=== PATIENT | female | born 2000 | race Caucasian/White ===

== ENCOUNTER 2025-01-06 11:34 | Outpatient (AMB) | payer OTHER, SELFPAY ==
--- NOTE | 2025-01-06 11:37 | MHC.PC.OV ---
Vital Signs 01/06/25 11:47 01/06/25 11:50 Height 5 ft 6.14 in Weight 291 lb 8 oz BMI 46.8 BP 136/96 H 134/98 H Blood Pressure Location Rt brachial Rt brachial Position Sitting Sitting Respiration 16 Pulse 83 Pulse Source Pulse Oximeter Pulse Oximetry (%) 97 Oxygen Delivery Method Room Air Intake Visit Reasons: OD GRINDER OPERATOR-PE Intake Note: New patient visit. hasn't taken adhd medication in a year. Psychiatrist wants heart clearance. Best Worker Required: No Accompanied by: Significant Other Allergies guanfacine Allergy (Severe, Verified 01/06/25 11:49) low blood pressure gabapentin Allergy (Verified 01/06/25 11:41) Fever Medication List - Last Reconciled 01/06/25 by Nadine Walls PA-C albuterol sulfate 90 mcg/actuation (Ventolin HFA) inhalation escitalopram oxalate 20 mg PO DAILY escitalopram oxalate 10 mg PO DAILY levothyroxine 175 mcg PO DAILY rosuvastatin 10 mg PO BEDTIME Tobacco use date assessed: 01/06/25 Dental Screening Dental Screen Date: 01/06/25 Did you have a dental visit in the last 12 months?: No Did you have a dental problem in the last 6 months where you did not have access to dental care?: No Was dental information given to patient?: Patient declined HPI OD GRINDER OPERATOR-PE HPI Details Patient is a 24-year-old female with a significant past medical history of hypothyroidism, hypertension, hyperlipidemia, asthma, bipolar, schizoaffective disorder, ptsd, anxiety, depression and ADHD presenting today to [facility] care. She is transferring from [facility]. Psych: Currently following with Dr. Hodges ? kei (pt will get), [facility]. On Lexapro 30 mg. They are waiting on adderall for bp to come down then restart. CV: Blood pressure today in the office is 134/98. He is currently on lisinopril 10 mg daily. Cholesterol is managed with rosuvastatin 10 mg at bedtime. Unsure of the last time she has had his lipids checked. Endo: Last TSH was WNL. On levothyroxine 175 mcg. GI: state she has been getting a lot of acid reflux x 2 weeks and taking tums BID. She states that it is helpful. No difficulty swallowing. No weight loss, n/v/d. Trying to cut out soda. Community Development Officer: overdue, has irregular menses. Fam hx: Mother has TIAs, htn, boderline personality and bipolar 2; maternal grandfather HTN; Paternal grandfather dm, htn, cva; Father hypothyroid PFSH Family History (Updated 01/06/25 @ 11:46 by Roshni Mauricio CMA) Brother Alcoholism Substance abuse Sister Anxiety Depression Mother Bipolar 2 disorder Schizoaffective disorder Social History (Updated 01/06/25 @ 11:50 by Roshni Mauricio CMA) Housing: Apartment Alcohol intake: current Comment: less then once a month Patient Tobacco Use Status: Former Tobacco user Cigarettes Per Day: 10 Years Smoked: 2 e-Cigarette/Vaping Use: Currently Using Second Hand Smoke Exposure: No service: No Current occupational status: disabled Current occupation: [employer] Cognitive needs: No Hearing needs: No Vision needs: No Questionnaire PHQ-9 Over the last 2 weeks, how often have you been bothered by any of the following problems? 1. Little interest or pleasure in doing things: several days 2. Feeling down, depressed, or hopeless: several days 3. Trouble falling or staying asleep, or sleeping too much: nearly every day 4. Feeling tired or having little energy: nearly every day 5. Poor appetite or overeating: nearly every day 6. Feeling bad about yourself - or that you are a failure or have let yourself or your family down: several days 7. Trouble concentrating on things, such as reading the newspaper or watching television: nearly every day 8. Moving or speaking so slowly that other people could have noticed. Or the opposite - being so fidgety or restless that you have been moving around a lot more than usual: several days 9. Thoughts that you would be better off or of hurting yourself in some way: several days Total score: 17 Depression Screening Interpretation: Positive Depression Screening Follow-up: Existing condition, In treatment and Community Mental Health Worker F/U Depression Screening Done: Yes 83780 - PHQ-9 Billing: Yes Source: Developed by Drs. Corey Hall, Yaneth Black, Patrice Boykin and colleagues, with an educational hector from [employer]. Thrive Questionnaire Date Thrive assessed: 12/23/24 I am a: Patient What is your living situation today?: I have a place to live, but I am worried about losing it in the future Within the past 12 months, did the food you bought not last and you didn't have the money to get more?: Often true Within the past 12 months, did you worry whether your food would run out before you got money to buy more?: Often true Do you have trouble paying for medicines?: No Do you have trouble getting transportation to medical appointments?: No Do you have trouble paying your heating and electricity bill?: Yes Do you have trouble taking care of your child, family member or friend?: No Do you have trouble with day-to-day activities such as bathing, preparing meals, shopping, managing finances, etc.?: Yes Are you currently unemployed and looking for a job?: Yes Are you interested in more education?: Yes Please select the resources that you would like help with: None THRIVE Score: 4 AUDIT C Alcohol Use Questionnaire (AUDIT-C) 1. How often do you have a drink containing alcohol?: Monthly or less 2. How many drinks containing alcohol do you have on a typical day when you are drinking?: 1 or 2 3. How often do you have six or more drinks on one occasion?: Never Total Score: 1 ABHI-7 AMB Questionnaire ABHI-7 Date ABHI - 7 assessed: 01/06/25 Feeling nervous, anxious, or on edge: 1 = Several days Not being able to stop or control worryin = Several days Worrying too much about different things: 1 = Several days Trouble relaxin = Nearly every day Being so restless that it is hard to sit still: 3 = Nearly every day Becoming easily annoyed or irritable: 3 = Nearly every day Feeling afraid as if something awful might happen: 1 = Several days Total ABHI-7 score (0-4 normal; 5-9 mild; 10-14 moderate; 15-21 severe): 13 Source: Developed by Drs. Corey Hall, Yaneth Black, Patrice Boykin and colleagues, with an educational hector from [employer]. ABHI-7 Assessment Billing ABHI-7 Assessment Tool: ABHI-7 Assessment 34367 Physical exam (Primary Care) Vital Signs: Last Vital Signs Pulse 83 01/06/25 11:47 Resp 16 01/06/25 11:47 BP 134/98 H 03/20/25 11:50 Pulse Ox 97 01/06/25 11:47 Oxygen Delivery Method Room Air 01/06/25 11:47 BMI result Body Mass Index 46.8 Tobacco/Smoking Status: Tobacco use Status Tobacco use date assessed 01/06/25 01/06/25 11:51 Patient Tobacco Use Status Former Tobacco user 01/06/25 11:51 e-Cigarette/Vaping Use Currently Using 01/06/25 11:51 PHQ-9: PHQ-9 Score PHQ-9: Total score 17 01/06/25 11:51 Depression Screening Interpretation: Positive Depression Screening Follow-up: Existing condition, In treatment and Community Mental Health Worker F/U Thrive Assessment: Date of Thrive Assessment Date Thrive assessed 12/23/24 01/06/25 11:51 Const Orientation/consciousness: patient oriented x3 HENMT Ears: hearing grossly normal bilaterally Neck Thyroid: Thyroid normal Lymphatic: no lymphadenopathy noted Resp Auscultation: clear to auscultation bilaterally Cardio Rate: regular rate Rhythm: regular rhythm Heart sounds: S1 normal heart sound present and S2 normal heart sound present GI Inspection: Yes normal to inspection Palpation (GI): Soft to palpation and Other GI palpation findings present (nontender, no cva tenderness) Auscultation: normoactive bowel sounds Rectal Exam - Female: deferred Skin General skin exam: no rashes or lesions noted Neuro General: patient oriented x3, gait normal and no focal motor deficits Coding Level of Care Code New Pt Level 4 (40283) Complex EM visit Add On G2211 Diagnoses HTN (hypertension) I10 Dyslipidemia E78.5 GERD (gastroesophageal reflux disease) K21.9 Additional Codes PHQ-9 - 47588 - PHQ-9 Billing: Yes ([id number]) ABHI-7 Assessment Billing - ABHI-7 Assessment Tool: ABHI-7 Assessment 17235 ([id number]) Assessment & Plan Assessment & Plan (1) HTN (hypertension): Code(s): I10 - Essential (primary) hypertension Category: Medical Plan: Increase lisinopril to 20 mg (2) Dyslipidemia: Code(s): E78.5 - Hyperlipidemia, unspecified Category: Medical Plan: Lipids ordered and LFTs. On Crestor 10 mg. (3) GERD (gastroesophageal reflux disease): Code(s): K21.9 - Gastro-esophageal reflux disease without esophagitis Category: Medical Plan: We will start omeprazole. Spent extensive time discussing diet changes. Plan Referral to gynecology. Overdue. Orders: Orders Complete Blood Count Auto Diff Today E78.5 - Hyperlipidemia, unspecified, I10 - Essential (primary) hypertension, K21.9 - Gastro-esophageal reflux disease without esophagitis UA CC w/rflx Micro + Cult Today E78.5 - Hyperlipidemia, unspecified, I10 - Essential (primary) hypertension, K21.9 - Gastro-esophageal reflux disease without esophagitis, Z13.220 - Encounter for screening for lipoid disorders Comprehensive [place]. Panel Fast Today E78.5 - Hyperlipidemia, unspecified, I10 - Essential (primary) hypertension, K21.9 - Gastro-esophageal reflux disease without esophagitis Hemoglobin A1c Today E78.5 - Hyperlipidemia, unspecified, I10 - Essential (primary) hypertension, K21.9 - Gastro-esophageal reflux disease without esophagitis, R73.01 - Impaired fasting glucose TSH reflex Free T4 Today E78.5 - Hyperlipidemia, unspecified, I10 - Essential (primary) hypertension, K21.9 - Gastro-esophageal reflux disease without esophagitis Vitamin B12 and Folate Today E78.5 - Hyperlipidemia, unspecified, I10 - Essential (primary) hypertension, K21.9 - Gastro-esophageal reflux disease without esophagitis Magnesium Today E78.5 - Hyperlipidemia, unspecified, I10 - Essential (primary) hypertension, K21.9 - Gastro-esophageal reflux disease without esophagitis Lipid Panel Today E78.5 - Hyperlipidemia, unspecified, I10 - Essential (primary) hypertension, K21.9 - Gastro-esophageal reflux disease without esophagitis Referrals GAR[facility]AGE MAN Referral [id number] - Encounter for gynecological examination (general) (routine) without abnormal findings Medications: New omeprazole 20 mg PO DAILY 90 caps 0RF lisinopril 20 mg PO DAILY 90 tabs 0RF
[2025-01-06 11:47] VITALS: BP 136/96; PULSE 83; RESP 16; O2SAT 97; BMI 46.8
[2025-01-06 11:50] VITALS: BP 134/98
--- OUTSIDE RECORDS SUMMARY | 2025-01-06 13:59 | XMS_ITS | Clinical Summary ---
Author Organization [facility] Address [address] [place] [address] Care Team Providers Care Healthcare Financial Analyst Name Role Phone Zulema Golden Primary Care Provider [phone] Allergies Active Allergy Reactions Criticality Noted Date Comments Gabapentin Other (See Comments) 01/31/2021 Guanfacine Other (See Comments) 01/31/2021 Dizziness. Low blood pressure Medications Medication Sig Dispensed Refills Start Date End Date Status methylphenidate (RITALIN LA) 40 MG 24 hr capsule 40 mg. 0 12/04/2019 Active escitalopram (LEXAPRO) 5 MG tablet 30 mg. 0 Active levothyroxine (SYNTHROID) tablet 150 mcg 150 mcg. 0 12/17/2019 Active albuterol 108 (90 Base) MCG/ACT inhaler Inhale 2 puffs into the lungs every 6 (six) hours as needed. 0 Active Fluticasone Furoate-Vilanterol 200-25 MCG/INH AEPB Inhale into the lungs. 0 Active ARIPiprazole (ABILIFY) 5 MG tablet Take 5 mg by mouth daily. 0 Active Immunizations Name Administration Dates Next Due Covid-19 (Pfizer) Dilution Required 02/22/2021,0 01/31/2021 Family History Medical History Relation Name Comments Hypertension Mother Relation Name Status Comments Father Alive Mother Alive Social History Tobacco Use Types Packs/Day Years Used Date Smoking Tobacco: Never Assessed Sex and Gender Information Value Date Recorded Sex Assigned at Female 01/25/2021 9:50 AM EDT Gender Identity Male 01/25/2021 9:50 AM EDT Sexual Orientation Not on file Job Start Date Occupation Industry Not on file Not on file Not on file Last Filed Vital Signs Vital Sign Reading Time Taken Comments Blood Pressure 177/97 06/23/2022 8:11 PM EDT Pulse 90 06/23/2022 8:11 PM EDT Temperature 37.2 ??C (99 ??F) 06/23/2022 8:11 PM EDT Respiratory Rate 16 06/23/2022 8:11 PM EDT Oxygen Saturation 97% 06/23/2022 8:11 PM EDT Inhaled Oxygen Concentration - - Weight 133.8 kg (295 lb) 06/23/2022 8:11 PM EDT Height 162.6 cm (5' 4 ) 06/23/2022 8:11 PM EDT Body Mass Index 50.64 06/23/2022 8:11 PM EDT Plan of Treatment Health Maintenance Due Date Last Done Comments Hepatitis B Vaccines (1 of 3 - 3-dose series) 1998 Hepatitis C Screening 1998 Depression Screening 2010 BMI Counseling 02/22/2016 Preventative Health Evaluation 02/22/2016 DTap / Tdap / Td (1 - Tdap) 2017 Cervical Cancer Screening (Pap Smear) 2019 COVID-19 Vaccine (2023-2 5 season) 2024 02/22/2021, 01/31/2021 Influenza Vaccine (#1) 2024 07/22/2013 Pneumococcal Vaccine Aged Out No long er eligible based on patient's age to complete this topic RSV Ped < 20 months Aged Out No longe r eligible based on patient's age to complete this topic Care Teams Healthcare Financial Analyst Relationship Specialty Start Date End Date Zulema Golden PA [address] [place] [id number] PCP - General Nursing Support Worker 01/31/21
--- OUTSIDE RECORDS SUMMARY | 2025-01-06 13:59 | XMS_ITS | Encounter Summary ---
Author Organization [facility] Address [address] [place] [address] Care Team Providers Care Drama Director Name Role Phone Zulema Golden Primary Care Provider Encounter Details Date Type Department Care Team (Latest Contact Info) Description 05/05/2020 Scanned Document [facility] [employer] [facility] [address] [place] [id number] System, Provider Not In 12/31/2019 [facility] Prior Authorization Testosterone Cypionate Social History Tobacco Use Types Packs/Day Years Used Date Smoking Tobacco: Some Days Smokeless Tobacco: Never Comments Unknown Sex and Gender Information Value Date Recorded Sex Assigned at Female 04/25/2020 7:22 AM EDT Legal Sex Nonbinary 12/02/2022 11:15 PM EST Gender Identity Other 12/02/2022 11:15 PM EST Sexual Orientation Bisexual 04/25/2020 7: 22 AM EDT documented as of this encounter Plan of Treatment Not on file documented as of this encounter Visit Diagnoses Not on filedocumented in this encounter Care Teams Drama Director Relationship Specialty Start Date End Date Zulema Golden PA [address] [facility] [address] [place] [address] PCP - General Internal Medicine 12/30/19 documented as of this encounter
--- OUTSIDE RECORDS SUMMARY | 2025-01-06 13:59 | XMS_ITS | Clinical Summary ---
Author Organization [facility] Address [address] [place] [address] Care Team Providers Care Nutrition Internship Name Role Phone Zulema Golden Primary Care Provider Allergies Active Allergy Reactions Criticality Noted Date Comments Gabapentin Other 08/22/2017 Hypotension and fever per patient Guanfacine Nausea And Vomiting,Other Low 01/28/2018 Low blood pressure, dizziness Medications escitalopram (LEXAPRO) 20 mg tablet 12/14/2019 Active levothyroxine (SYNTHROID, LEVOTHROID) 150 mcg tablet 150 mcg. Take 1 tablet daily 12/17/2019 Active methylphenidate LA (RITALIN LA) 40 mg 24 hr capsule 40 mg. 1 capsule daily 12/04/2019 Active albuterol (PROVENTIL;VENT NENO) 90 mcg/actuation inhaler Inhale 2 puffs every 6 (six) hours if needed. Active ARIPiprazole (ABILIFY) 5 mg tablet Take 5 mg by mouth 1 (one) time each day. Take 1 1/2 tablets daily 11/25/2017 Active ferrous sulfate 325 mg (65 mg iron) tablet take1 tablet by mouth daily 01/02/2018 Active testosterone cypionate (Depo-Testoster one) 200 mg/mL injectionIndica tions:Gender dysphoria Inject 0.3 mL (60 mg total) into the shoulder, thigh, or buttocks every 7 (seven) days. 12 mL 08/07/2021 Active Active Problems Problem Noted Date Diagnosed Date Asthma 12/30/2019 Hypothyroid 12/30/2019 Gender dysphoria 12/30/2019 Schizoaffective disorder, depressive type ([facility]) 11/12/2017 Immunizations Immunization Administration Dates Next Due Pfizer Purple Cap SARS-COV-2 Vaccination 021,01/31/2021 Social History Tobacco Use Types Packs/Day Years Used Date Smoking Tobacco: Some Days Smokeless Tobacco: Never Comments Unknown Sex and Gender Information Value Date Recorded Sex Assigned at Female 04/25/2020 7:22 AM EDT Legal Sex Nonbinary 12/02/2022 11:15 PM EST Gender Identity Other 12/02/2022 11:15 PM EST Sexual Orientation Bisexual 04/25/2020 7: 22 AM EDT Last Filed Vital Signs Vital Sign Reading Time Taken Comments Blood Pressure 136/82 08/07/2021 10:05 AM EDT Pulse 91 08/07/2021 10:05 AM EDT Temperature 36.5 ??C (97.7 ??F) 08/07/2021 1 0:05 AM EDT Respiratory Rate 16 12/30/2019 10:4 3 AM EDT Oxygen Saturation 98% 12/30/2019 10: 43 AM EDT Inhaled Oxygen Concentration - - Weight 129.4 kg (285 lb 3.2 oz) 021 10:05 AM EDT Height 165.1 cm (5' 5 ) 08/07/2021 10:0 5 AM EDT Body Mass Index 47.46 08/07/2021 10:05 AM EDT Plan of Treatment Scheduled Orders Name Type Priority Associated Diagnoses Orde r Schedule Comprehensive metabolic panel Lab Routine Gender dysphoria Expected: 11/02/2021, Expires: 08/14/2022 Hematocrit Lab Routine Gender dysphoria Expected: 11/02/2021, Expires: 08/14/2022 Hemoglobin Lab Routine Gender dysphoria Expected: 11/02/2021, Expires: 08/14/2022 Testosterone, Total, MS Lab Routine Gender dysphoria Expected: 11/02/2021, Expires: 08/14/2022 Comprehensive metabolic panel Lab Routine Gender dysphoria Expected: 08/07/2021 (Approximate), Expires: 08/07/2022 Lipid Panel Standard Lab Routine Gender dysphoria Expected: 08/07/2021 (Approximate), Expires: 08/07/2022 TSH Lab Routine Gender dysphoria Expected: 08/07/2021 (Approximate), Expires: 08/07/2022 Comprehensive metabolic panel Lab Routine Gender dysphoria Expected: 03/19/2020, Expires: 12/29/2020 CBC auto differential Lab Routine Gender dysphoria Expected: 12/30/2019 (Approximate), Expires: 12/29/2020 TSH Lab Routine Gender dysphoria 1 Occurrences starting 12/30/2019 until 12/29/2020 Health Maintenance Due Date Last Done Comments HPV Vaccines (1 - 3-dose series) 2013 Annual Physical Exam 02/22/2016 Pneumococcal Vaccine: Peds ( 0 to 5 Yrs) and At-Risk Pts (6 to 49 Yrs) (1 of 2 - PCV) 2017 Tdap and Td Vaccines Adult 2017 Pap Smear 2019 COVID-19 Vaccine (2023-2 5 season) 2024 02/22/2021, 01/31/2021 Influenza Vaccine (#1) 2024 HIB Vaccines Aged Out No longer eligi ble based on patient's age to complete this topic Hepatitis A Vaccines Aged Out No long er eligible based on patient's age to complete this topic IPV Vaccines Aged Out No longer eligi ble based on patient's age to complete this topic Meningococcal Vaccine Aged Out No fish radha eligible based on patient's age to complete this topic RSV <20 Months Aged Out No longer oli gible based on patient's age to complete this topic Insurance MEDICAID IN-STATE Care Teams Nutrition Internship Relationship Specialty Start Date End Date Zulema Golden PA [address] [facility] [address] [place] [address] PCP - General Internal Medicine 12/30/19
--- OUTSIDE RECORDS SUMMARY | 2025-01-06 13:59 | XMS_ITS | Data Portability ---
Author Organization [facility], [address] Address [address] [place] [address] Assessment No assessment recorded. Plan of Treatment Reminders Order Date Submit Date Provider Last Modified By Organization Details Last Modified Time Details Appointments None recorded. Lab streptococc us group A, culture, throat 2022 023 HUNGRY HORSE [facility] ([facility], [address] [place] [address], [place], [address], 3 12:06:29 rapid strep group A, throat 2022 023 [email or web address] _[facility], [address] [place] [address], [place], [address], 3 09:39:59 Referral otolaryngol ogist referral - Recurrent AOM and sinusitis for many years 2023 024 [email or web address] [facility], [address] [place], [address], 4 17:39:03 orthopedic surgeon referral 2023 024 [facility] Orthopedic Surgeon, [address], [facility] [address] [address], [place], [address], 4 08:44:46 physical therapist referral 2023 024 [facility] [place], [address] [place] [address], [address], 4 08:44:46 Procedures None recorded. Surgeries None recorded. Imaging None recorded. Medication Orders amoxicillin 875 mg-potassiu m clavulanate 125 mg tablet 2023 024 [facility], [address] [place], [address], 4 17:38:24 diclofenac sodium 75 mg tablet,nighat yed release 2023 [address], [address] [place], [address], 4 17:35:18 escitalopra m 20 mg tablet 2023 024 [facility], [address] [place], [address], 4 08:42:45 amoxicillin 875 mg-potassiu m clavulanate 125 mg tablet 2023 024 [facility], [address] [place], [address], 4 17:56:31 amoxicillin 875 mg tablet 2022 024 [id number], [address] [place], [address], 16:25:56 Patient TargetsNo targets recorded. Patient Instructions Encounter Date Encounter Id Patient Instructions Last Modified By Organization Details Last Modified Time 11/12/2022 [id number] sore throat: car e instructions [email or web address] Not available 11/12/2022 09:41:44 10/31/2023 [id number] ear infection (otitis media): care instructions Not available 10/31/2023 16:38:59 06/21/2024 [id number] knee pain or injury: care instructions Not available 06/21/2024 08:42:42 Reason for Referral Orthopedic Surgeon Referral for Injury of knee Referring Physician: Kaylie Baig, Urgent Care, Encounter Date: 06/21/2024 Physical Therapist Referral for Injury of knee Referring Physician: Kaylie Baig, Urgent Care, Encounter Date: 06/21/2024 Pricing Coordinator Referral fo r Chronic recurrent sinusitis Recurrent AOM and sinusitis for many years Referring Physician: Kaylie Baig, Urgent Care, Encounter Date: 10/07/2024 Results Created Date Observation Date Name Description Value Unit Range Abnormal Flag Note LastModifiedBy Organization Detail LastModifiedTime 11/12/1911/14/2022 BETA STREP GP A CULTU RE beta strep gp A culture COMMEN T abnormal Beta- hemol ytic colon ies, 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 Refer ence Range : Negat faiza Penic illin and ampic illin are drugs of choic e for treat ment of beta- hemol ytic strep tococ dawood infec tions . Susce ptibi lity testi ng of penic illin s and other beta- lacta m agent s appro dion by the FDA for treat ment of beta- hemol ytic strep tococ dawood infec tions need not be perfo rmed routi maggi becau se nonsu scept ible isola uli are extre gabrielle rare in any beta- hemol ytic strep tococ cus and have not been repor noe for Strep tococ cus pyoge alis (grou p A). (CLSI ) Not Available [facility] ([facility]) [address] [facility], [place], [address], 11/14/2022 12:06:29 11/12/1911/12/2022 rapid strep group A, throa t Unknown Analyte Normal = Negati ve Not Available [address] [place] [place], [address], 11/12/2022 09:39:47 11/12/1911/12/2022 rapid strep group A, throa t Unknown Analyte negati ve Not Available [address] [place], [address], 11/12/2022 09:39:47 Result Notes None recorded. Problems Name Problem SNOMED Code Status Onset Date Resolution Date Notes Provider Name and Address Organization Details Recorded Time Asthma 201855469 Active 2022 IRIS COUVERTIE R null, PA - [facility] 3 09:00:21 Diabetes mellitus 26295135 Active 2022 IRIS COUVERTIE R null, PA - [facility] 3 09:00:29 Hypothyroidism 61050108 Active 2022 IRIS COUVERTIE R null, PA - [facility] 3 09:00:35 Nasal sinus problem 608206673 Active 2022 IRIS COUVERTIE R null, PA - [facility] 3 09:00:48 Attention deficit hyperactivity disorder 926790844 Active 2022 IRIS COUVERTIE R null, PA - [facility] 3 09:01:11 Problem Notes None recorded. Procedures Surgical History Date Name Laterality Status Provider Name and Address Organization Details Recorded Time 4 Cerumen Removal by Irrigation completed MARCELA Elias [address] [place], [place] [address], [address], PA - [facility] 05/10/2024 18:13:53 Imaging Results None recorded. Procedure Notes None recorded. Medical Equipment None Reported. Allergies Allergen ID Allergen Name Allergen Category Reaction Reaction Severity Criticality Documentation Date Start Date Code Code System Note Provider Name and Address Organization Details Recorded Time 825066 gabapenti n medicatio n Not available Not available Not available 11/12/2022 75047 RxNorm IRIS COUVERTIE R null, PA - [facility] 3 08:58:46 783195 guanfacin e medicatio n other Not available Not available 11/12/2022 82354 RxNorm IRIS COUVERTIE R null, PA - [facility] 3 08:59:12 Medications Name Sig Start Date Stop Date Status Note LastModified by Organization Details LastModified Time lisinopril 10 mg tablet Take 1 tablet every day by oral route. active Not Available Not Available No t Available diclofenac sodium 75 mg tablet,nighat yed release Take 1 tablet twice a day by oral route for 14 days. 10/07 completed Not Available Not Available Not Available amoxicillin 875 mg-potassiu m clavulanate 125 mg tablet Take 1 tablet every 12 hours by oral route for 5 days. 2023 active Not Available Not Available Not Avai lable escitalopra m 20 mg tablet TAKE 1 TABLET BY MOUTH EVERY DAY active Not Available Not Available No t Available rosuvastati n 10 mg tablet Take 1 tablet every day by oral route. active Not Available Not Available No t Available levothyroxi ne active Not Available Not Available Not Available Ritalin 05/10 completed Not Available Not Available Not Available metformin 05/10 completed Not Available Not Available Not Available Adderall active Not Available Not Avai lable Not Available Lexapro active Not Available Not Avail able Not Available albuterol 90 mcg-budeson julienne 80 mcg/actuati on HFA aerosol inhaler Inhale by inhalatio n route. active Not Available Not Available No t Available Vitals Date Recorded Body height Pain severity - 0-10 verbal numeric rating [Score] - Reported Respiratory rate Body temperature Oxygen saturation Oxygen saturation in Arterial blood by Pulse oximetry Heart rate Body mass index (BMI) Body weight Systolic blood pressure Diastolic blood pressure Systolic blood pressure Diastolic blood pressure Provider Name and Address Organization Details Last Updated DateTime 4 165.1 cm 0 18 /min 97.5 [degF] 98 % 98 % 83 /min 45.3 kg/m2 516072. 12 g 158 mm[Hg] 106 mm[Hg] 150 mm[Hg] 98 mm[Hg] AILYN WEEMS PA - [facility] 4 16:30:53 Date Recorded Body height Body mass index (BMI) Body weight Body temperature Respiratory rate Heart rate Oxygen saturation Oxygen saturation in Arterial blood by Pulse oximetry Systolic blood pressure Diastolic blood pressure Provider Name and Address Organization Details Last Updated DateTime 3 165.1 cm 48.3 kg/m2 566385. 79 g 98.7 [degF] 18 /min 76 /min 97 % 97 % 128 mm[Hg] 88 mm[Hg] NEMO Reis PA - [facility] 3 09:04:38 Date Recorded Body height Body mass index (BMI) Body weight Body temperature Respiratory rate Oxygen saturation Oxygen saturation in Arterial blood by Pulse oximetry Heart rate Pain severity - 0-10 verbal numeric rating [Score] - Reported Systolic blood pressure Diastolic blood pressure Provider Name and Address Organization Details Last Updated DateTime 4 165.1 cm 45.3 kg/m2 937840. 12 g 97.7 [degF] 18 /min 100 % 100 % 89 /min 0 135 mm[Hg] 83 mm[Hg] Melvinatamar GallegosNolan [place] - [facility] 4 17:55:01 Date Recorded Body height Body mass index (BMI) Body weight Oxygen saturation Oxygen saturation in Arterial blood by Pulse oximetry Pain severity - 0-10 verbal numeric rating [Score] - Reported Heart rate Respiratory rate Body temperature Systolic blood pressure Diastolic blood pressure Provider Name and Address Organization Details Last Updated DateTime 4 165.1 cm 45.3 kg/m2 017204. 12 g 100 % 100 % 6 77 /min 18 /min 97.2 [degF] 136 mm[Hg] 93 mm[Hg] Tamika Isma [place] [facility] 4 08:32:31 Date Recorded Body height Body mass index (BMI) Body weight Oxygen saturation Oxygen saturation in Arterial blood by Pulse oximetry Pain severity - 0-10 verbal numeric rating [Score] - Reported Heart rate Respiratory rate Body temperature Systolic blood pressure Diastolic blood pressure Provider Name and Address Organization Details Last Updated DateTime 4 165.1 cm 44.9 kg/m2 412610. 94 g 98 % 98 % 0 76 /min 18 /min 98.3 [degF] 136 mm[Hg] 85 mm[Hg] Susan Rosario [facility] 4 17:34:50 Social History Question Answer Notes LastModified by Organizat ion Details LastModified Time Tobacco Smoking Status Former Smoker Susan gerardo PA - [facility] 10/07/2024 17:36:32 What Is Your Level Of Alcohol Consumption? None Information not available 11/12/2022 Are You Currently Employed? Yes [email or web address] Information not available 10/07/2024 Do You Or Have You Ever Used E-cigarettes Or Vape? Current User Of Electronic Cigarettes Information not available 10/07/2024 When Did You Quit Smoking? 1-5yearssincel kirby 07/2024 [email or web address] Information not available 10/07/2024 Have You Had A Flu Shot This Season? No [email or web address] Information not available 10/07/2024 If No, Would You Like A Flu Shot Today? No [email or web address] Information not available 10/07/2024 What Is Your Water Source? City Information not available 11/12/2022 What Is Your Heat Source? Gas Information not available 11/12/2022 Have You Had Direct Contact, Or Contact During Intimacy, With Monkeypox Rash, Scabs, Or Body Fluids From A Person With Monkeypox? No Information not available 11/12/2022 What Was The Date Of Your Most Recent Tobacco Screening? 10/07/2024 [email or web address] Information not available 10/07/2024 What Is Your Relationship Status? Domestic Partner [email or web address] Information not available 05/10/2024 Do You Or Have You Ever Used Smokeless Tobacco? Never Used Smokeless Tobacco [email or web address] Information not available 10/07/2024 Do You Use Any Illicit Or Recreational Drugs? No Information not available 11/12/2022 Have You Recently Traveled Abroad? No Information not available 11/12/2022 Do You Or Have You Ever Used Any Other Forms Of Tobacco Or Nicotine? Yes [email or web address] Information not available 10/07/2024 How Many Years Have You Used E-cigarettes Or Vape? 2023 [email or web address] Information not available 10/07/2024 Sex: Male Functional Status None recorded. Mental Status None recorded. Family History Relationship Description Onset Age of this Age Resolved Age Notes LastModified by Organization Details LastModified Time Father No current problems or disability Not available 09:01:14 Mother No current problems or disability Not available 09:01:14 Unspecified Relation Hypertensive disorder [email or web address] Not available 2023 16:31:11 Medical History No medical history recorded. Gynecological History Statement/Question Response Date of LMP 03/03/2024 Is there any chance of ? No LMP Definite Obstetrics History GPAL:G 0 P 0 0 0 0 Past Encounters Encounter ID Performer Location Encounter Start Date Encounter Closed Date Diagnosis/Indication Diagnosis SNOMED-CT Code Diagnosis ICD10 Code Diagnosis Note [id number] Jami Carr MD [address] [place] [address] 11/12/2022 08:46:40 11/12/2022 09:44:02 Acute pharyngitis 434895460 J02.9 [id number] [facility]ELA Elias [address] [facility] [facility] [address] [place] [address] 10/31/2023 16:12:06 10/31/2023 17:24:17 Acute left otitis media 877333651 H66.92 An ear infection may start with a cold and affect the middle ear (otitis media). It can hurt a lot. Most ear infections clear up on their own in a couple of days and do not need antibiotic s. Also, antibiotic s do not work against viruses, which may be the cause of your infection. Regular doses of pain relievers are the best way to reduce your fever and help you feel better.?How can you care for yourself at home?Take pain medicines exactly as directed.?If the doctor gave you a prescripti on medicine for pain, take it as prescribed .?If you are not taking a prescripti on pain medicine, take an over-the-c ounter medicine, such as acetaminop hen (Tylenol), ibuprofen (Advil, Motrin), or naproxen (Aleve). Read and follow all instructio ns on the label.?Do not take two or more pain medicines at the same time unless the doctor told you to. Many pain medicines have acetaminop hen, which is Tylenol. Too much acetaminop hen (Tylenol) can be harmful.?Plan to take a full dose of pain reliever before bedtime. Getting enough sleep will help you get better.?Try a warm, moist face cloth on the ear. It may help relieve pain.?If your doctor prescribed antibiotic s, take them as directed. Do not stop taking them just because you feel better. You need to take the full course of antibiotic s. [id number] MARCELA Elias [address] [place] [address] 05/10/2024 17:49:30 05/10/2024 18:17:54 Impacted cerumen in right ear 6974722718 883750 H61.21 Based on your presentati on and exam - you have cerumen impaction. We removed the wax from your ears today. You may feel like you have some residual water in the ear for the next couple of hours. If you have this sensation use rubbing alcohol (not peroxide) in the ear. This will help reabsorb the water left in the ear. If antibiotic ear drops were prescribed to you- then use them as prescribed . Sometimes antibiotic s are not needed and the decision is based on the presentati on of the ear after the procedure. Would advise using Debrox every 2 weeks to help with ear wax build up if you are prone to this. Do not use Q-tip deep in the ear because that just pushes wax back in the ear canal. You should be seen again if you develop any of the following symptoms:1 . Severe ear pain2. Fever3. Blood discharge from the ear or Purulent discharge from the ear4. Pain with touching the ear5. Skin redness outside the ear6. Swollen lymph nodes around the ear or neck7. Stiff neck. Thank you for using [facility] today, please feel free to contact our office if you have any questions or concerns. [id number] [facility]A Eli[facility] [address] [facility] [facility] [address] [place] [address] 06/21/2024 08:20:24 06/21/2024 08:44:45 Injury of knee 642060139 S89.92XA Based on your presentati on and exam, you are diagnosed with an knee sprain. I am going to prescribe you an anti-infla mmatory medication to help with the discomfort . Get a hinged knee brace at a pharmacy and wear that as much as you can Please schedule an appt with orthopedic s and physical therapy My suggestion s for this condition include:1. Ice2. Elevate3. Rest4. Take Tylenol if you do not have any allergies to these medication s. If you take a blood thinner you should not take NSAIDS like Ibuprofen. 5. After 3 days of icing - I would switch to heat - this will help reabsorb any bruising or swelling. I would be seen more urgently if you develop any of the following symptoms.1 . Numbness2. Cold Extremitie s3. Worsening Pain4. Skin Redness5. Calf Swelling Thank you for using [facility] [employer] , please contact our office if you have any questions or concerns. Anxiety 10355779 F41.9 We are filling your medication as a 1 time courtesy refill. We are unable to refill in the future. Please ensure you have follow up with your PCP for future medication management [id number] MARCELA Elias [address] [facility] [address] [place] [address] 10/07/2024 17:22:07 10/07/2024 17:39:02 Acute left otitis media 894173999 H66.92 An ear infection may start with a cold and affect the middle ear (otitis media). It can hurt a lot. Most ear infections clear up on their own in a couple of days and do not need antibiotic s. Also, antibiotic s do not work against viruses, which may be the cause of your infection. Regular doses of pain relievers are the best way to reduce your fever and help you feel better.?How can you care for yourself at home?Take pain medicines exactly as directed.?If the doctor gave you a prescripti on medicine for pain, take it as prescribed .?If you are not taking a prescripti on pain medicine, take an over-the-c ounter medicine, such as acetaminop hen (Tylenol), ibuprofen (Advil, Motrin), or naproxen (Aleve). Read and follow all instructio ns on the label.?Do not take two or more pain medicines at the same time unless the doctor told you to. Many pain medicines have acetaminop hen, which is Tylenol. Too much acetaminop hen (Tylenol) can be harmful.?Plan to take a full dose of pain reliever before bedtime. Getting enough sleep will help you get better.?Try a warm, moist face cloth on the ear. It may help relieve pain.?If your doctor prescribed antibiotic s, take them as directed. Do not stop taking them just because you feel better. You need to take the full course of antibiotic s. Chronic re current sinusitis 198886515 J32.9 Health Concerns Section Related Observation LastModified by Organization Detai ls LastModified Time None Recorded Concern Status LastModified by Organization Details LastModified Time None Recorded Advance Directives Directive None Recorded Payers Encounter Date Sequence Insurance Name Policy Number Policy Qiu Covered Member ID Qiu Member ID Guarantor Name 11/12/2022 1 [place] [id number] Lionel Sheldon Pleasent [id number] Fawad Reed 10/31/2023 1 [place] [id number] Lionel Sheldon Pleasent [id number] Fawad Reed 05/10/2024 2 [place] [facility] Fawad Reed [id number] Fawad Reed 05/10/2024 1 [facility] [employer] [facility] PLAN (MEDICAID HMO) PABLO Reed [id number] Fawad Reed 06/21/2024 2 [place] [facility] Fawad Reed [id number] Fawad Reed 06/21/2024 1 [facility] [employer] [facility] PLAN (MEDICAID HMO) PABLO Reed [id number] Fawad Reed 10/07/2024 2 [place] [facility] Fawad Reed [id number] Fawda Reed 10/07/2024 1 [facility] [employer] [facility] PLAN (MEDICAID HMO) PABLO Reed [id number] Fawad Reed Notes Date Note Type Note Provider Name and Address Organization Details Recorded Time 11/12/2022 text/html Sore throatRepor noe bypatient.Location:t hroat Severity:moderate Quality:sharp Onset/Timin weeks Associated Symptoms:no cough; no sputum production; no shortness of breath; no wheezing; no sinus pain; no vomiting; no nausea; No hoarseness Context:no sick contacts; no foreign travel; non-smoker Jami Carr MD [address] [place], [address], [place] - [facility] 11/12/2022 10:20:47 05/10/2024 text/html 24 y/o pt here w ith R ear feeling clogged for the past 3 days [place], [address], [place] PA - [facility] 05/10/2024 18:14:11 06/21/2024 text/html 24 y/o female he re with L knee pain after it may have subluxed last night. She has had issues with it for several years, and has not had evaluation or treatment.Squatted down last night and started having worsening pain. MARCELA Elias [address] [place], [address], PA - [facility] 06/21/2024 09:02:49 10/07/2024 text/html 24 y/o pt with several days of L ear discomfort and feeling clogged. h/o recurrent AOM and sinus issues[place], [address], [place] PA - [facility] 10/07/2024 17:46:52 OBGyn Episode No OBEpisode recorded.
--- OUTSIDE RECORDS SUMMARY | 2025-01-06 13:59 | XMS_ITS | Encounter Summary ---
Author Organization [facility] Address [address] [place] [address] Care Team Providers Care Drum Puller Name Role Phone Zulema Golden Primary Care Provider Encounter Details Date Type Department Care Team (Latest Contact Info) Description 05/05/2020 Scanned Document [employer] Information Management [address] [place] [address] System, Provider Not In 12/31/2019 Endocrinology Review of Systems Social History Tobacco Use Types Packs/Day Years [...] on filedocumented in this encounter Care Teams Drum Puller Relationship Specialty Start Date End Date Zulema Golden PA [address] [facility] [address] [place] [address] PCP - General Internal Medicine 12/30/19 documented as of this encounter
--- OUTSIDE RECORDS SUMMARY | 2025-01-06 13:59 | XMS_ITS | Encounter Summary ---
Author Organization [facility] Address [address] [place] [address] Care Team Providers Care Production Support Developer Name Role Phone Zulema Golden Primary Care Provider [phone] Zulema Golden Unavailable [phone] Encounter Details Date Type Department Care Team (Late st Contact Info) Description 02/16/2024 Orders Only [facility] Primary Care [address] [place] [address] Zulema Golden PA [address] [facility] [address] [place] [address] Social History Tobacco Use Types Packs/Day Years Used Date Smoking Tobacco: Every Day Cigarettes Comments:Smoking Status:Curr ently using tobacco PHQ-2 Answer Date Recorded PHQ-2 Score 0 01/16/2024 Intimate Partner Violence Answer Date R ecorded Fear of Current or Ex-Partner Not on file Emotionally Abused Not on file 06/04/2023 Physically Abused Not on file 06/04/2023 Sexually Abused Not on file 06/04/2023 Feel Safe at Home Not on file 06/04/2023 Comments Unknown Sex and Gender Information Value Date Recorded Sex Assigned at Female 12/24/2023 1:55 PM EST Legal Sex X 12/24/2023 1:55 PM EST Gender Identity Genderqueer or Non-binary 2023 1:55 PM EST Sexual Orientation Bisexual 12/24/2023 1: 55 PM EST documented as of this encounter Miscellaneous Notes * Result Encounter Note - Zulema Golden PA - 02/16/2024 9:26 PM EDT . documented in this encounter Plan of Treatment Not on file documented as of this encounter Goals Goal Patient Goal Type Associated Problems Recent Progress Patient-Stated? Author Blood Pressure < 140/90 Blood Pressure 132/94(01/15 2:42 PM EDT) No Zulema Golden PA Note: Above is your goal for blood pressure control. You may be able to prevent, reduce or eliminate the medication required for your blood pressure by regular measurement of your blood pressure at home, since home readings are often more reliable than measurements at the doctor? s office. You can also improve your blood pressure by getting regular exercise, keeping a normal weight, reducing your sodium/salt intake to 2000 mg/day, reducing caffeine and by limiting your alcohol intake. Men should limit consumption to no more than 2 drinks per day (beer, wine, or mixed drinks) and women should limit to one drink per day. Follow the DASH diet, a diet low in fat, cholesterol, red meat, and sweets. It emphasizes fruits, vegetables, and low-fat dairy foods. The DASH diet also includes whole-grain products, fish, poultry, and nuts. Quit smoking / using tobacco Lifestyle No Zulema Golden PA Note: Smoking can cause cancer, heart attacks, hardening of the arteries, bronchitis, emphysema, cough, shortness of breath, wrinkles, and premature aging and premature births. Some benefits of quitting smoking begin right away. Your risk of heart disease begins to decrease as soon as you quit. Your general health may also start to improve immediately because you are not irritating your lungs and more oxygen gets to your body organs. Your blood circulation is likely to get better. Other benefits may include fewer colds and lung infections as well as reduced risk of high blood pressure, stroke, and cancer. Interested in quitting smoking? Discuss medication options with your provider or contact the Quit To Win program at . Any insurance accepted. Quit smoking resources-http://makesSeeder.org HEMOGLOBIN A1C % < 7 Result Component 5.8(02/16/20 24 2:58 PM EDT) Alisha Hernández MA Note: Above is your goal for sugar control. Your risk for future diabetic complications such as blindness and amputation can be reduced by following your diabetic diet plan, and paying careful attention to self-monitoring your blood sugar and blood pressure at home. Please plan to check your blood sugar and blood pressure at the frequency suggested, and bring these numbers with you to your next scheduled visit. If you have difficulty reaching the goals which you have set for your diabetes your PCP can refer to one of our diabetes self-management support programs. A fasting blood sugar below 120 is ideal. documented as of this encounter Procedures * Due to [place] law, this organization might not be sharing negative HIV tests. Procedure Name Priority Date/Time Associated Diagnosis Comments THYROID STIMULATING HORMONE (TSH) WITH FREE T4 REFLEX, SERUM Routine 02/16/2024 2:58 PM EDT Acquired hypothyroidism T4, FREE, SERUM Routine 02/16/2024 2:58 PM EDT Acquired hypothyroidism HEMOGLOBIN A1C Routine 02/16/2024 2:58 PM EDT Type 2 diabetes mellitus without complication, without long-term current use of insulin (HCC) documented in this encounter Results * Due to [place] law, this organization might not be sharing negative HIV tests. * (ABNORMAL) T4, FREE, SERUM (02/16/2024 2:58 PM EDT) FT4 1.86(H) 0.70 - 1.80 ng/dL [facility] 02/16/2024 2:58 PM EDT 02/16/2024 9:53 PM EDT Narrative [facility] - 02/17/2024 1:44 AM EDT Testing Performed at: [facility], [address] [place], [place] [id number], , Non Linear Editor: Sherice Auguste MD CL#[id number] [facility] Final Resul t Performing Organization Address [facility] de Phone Number [facility] [address] [place] [address], * (ABNORMAL) THYROID STIMULATING HORMONE (TSH) WITH FREE T4 REFLEX, SERUM (02/16/2024 2:58 PM EDT) TSH (Thyrotropin) 0.42(L) 0.50 - 4.80 uIU/ml [facility] 02/16/2024 2:58 PM EDT 02/16/2024 9:53 PM EDT Narrative [facility] - 02/16/2024 10:58 PM EDT Track Order?->No Release result to patient->Immediate Testing Performed at: [facility], [address] [place] [address], , Non Linear Editor: Sherice Auguste MD CL#[id number] [facility] Final Resul t Performing Organization Address [facility] de Phone Number [facility] [address] [place] [address], * HEMOGLOBIN A1C (02/16/2024 2:58 PM EDT) Hemoglobin A1C 5.8 4.3 - 6.1 %A1C [facility] Comment: 5.7-6.4 Increased Risk of Diabetes >6.4 Consistent with Diabetes The [place] [employer] recommends a goal of less than 7% for diabetic patients. 02/16/2024 2:58 PM EDT 02/16/2024 9:53 PM EDT Narrative [facility] - 02/16/2024 10:22 PM EDT Track Order?->No Release result to patient->Immediate FASTING: NO Testing Performed at: [facility], [address] [place] [address], , Non Linear Editor: Sherice Auguste MD CL#[id number] us [facility] Final Resul t [facility] [address] [place] [address], documented in this encounter Visit Diagnoses Diagnosis Type 2 diabetes mellitus without complication, without long-term current use of insulin (HCC) Acquired hypothyroidism Unspecified hypothyroidism documented in this encounter Care Teams Production Support Developer Relationship Specialty Start Date End Date Zulema Golden PA [address] [facility] [address] [place] [address] PCP - General 05/26/23 Zulema Golden PA [address] [facility] [address] [place] [address] PCP - Backup PCP Internal Medicine 11/20/23 documented as of this encounter
--- OUTSIDE RECORDS SUMMARY | 2025-01-06 14:00 | XMS_ITS | Encounter Summary ---
Author Organization [facility] Address [address] [place] [address] Care Team Providers Care Spinner Open End Name Role Phone Zulema Golden Primary Care Provider [phone] Zulema Golden Unavailable [phone] Reason for Visit * Reason Comments Results Encounter Details Date Type Department Care Team (Late st Contact Info) Description 12/26/2023 Telephone [facility] Primary Care [address] [place] [id number] Zulema Golden PA [address] [facility] [address] [place] [address] Results Social History Tobacco Use Types Packs/Day Years Used Date Smoking Tobacco: Never Assessed Comments:Smoking Status:Curr ently using tobacco Intimate Partner Violence Answer Date R ecorded [...] as of this encounter Miscellaneous Notes * Telephone Encounter - Alisha Sutton MA - 12/26/2023 4:13 PM EST Spoke with pt I will have someone for admin put pt on schedule on friday * Telephone Encounter - Mary Castro - 12/26/2023 4:04 PM EST Please call patient back. * Telephone Encounter - Alisha Sutton MA - 12/26/2023 3:34 PM EST Called pt lvm to call me * Telephone Encounter - Zulema Golden PA - 12/26/2023 2:37 PM EST Please call pt- Appointment is needed as he has not been in the office for over a year. His labs doshow uncontrolled hypothyroidism. Please ask if he is taking his Levothyroxine 175mcg daily. If he is out of medications I can refill but he needs an ov kimberly * Telephone Encounter - Alisha Sutton MA - 12/26/2023 1:39 PM EST Please see * Telephone Encounter - Mary Castro - 12/26/2023 1:00 PM EST Patient is looking for lab results please. Patient would like any potential medications sent to [facility] today as he is leaving [facility]. Thank you documented in this encounter Plan of Treatment Not on file documented as of this encounter Visit Diagnoses Not on filedocumented in this encounter Care Teams Spinner Open End Relationship Specialty Start Date End Date Zulema Golden PA [address] [facility] [address] [place] [address] PCP - General 05/26/23 Zulema Golden PA [address] [address] PCP - Backup PCP Internal Medicine 11/20/23 documented as of this encounter
--- OUTSIDE RECORDS SUMMARY | 2025-01-06 14:00 | XMS_ITS | Encounter Summary ---
Author Organization [facility] Address [address] [place] [id number] Care Team Providers Care Boat Builder And Repairer Name Role Phone Abad Mccann MD Primary Care Provider Zulema Golden Primary Care Provider Abad Mccann MD Unavailable [phone] Encounter Details Date Type Department Care Team (Late st Contact Info) Description 09/24/2017 Scanned Document [facility] [address] [facility] [address] [place] [address] Sarah Sherman MD [address] [facility] [address] [place] [address] Social History Tobacco Use Types Packs/Day Years Used Date Smoking Tobacco: Some Days Sex and Gender Information Value Date Recorded Sex Assigned at Female 06/22/2023 1:10 AM EDT Gender Identity Gender fluid 12/02/2022 10:43 PM EST Sexual Orientation Bisexual 12/02/2022 10 :43 PM EST Sexual Orientation Pansexual 12/02/2022 10 :43 PM EST documented as of this encounter Plan of Treatment Not on file documented as of this encounter Visit Diagnoses Not on filedocumented in this encounter Care Teams Boat Builder And Repairer Relationship Specialty Start Date End Date Abad Mccann MD Carmina Ochoa [address] [place] [id number] PCP - General Family Medicine 10/09/16 10/28/20 Zulema Golden [address] [place] [address] [address] [place] [address] PCP - General Internal Medicine 10/29/20 Abad Mccann MD [address] [place] [address] [address] Family Medicine 10/29/20 documented as of this encounter
--- OUTSIDE RECORDS SUMMARY | 2025-01-06 14:00 | XMS_ITS | Data Portability ---
Author Organization [facility], [facility] Address [address] [place] [address] [id number] [place] [address] Care Team Providers Care Coding Quality Analyst Name Role Phone DEYSI MCCORMICK Primary Care Provider [phone] Assessment No assessment recorded. Plan of Treatment Reminders Order Date Submit Date Provider Last Modified By Organization Details Last Modified Time Details Appointments None recorded. Lab TSH + free T4, serum [facility], [address] [place], [address] 16:13:54 Referral None recorded. Procedures None recorded. Surgeries None recorded. Imaging None recorded. Medication Orders betamethaso ne valerate 0.1 % topical ointment 2021 [facility][id number], [address] [place], [address], 12:59:12 Patient TargetsNo targets recorded. Patient InstructionsNo instructions recorded. Reason for Referral None Reported. Problems Name Problem SNOMED Code Status Onset Date Resolution Date Notes Provider Name and Address Organization Details Recorded Time Asthma 182459990 Active 2021 Kiarelyn Dumont null, [facility] 11:59:50 Hypothyroidism 82269022 Active 2021 Kiarelyn Dumont null, [facility] 12:00:05 Type 2 diabetes mellitus 32230982 Active 2021 Kiarelyn Dumont null, [facility] 10/04/202 2 12:00:15 Mental disorder 48414668 [facility] 12:[facility] Schizoaffectiv e schizophrenia 883387717 [facility] 12:17[facility] Problem Notes None recorded. Procedures Surgical History Date Name Laterality Status Provider Name and Address Organization Details Recorded Time Mastectomy Bilateral completed Zhang Dumont [facility] 07/23/2022 12:12:20 Imaging Results None recorded. Procedure Notes None recorded. Medical Equipment None Reported. Allergies Allergen ID Allergen Name Allergen Category Reaction Reaction Severity Criticality Documentation Date Start Date Code Code System Note Provider Name and Address Organization Details Recorded Time 9513335 gabapenti n medicatio n fever Not available Not available 07/23/2022 08503 RxNorm Zhang Dumont [facility] 2 11:56:53 2012117 guanfacin e medicatio n Not available Not available Not available 07/23/2022 40130 RxNorm low bp Zhang Dumont [facility] 11:58:05 Medications Name Sig Start Date Stop Date Status Note LastModified by Organization Details LastModified Time metformin 500 mg tablet TAKE 1 TABLET BY MOUTH EVERY 12 HOURS active Not Available Not Available No t Available betamethaso ne valerate 0.1 % topical ointment APPLY A THIN LAYER TO THE AFFECTED AREA(S) BY TOPICAL ROUTE 3 TIMES/WEE K active Not Available Not Available No t Available Apri 0.15 mg-0.03 mg tablet TAKE 1 TABLET BY MOUTH EVERY DAY 07/23 completed Not Available Not Available Not Available BD Regular Bevel [place] 18 gauge x 1 active Not Available Not Available N ot Available levothyroxi ne 150 mcg tablet TAKE 1 TABLET BY MOUTH EVERY DAY active Not Available Not Available No t Available albuterol sulfate HFA 90 mcg/actuati on aerosol inhaler active Not Available Not Available Not Available escitalopra m 20 mg tablet TAKE 1 TABLET BY MOUTH EVERY DAYFILL 07/21 active Not Available Not Available No t Available aripiprazol e 10 mg tablet TAKE 1 TABLET BY MOUTH EVERY DAY active Not Available Not Available No t Available aripiprazol e 5 mg tablet TAKE 1 & 1/2 TABLETS BY MOUTH EVERY DAY active Not Available Not Available No t Available methylpheni date LA 40 mg biphasic 50-50 capsule,ext ended release TAKE 1 CAPSULE BY MOUTH EVERY DAY active Not Available Not Available No t Available Breo Ellipta 200 mcg-25 mcg/dose powder for inhalation active Not Available Not Available N ot Available Accu-Chek Guide Me Glucose Meter USE 1 TIME DAILY active Not Available Not Available No t Available Vitals Date Recorded Body weight Body mass index (BMI) Body height Systolic blood pressure Diastolic blood pressure Provider Name and Address Organization Details Last Updated DateTime 07/23/2022 155860.1 6 g 48.9 kg/m2 165.1 cm 124 mm[Hg] 84 mm[Hg] Zhang Dumont [place] - [facility] 12:28:36 Social History Question Answer Notes LastModified by Organizat ion Details LastModified Time In The 14 Days Before Symptom Onset, Have You Had Close Contact With A Laboratory-confir med COVID-19 While That Case Was Ill? No Information not available 07/23/2022 In The 14 Days Before Symptom Onset, Have You Had Close Contact With A Person Who Is Under Investigation For COVID-19 While That Person Was Ill? No [email or web address] Information not available 07/23/2022 Have You Been To An Area Known To Be High Risk For COVID-19? No [email or web address] Information not available 07/23/2022 Do You Reside In Or Have You Traveled To An Area Where Ebola Virus Transmission Is Active? No [email or web address] Information not available 07/23/2022 Have You Recently Or Are You Planning To Travel To An Area With Zika Virus? No [email or web address] Information not available 07/23/2022 Do You Have Any Children? No [email or web address] Information not available 07/23/2022 Does Your Partner Physically Hurt You Or Threaten To Hurt You? No [email or web address] Information not available 07/23/2022 Has Your Partner Forced You To Have Sex Or Perform Sex Acts When You Did Not Want To? No [email or web address] Information not available 07/23/2022 Does Your Partner Insult, Scream At Or Talk Down To You? No [email or web address] Information not available 07/23/2022 Does Your Partner Control You Or Any Part Of Your Life? No [email or web address] Information not available 07/23/2022 Are You Afraid Of Your Partner? No [email or web address] Information not available 07/23/2022 Drug Use? No [email or web address] Information no t available 07/23/2022 Do You Feel Safe At Home? Yes [email or web address] Information not available 07/23/2022 How Many Children Do You Have? 0 [email or web address] Information not available 07/23/2022 Are You Sexually Active? Yes Boyfriend Is A Transgender [email or web address] Information not available 07/23/2022 Have You Recently Traveled Abroad? No [email or web address] Information not available 07/23/2022 Sex: Female Functional Status None recorded. Mental Status None recorded. Family History Relationship Description Onset Age of this Age Resolved Age Notes LastModified by Organization Details LastModified Time Paternal Grandmother Asthma pt. added direct ly (06/24) [email or web address] Not available 06/24/2022 12:19:30 Maternal Grandfather Cerebrovascu lar accident pt. added direct ly (06/24) [email or web address] Not available 06/24/2022 12:33:21 Maternal Grandfather Hypertensive disorder pt. added direct ly (06/24) [email or web address] Not available 06/24/2022 12:38:10 Mother Cerebrovascu lar accident pt. added direct ly (06/24) [email or web address] Not available 06/24/2022 12:33:21 Mother Depressive disorder pt. added direct ly (06/24) [email or web address] Not available 06/24/2022 12:34:22 Mother Hypertensive disorder pt. added direct ly (06/24) [email or web address] Not available 06/24/2022 12:38:10 Mother Malignant tumor of breast pt. added direct ly (06/24) [email or web address] Not available 06/24/2022 12:40:50 Mother Mental disorder pt. added direct ly (06/24) [email or web address] Not available 06/24/2022 12:41:47 Paternal Grandfather Coronary arterioscler osis pt. added direct ly (06/24) [email or web address] Not available 06/24/2022 12:33:52 Paternal Grandfather Diabetes mellitus pt. added direct ly (06/24) [email or web address] Not available 06/24/2022 12:35:27 Paternal Grandfather Heart disease pt. added direct ly (06/24) [email or web address] Not available 06/24/2022 12:37:24 Paternal Grandfather Hyperlipidem ia pt. added direct ly (06/24) [email or web address] Not available 06/24/2022 12:37:45 Paternal Grandfather Hypertensive disorder pt. added direct ly (06/24) [email or web address] Not available 06/24/2022 12:38:10 Paternal Grandfather Kidney disease pt. added direct ly (06/24) [email or web address] Not available 06/24/2022 12:38:20 Brother Depressive disorder pt. added direct ly (06/24) [email or web address] Not available 06/24/2022 12:34:22 Brother Mental disorder pt. added direct ly (06/24) [email or web address] Not available 06/24/2022 12:41:47 Sister Depressive disorder pt. added direct ly (06/24) [email or web address] Not available 06/24/2022 12:34:22 Sister Disorder of thyroid gland pt. added direct ly (06/24) [email or web address]-13 Not available 06/24/2022 12:36:04 Sister Mental disorder pt. added direct ly (06/24) [email or web address] Not available 06/24/2022 12:41:47 Maternal Grandmother Depressive disorder pt. added direct ly (06/24) [email or web address] Not available 06/24/2022 12:34:22 Maternal Grandmother Mental disorder pt. added direct ly (06/24) [email or web address] Not available 06/24/2022 12:41:47 Father Disorder of thyroid gland pt. added direct ly (06/24) [email or web address] Not available 06/24/2022 12:36:04 Father Hyperlipidem ia pt. added direct ly (06/24) [email or web address] Not available 06/24/2022 12:37:45 Unspecified Relation Malignant tumor of ovary pt. added direct ly (06/24) [email or web address] Not available 06/24/2022 12:41:17 Paternal Aunt Mental disorder pt. added direct ly (06/24) [email or web address] Not available 06/24/2022 12:41:47 Medical History Condition Response *No Diseases or Conditions N Blood clots N Benign breast disease N Defects or Inherited Disease N Anesthesia Complications N Anxiety Disorder Y Arthritis N Abnormal pap N Acid Reflux (GERD) N Autoimmune disorder N Thyroid Problems Y Anemia N Blood Transfusions N Bladder disease N Abnormal Uterine Bleeding N Abuse/Domestic Violence N Asthma Y Gynecological History Statement/Question Response Benign Breast Disease N Flow Heavy Date of LMP 06/15/2022 IPV Screen Done 07/23/2022 Post Menopausal Bleeding N STIs/STDs N PID N Cervical Cancer N History of Endometrial Biopsy? N BrCa gene tested? N Ovarian Cancer N Breast Cancer N Bladder Problems N Abnormal Uterine Bleeding N BrCa Positive N Infertility N Sexual Orientation bi-sexual Duration of Flow (days) 15 Endometriosis N Age at Menarche 9 Fibroids N Uterine Cancer N Frequency of Cycle (Q days) Sexually Active? Y Obstetrics History GPAL:G 0 P 0 0 0 0 Immunizations Vaccine Type Date Status Note Provider Nam e and Address Organization Details Recorded Time Influenza, split virus, quadrivalent, PF 2 completed DAT GRAY CNM [address] [facility], [address], [place], [address], [facility] 07/23/2022 13:38:03 Influenza, split virus, quadrivalent, preservative 2 completed Zhang gerardo, [facility] 07/23/2022 11:59:27 Past Encounters Encounter ID Performer Location Encounter Start Date Encounter Closed Date Diagnosis/Indication Diagnosis SNOMED-CT Code Diagnosis ICD10 Code Diagnosis Note [id number] DAT [facility]ATFIELD CNM [address] [place] [address] 07/23/2022 11:47:39 07/23/2022 13:04:56 Administration of influenza vaccine 28103818 Z23 Menorrhagia 853101536 N9 2.0 TV US and TSH, FT4. If normal, pt interested in trying OCP again. Only used for 1.5 months via ER. Reviewed IUD, depo and nexplanon but prefers OCP. F/U after US. sign release of records to see when due for AOV/pap Genital lichen planus 23 8677280 L43.9 Advised of early stage lichen planus. Reviewed etiology, symptoms, treatment. Looked together with mirror to show changes and how and where to apply ointment. Literature given. F/U 6 months Health Concerns Section Related Observation LastModified by Organization Detai ls LastModified Time None Recorded Concern Status LastModified by Organization Details LastModified Time None Recorded Advance Directives Directive None Recorded Payers Encounter Date Sequence Insurance Name Policy Number Policy Qiu Covered Member ID Qiu Member ID Guarantor Name 07/23/2022 1 [place]IS[place] MALONE ([place]) [id number] Lionel Singh [id number] Fawad Reed 07/23/2022 2 [place] Fawad Reed [id number] Fawad Reed Notes Date Note Type Note Provider Name and Address Organization Details Recorded Time 07/23/2022 text/html [facility] Abnormal BleedingReported bypatient.Onset/Timing :past 3-5 cycles Duration:10-15 days/month Quality:heavy; passing clots Severity:changing pad/tampon every 1-2 hours; bleeding through onto clothes/sheets Context:occurs after intercourse (some spotting); was at the er was given apri Associated Symptoms:anemia/iron supplements(low on iron last ER were she went)Notes:Has always had irregular menses but prolonged, heavy menses only since 04/2022. The only new regimen is metformin. Used Apri for 1.5 cycles as ER didn't want to prescribe for daily use. 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 Pt states she has been having heavy bleeding menses lasting 15 days. Pt states she always had irregular menses .Pt states started tracking menses in April 1904/27 -05/11 2nd menses 05/20-06/03 went to er gave her apri 3rd menses 06/15-06/29. Pt states she had some spotting DAT GRAY CNM [address] [place] [address], [address], [place], [address], [place] [facility] 07/23/2022 13:44:11 OBGyn Episode No OBEpisode recorded.
--- OUTSIDE RECORDS SUMMARY | 2025-01-06 14:00 | XMS_ITS | Clinical Summary ---
Author Organization [facility] Address [address] [place] [address] Care Team Providers Care Project Developer Name Role Phone Zulema Golden Primary Care Provider [phone] Abad Mccann MD Unavailable [phone] Allergies Active Allergy Reactions Criticality Noted Date Comments Gabapentin Other (See Comments) 08/22/2017 Hypotension and fever per patient Gabapentin Fever High 10/29/2020 Guanfacine Other (See Comments) 10/29/2020 Hypotension Guanfacine Other (See Comments) ,GI Intolerance/Nausea/Vomit ing Low 01/28/2018 Low blood pressure, dizziness Medications Medication Sig Dispensed Refills Start Date End Date Status levothyroxine (SYNTHROID) 150 MCG tabletIndications:Hypo thyroidism Take 150 mcg by mouth daily on an empty stomach Indications: Hypothyroidism. Active norethindrone-ethinyl estradiol (ORTHO-NOVUM 1-35 TAB,NORTREL 1-35 TAB) 1-35 MG-MCG per tabletIndications:Dysm enorrhea Take 1 tablet by mouth daily. Active albuterol (PROVENTIL HFA; VENTOLIN HFA) 108 (90 Base) MCG/ACT inhalerIndications:Ast hma Inhale 2 puffs 4 times daily (every 6 hours) as needed. Active traZODone (DESYREL) 100 MG tabletIndications:Inso mnia Take 100 mg by mouth nightly. Active fluticasone-vilanterol (BREO ELLIPTA) 100-25 MCG/INH inhalerIndications:Ast hma Inhale 1 puff daily. Active methylphenidate (RITALIN LA) 40 MG 24 hr capsule Take 40 mg by mouth every morning. Active ferrous sulfate 325 (65 FE) MG tablet take1 tablet by mouth daily 11 01/02/2018 Active lithium carbonate 300 MG IR capsule TK 2 CS PO QD IN THE EVENING 0 03/04/2018 Active methylphenidate (RITALIN LA) 40 MG 24 hr capsule 10/21/2020 Active levothyroxine (SYNTHROID, LEVOTHROID) 150 MCG tablet 08/21/2020 Active ARIPiprazole (ABILIFY) 5 MG tablet 08/22/2020 Active escitalopram (LEXAPRO) 20 MG tablet Take 20 mg by mouth daily. Active Albuterol Sulfate (VENTOLIN HFA IN) Inhale. Active fluticasone-vilanterol (BREO ELLIPTA) 100-25 MCG/INH inhaler Inhale 1 puff daily. 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 12/17/2017 Overview (12/17/2017): Added automatically from request for surgery [id number] Schizoaffective disorder, depressive type 2017 Resolved Problems Problem Noted Date Diagnosed Date Resolved Date Schizoaffective disorder, bipolar type 01/10/2017 01/10/2017 Gender dysphoria in adult 01/10/2017 Family History Medical History Relation Name Comments Anxiety disorder Brother Bipolar disorder Maternal Grandmother Breast cancer Mother Depression Paternal Aunt Depression Paternal Grandmother Anxiety disorder Sister Relation Name Status Comments Brother Maternal Grandmother Mother Paternal Aunt Paternal Grandmother Sister Social History Tobacco Use Types Packs/Day Years Used Date Smoking Tobacco: Former Smokeless Tobacco: Never Alcohol Use Standard Drinks/Week Comments Yes 0 (1 standard drink = 0.6 oz pur e alcohol) binge drink twice a month Sex and Gender Information Value Date Recorded Sex Assigned at Female 06/22/2023 1:10 AM EDT Gender Identity Gender fluid 12/02/2022 10:43 PM EST Sexual Orientation Bisexual 12/02/2022 10 :43 PM EST Sexual Orientation Pansexual 12/02/2022 10 :43 PM EST Last Filed Vital Signs Vital Sign Reading Time Taken Comments Blood Pressure 138/93 10/29/2020 1:04 PM EST Pulse 88 10/29/2020 1:04 PM EST Temperature 37.2 ??C (98.9 ??F) 10/29/2020 1:04 PM ES T Respiratory Rate 18 02/24/2018 10:41 AM EDT Oxygen Saturation 99% 10/29/2020 1:04 PM EST Inhaled Oxygen Concentration - - Weight 103 kg (226 lb) 03/06/2018 3:03 PM EDT Height 162.6 cm (5' 4 ) 03/06/2018 3:03 PM EDT Body Mass Index 38.79 03/06/2018 3:03 PM EDT Plan of Treatment Health Maintenance Due Date Last Done Comments Hepatitis C Virus Screening 1998 HIV Screening 2011 HPV Vaccines (1 - 3-dose series) 2013 DTaP/Tdap/Td Vaccines (1 - Tdap) 2017 Hepatitis B Vaccines (1 of 3 - 19+ 3-dose series) 2017 Pap Smear (Ages 21-65) 2019 Influenza Vaccine 05/20/2024 07/23/2022, , 07/06/2020, Additional history exists COVID-19 Vaccine ( - 2023- season) 2024 02/22/2021, 01/31/2021 Pneumococcal Vaccine: Pediatric (0-5 Years) and At-Risk Patients (6 to 49 Years) Aged Out No longer eligible based on patient's age to complete this topic Advance Directives * Full Code (Latest Code Status on File) Date Activated Date Inactivated Comments 01/29/2018 10:14 AM 02/23/2018 12:09 PM Question Answer Comments Decision Thoroughly Discussed with: Patient * Full Code Date Activated Date Inactivated Comments 11/12/2017 1:13 PM 01/29/2018 9:20 AM * Full Code Date Activated Date Inactivated Comments 01/10/2017 12:34 PM 01/13/2017 6:32 PM Care Teams Project Developer Relationship Specialty Start Date End Date Zulema Golden [address] [place] [id number] PCP - General Internal Medicine 10/29/20 Abad Mccann MD Romario Ochoa [address] [place] [id number] Family Medicine 10/29/20
--- OUTSIDE RECORDS SUMMARY | 2025-01-06 14:00 | XMS_ITS | Clinical Summary ---
Author Organization [facility] Address [address] [place] [address] Care Team Providers Care Doctor Of Medicine Name Role Phone Zulema Golden Primary Care Provider Zulema Golden Unavailable [phone] Allergies Active Allergy Reactions Criticality Noted Date Comments Gabapentin 02/26/2019 [facility] Comment: [id number]: fever Guanfacine Hcl Er 02/26/2019 [facility] Comment: [id number]: hypotensive Medications Escitalopram Oxalate (LEXAPRO) 20 MG tablet TAKE 1 TABLET BY MOUTH EVERY DAY 30 0 9 Active Blood Glucose Monitoring Suppl (Accu-Chek Guide) w/Device Kit USE DIRECTED. 0 3 Active Amphetamine-Dextroa mphetamine (ADDERALL , 7.5MG,) 7.5 MG tablet Take 7.5 mg by mouth 1 (one) time each day. Active Levothyroxine Sodium (SYNTHROID, LEVOTHROID) 175 MCG tabletIndications:H ypothyroidism, unspecified type TAKE 1 TABLET (175 MCG TOTAL) BY MOUTH EVERY DAY. 90 tablet 2 4 Active Lisinopril (PRINIVIL,ZESTRIL) 10 MG tabletIndications:P rimary hypertension Take one tablet (10 mg total) by mouth 1 (one) time each day. 90 tablet 2 4 08/22/20 25 Active Rosuvastatin Calcium (Crestor) 10 MG tabletIndications:M ixed hyperlipidemia Take one tablet (10 mg total) by mouth 1 (one) time each day. 90 tablet 2 4 06/10/20 25 Active Albuterol (Ventolin HFA) 90 mcg/ACT inhaler INHALE 1 TO 2 PUFFS BY MOUTH FOUR TIMES DAILY NEEDED. 18 each 4 Active Active Problems Problem Noted Date Diagnosed Date Mixed hyperlipidemia 01/16/2024 Overview (01/16/2024): 01/16/2024 Start Rosuvastatin 10mg daily repeat lipids 3 months Primary hypertension 01/16/2024 Overview (01/16/2024): 01/16/2024 BP elevated, start Lisinopril 10mg daily. Type 2 diabetes mellitus 03/27/2022 Overview (01/16/2024): 01/16/2024 A1C well controlled, pt mentions being off Metformin for over a month. Remain off Metformin and repeat A1C in 1 month. Will restart if needed. Raynaud's disease 12/07/2021 Rash 12/07/2021 Encounter for immunization 08/01/2021 Skin lesion 07/20/2021 PATTI (iron deficiency anemia) 02/26/2019 Schizoaffective disorder 02/26/2019 Anemia 02/26/2019 Insomnia 02/26/2019 PTSD (post-traumatic stress disorder) 02/26/2019 Overview (11/23/2023): Transitioned From: Depression Anxiety 02/26/2019 ADD (attention deficit disorder) 02/26/2019 Asthma 02/26/2019 Transgender 02/26/2019 Obesity 02/26/2019 Overview (01/16/2024): 01/16/2024 weight loss encouraged Hypothyroidism 02/26/2019 Overview (01/16/2024): 01/16/2024 Elevated TSH with recent labs- pt was off Levothyroxine which has since been restarted. Pt will repeat TSH in 1 month and we will adjust dose as needed. Immunizations Name Administration Dates Next Due COVID-19, mRNA (Pfizer Pre F all 2022) Monovalent, 30 mcg/0.3 ml 02/22/2021,01/31/2021 Hep A-Hep B (Twinrix) 11/19/2019,06/18/2019,04/21 Influenza (SEASONAL) - 10/01/2005 Influenza,injectable,MDCK, Prsrv Fr,Quad 021 Influenza,injectable,quad,Prsrv Fr 07/23/2022, PPD/TST (Tuberculin Skin Test) 05/18/2019 Tdap 02/26/2019 Family History Medical History Relation Name Comments Diabetes Father diabetes mellit us : Father Lipid/Cholesterol Abnormality Father hyperlipidemia : Father Thyroid Disorder Father FH: hypothy roidism : Father Lipid/Cholesterol Abnormality Mother Hypertriglyceridemia : Mother Heart Disorder Other congestive he art failure : Grandparent Alcohol/Drug Sibling substance abuse : Sibling Depression Sibling depression : Si nito Psych/Mental Health Sibling anxiety disorder : Sibling, Mother Relation Name Status Comments Father Mother Other Sibling Social History Tobacco Use Types Packs/Day Years Used Date Smoking Tobacco: Every Day Cigarettes Tobacco Cessation:Ready to Q uit: Not Asked; Counseling Given: Not Answered Comments:Smoking Status:Currently using tobacco PHQ-2 Answer Date Recorded PHQ-2 [...] Orientation Bisexual 12/24/2023 1: 55 PM EST Last Filed Vital Signs Vital Sign Reading Time Taken Comments Blood Pressure 132/94 01/16/2024 2:42 PM EDT Pulse 84 01/16/2024 2:42 PM EDT Temperature 36.6 ??C (97.9 ??F) 01/16/2024 2:42 PM ED T Respiratory Rate 18 01/16/2024 2:42 PM EDT Oxygen Saturation 98% 01/16/2024 2:42 PM EDT Inhaled Oxygen Concentration - - Weight 125 kg (276 lb 6.4 oz) 01/16/2024 2:42 PM EDT Height 165.1 cm (5' 5 ) 01/16/2024 2:42 PM EDT Body Mass Index 46 01/16/2024 2:42 PM EDT Plan of Treatment Health Maintenance Due Date Last Done Comments HPV Vaccine (1 - 3-dose series) 2013 Pap Smear 2014 Eye/Retina Exam 02/22/2016 Pneumococcal (1 of 2 - PCV) 2017 COVID-19 Vaccine ( season) 2024 02/22/2021, 01/31/2021 Influenza (#1) 2024 07/23/2022, 1010/2020, 07/06/2020, Additional history exists HA1C 08/17/2024 02/16/2024, 03/0 04/2024, 03/25/2022, Additional history exists GFR 12/24/2024 12/25/2023, 09/0 01/2022, 03/25/2022, Additional history exists LDL Cholesterol 12/24/2024 12/25/2023, 06/0 03/2022, 03/25/2022, Additional history exists Microalbumin 12/24/2024 12/25/2023 DTaP/Tdap/Td (2 - Td or Tdap) 02/26/2029 02/26/2019 Zoster (Shingrix) (1 of 2) 02/22/2048 PPD Discontinued 05/20/2019, 05/18/2019 Hep A Aged Out 11/19/2019, 05/22, 05/18/2019 No longer eligible based on patient's age to complete this topic Hep B Completed 11/19/2019, 05/22, 05/18/2019 Hepatitis C Screening Completed 12/07/2021 Physical Discontinued 03/19/2022, 02/26/2019 Hib Aged Out No longer eligi ble based on patient's age to complete this topic Meningococcal ACWY Aged Out No longer eligible based on patient's age to complete this topic Goals Goal Patient Goal Type Associated Problems Recent Progress Patient-Stated? Author Blood Pressure < 140/90 Blood Pressure 132/94(01/15 2:42 PM EDT) Zulema Daniel PA Note: Above is your goal for [...] at . Any insurance accepted. Quit smoking resources-http://makesmoSolace Therapeuticstory.org HEMOGLOBIN A1C % < 7 Result Component 5.8(02/16/20 2:58 PM EDT) Alisha Hernández MA Note: [...] fasting blood sugar below 120 is ideal. Procedures * Due to [place] [employer] law, this organization might not be sharing negative HIV tests. Procedure Name Priority Date/Time Associated Diagnosis Comments HEMOGLOBIN A1C Routine 02/16/2024 2:58 PM EDT Type 2 diabetes mellitus without complication, without long-term current use of insulin (HCC) COMPREHENSIVE METABOLIC PANEL WITH GFR Routine 12/25/2023 2:18 PM EST Type 2 diabetes mellitus without complications ALBUMIN (MICROALBUMIN), RANDOM URINE, WITH CREATININE Routine 12/25/2023 2:18 PM EST Type 2 diabetes mellitus without complications LIPID PANEL WITH REFLEX TO DIRECT LDL Routine 12/25/2023 2:18 PM EST Type 2 diabetes mellitus without complications HEPATITIS C ANTIBODY W/ REFLEX TO RNA, QN, RT PCR Routine 12/07/2021 12:08 PM EST PPD SKIN TEST Routine 05/20/2019 5:22 PM EDT from Last 3 Months or Most Recently Relevant to Health Maintenance Results * Due to [place] AutoAlert law, this organization might not be sharing negative HIV tests. * HEMOGLOBIN A1C (02/16/2024 2:58 PM EDT) Hemoglobin A1C 5.8 4.3 - 6.1 %A1C [facility] Comment: 5.7-6.4 Increased Risk of Diabetes >6.4 Consistent with Diabetes The [place] [employer] recommends a goal of less than 7% for diabetic patients. 02/16/2024 2:58 PM EDT 02/16/2024 9:53 PM EDT Narrative [facility] - 02/16/2024 10:22 PM EDT Track Order?->No Release result to patient->Immediate FASTING: NO Testing Performed at: [facility], [address] [place] [address], , Rn Case Management: Sherice Auguste MD CL#[id number] [facility] Final Resul t Performing Organization Address [facility] de Phone Number [facility] [address] [place] [address], * ALBUMIN (MICROALBUMIN), RANDOM URINE, WITH CREATININE (12/25/2023 2:18 PM EST) Albumin (Urine) 8 0 - 23 mg/L [facility] Creatinine (Urine) 168 60 - 200 mg/dL [facility] 12/25/2023 2:18 PM EST 12/25/2023 6:07 PM EST Narrative [facility] - 12/25/2023 9:26 PM EST Microalbumin<12.0, Alb/Creat Ratio Invalid Testing Performed at: [facility], [address] [place] [address], , Rn Case Management: Sherice Auguste MD CL#[id number] [facility] Final Resul t Performing Organization Address [facility] Phone Number [facility] [address] [place] [address] * (ABNORMAL) LIPID PANEL WITH REFLEX TO DIRECT LDL (12/25/2023 2:18 PM EST) Cholesterol 233(H) 0 - 199 mg/dL [facility] Triglyceride 204(H) 0 - 150 mg/dL [facility] VLDL Cholesterol 41(H) 5 - 40 mg/dL [facility] HDL Cholesterol 44(L) 50 - 80 mg/dL [facility] LDL Cholesterol 148(H) 0 - 100 mg/dL [facility] Cholesterol Non-HDL 189(H) 0 - 130 mg/dl [facility] CHOL/HDL Ratio 5.2 [facility] 12/25/2023 2:18 PM EST 12/25/2023 6:07 PM EST Narrative [facility] - 12/25/2023 6:54 PM EST FASTING: NO Fasting reference interval. ??[employer] Lipid testing results require a 12 hour fasting specimen. ??Use caution when interpreting non-fasting cholesterol and triglyceride results. Testing Performed at: [facility], [address], [place] [address], , Rn Case Management: Sherice Auguste MD CL#[id number] us [facility] Final Resul t [facility] [address] [place] [address], * (ABNORMAL) COMPREHENSIVE METABOLIC PANEL WITH GFR (12/25/2023 2:18 PM EST) Glucose 76 65 - 99 mg/dL [facility] Comment:Fasting Reference In terval Urea Nitrogen Blood (BUN) 12 6 - 20 mg/dL [facility] Creatinine 0.9 0.4 - 1.1 mg/dL [facility] GFR 121 >=60 [facility] Comment: Units of measure for estimated Glomular Filtration Rate: ??mL/min/1.73m2. eGFR calculation is only valid for adults 18-85 years of age. Stages of Chronic Kidney Disease Stage ? GFR ??3 ? 30-59 ??4 ? 15-29 ??5 ? <15 Sodium 140 133 - 145 mmol/L [facility] Potassium 4.7 3.3 - 5.3 mmol/L [facility] Chloride 96 96 - 108 mmol/L [facility] Bicarbonate 29 22 - 32 mmol/L [facility] Anion gap 3 15 [facility] Calcium 9.3 8.6 - 10.5 mg/dL [facility] Protein Total (Serum) 7.5 6.2 - 8.2 g/dL [facility] Albumin 4.6 3.5 - 5.2 g/dl [facility] Alkaline phosphatase 108(H) 35 - 105 U/L [facility] AST (SGOT) 20 4 - 32 U/L [facility] ALT (SGPT) 20 4 - 33 U/L [facility] Bilirubin Total 0.3 0.1 - 1.0 mg/dL [facility] Globulin 2.9 1.4 - 4.8 g/dl [facility] Albumin/Globulin 2 1 - 3 [facility] Osmolality 269 253 - 285 mOsm/kg [facility] BUN/Creatinine Ratio 13 6 - 25 [facility] 12/25/2023 2:18 PM EST 12/25/2023 6:07 PM EST Narrative [facility] - 12/25/2023 8:08 PM EST FASTING: NO Testing Performed at: [facility], [address] [place] [address], , Rn Case Management: Sherice Auguste MD CL#[id number] [facility] Final Resul t [facility] [address] [place] [address]. [place] [address], * HEPATITIS C ANTIBODY W/ REFLEX TO RNA, QN, RT PCR (12/07/2021 12:08 PM EST) Hepatitis C virus Ab NON-REACT TAZ NON-REACT TAZ [facility] Hepatitis C virus Ab 0.07 <1.00 [facility] Comment:Antibodies to HCV we re not detected. NOTE: This does not entirely exclude the possibility of exposure to HCV since antibody production may lag infection. If there is a high suspicion of HCV infection HCV RNA testing may be of diagnostic value. 12/07/2021 12:0 8 PM EST Narrative [facility] - 12/07/2021 7:33 PM EST Testing Performed at: [facility], [address] [place], [place] [address], , Rn Case Management: Sherice Auguste MD CL#[id number] [facility] Final Resul t Performing Organization Address [facility]/ZIP Co de Phone Number [facility] * PPD SKIN TEST (05/20/2019 5:22 PM EDT) # OF MM INDURATION (NOT REDNESS) 0 [facility] 05/20/2019 5:22 PM EDT Jann Hastings MD PROCEDURES Final Result Performing Organization Address [facility] Co de Phone Number [facility] from Last 3 Months or Most Recently Relevant to Health Maintenance Insurance [facility] P[facility] Care Teams Doctor Of Medicine Relationship Specialty Start Date End Date Zulema Golden PA [address] [place] [address] PCP - General 05/26/23 Zulema Golden PA [address] [facility] [address] [place] [address] PCP - Backup PCP Internal Medicine 11/20/23
--- OUTSIDE RECORDS SUMMARY | 2025-01-06 14:00 | XMS_ITS | Encounter Summary ---
Author Organization [facility] Address [address] [place] [address] Care Team Providers Care Field Ring Assembler Name Role Phone Abad Mccann MD Primary Care Provider [phone] Zulema Golden Primary Care Provider [phone] Abad Mccann MD Unavailable [phone] Encounter Details Date Type Department Care Team (Late st Contact Info) Description 12/11/2017 Scanned Document [facility] Breast Care & Surgery [place] [address] [facility] [address] [facility] [address] [place] [address] Sarah Sherman MD [address] [facility] [address] [place] [address] Social History Tobacco Use Types Packs/Day Years Used Date Smoking Tobacco: Some Days Smokeless Tobacco: Never Alcohol Use Standard Drinks/Week Comments Yes 0 (1 standard drink = 0.6 oz pur e alcohol) Sex and Gender Information Value Date Recorded [...] on filedocumented in this encounter Care Teams Field Ring Assembler Relationship Specialty Start Date End Date Abad Mccann MD [address] [place] [address] PCP - General Family Medicine 10/09/16 10/28/20 Zulema Golden [address] [place] [address] PCP - General Internal Medicine 10/29/20 Abad Mccann MD Romario Dodd [address] [address] Family Medicine 10/29/20 documented as of this encounter
--- OUTSIDE RECORDS SUMMARY | 2025-01-06 14:00 | XMS_ITS | Encounter Summary ---
Author Organization [facility] Address [address] [place] [address] Care Team Providers Care Specimen Accessioner Name Role Phone Abad Mccann MD Primary Care Provider Zulema Golden Primary Care Provider [phone] Abad Mccann MD Unavailable [phone] Encounter Details Date Type Department Care Team (Late st Contact Info) Description 09/24/2017 Scanned Document [facility] Breast Care & Surgery [place] [address] [facility] [address] [place] [address] Sarah Sherman MD [address] [facility] [address] [place] [address] Social History Tobacco Use Types Packs/Day Years [...] on filedocumented in this encounter Care Teams Specimen Accessioner Relationship Specialty Start Date End Date Abad Mccann MD Carmina Ochoa [address] [place] [address] PCP - General Family Medicine 10/09/16 10/28/20 Zulema Golden [address] [place] [address] [address] [place] [address] PCP - General Internal Medicine 10/29/20 Abad Mccann MD [address] [place] [address] [address] Family Medicine 10/29/20 documented as of this encounter
--- OUTSIDE RECORDS SUMMARY | 2025-01-06 14:00 | XMS_ITS | Clinical Summary ---
Author Organization [facility] Address [address] [place] [address] Care Team Providers Care Electronic Organ Mechanic Name Role Phone Zulema Golden Primary Care Provider [phone] Surgical History Surgery Date Site/Laterality Comments MASTECTOMY PROCEDURE:MASTECTOMY Medical History Medical History Date Comments Hypothyroidism DX:Hypothyroidis m Anemia DX:Anemia Asthma DX:Asthma Family History Medical History Relation Name Comments Hypertension Mother Relation Name Status Comments Father Alive Mother Alive Social History Tobacco Use Types Packs/Day Years Used Date Smoking Tobacco: Never Assessed Sex and Gender Information Value Date Recorded Sex Assigned at Not on file Legal Sex Male 2:39 AM EST Gender Identity Not on file Sexual Orientation Not on file Obstetrics History Last Filed Vital Signs Vital Sign Reading Time Taken Comments Blood Pressure 129/95 01/23/2022 9:15 AM EDT Pulse 84 01/23/2022 9:15 AM EDT Temperature - - Respiratory Rate - - Oxygen Saturation - - Inhaled Oxygen Concentration - - Weight 137 kg (302 lb) 01/23/2022 9:15 AM EDT Height 165.1 cm (5' 5 ) 01/23/2022 9:15 AM EDT Body Mass Index 50.26 01/23/2022 9:15 AM EDT Plan of Treatment Health Maintenance Due Date Last Done Comments HPV Vaccines (1 - Male 3-dos e series) 2013 DTaP,Tdap,and Td Vaccines (1 - Tdap) 2017 Hepatitis B Vaccines (1 of 3 - 19+ 3-dose series) 2017 Depression Screening 09/22/2022 HIV Screening 09/22/2022 Hepatitis C Screening 09/22/2022 Social Influencers of Health Screening 09/22/2022 COVID-19 Vaccine (3 - 2023-2 5 season) 2024 02/22/2021, 01/31/2021 Influenza Vaccine (#1) 2024 HIB Vaccines Aged Out No longer eligi ble based on patient's age to complete this topic Hepatitis A Vaccines Aged Out No long er eligible based on patient's age to complete this topic IPV Vaccines Aged Out No longer eligi ble based on patient's age to complete this topic MMR Vaccines Aged Out No longer eligi ble based on patient's age to complete this topic Meningococcal ACWY Vaccine Aged Out N o longer eligible based on patient's age to complete this topic Meningococcal B Vacine Aged Out No lo nger eligible based on patient's age to complete this topic Pneumococcal Vaccine: Pediatrics (0 to 5 Years) and At-Risk Patients (6 to 64 Years) Aged Out No longer eligible b ased on patient's age to complete this topic RSV Immunization Patients Under 20 months Aged Out No longer eligible b ased on patient's age to complete this topic Varicella Vaccines Aged Out No longer eligible based on patient's age to complete this topic Care Teams Electronic Organ Mechanic Relationship Specialty Start Date End Date Zulema Golden PA [address] [place] [id number] PCP - General Architectural Examiner 01/31/21
== END 2025-01-06 12:17 | disposition home or self-care (01) ==
LOC: HO.HMCFM 11:35
PROVIDERS: PCP Physician Assistant; Visit Provider Physician Assistant
DX: I10 Essential (primary) hypertension (principal); E78.5 Hyperlipidemia, unspecified; K21.9 Gastro-esophageal reflux disease without esophagitis

== ENCOUNTER → 2025-01-06 11:34 | Outpatient (BNVA) | payer OTHER, SELFPAY | PROVIDERS: PCP Physician Assistant; Visit Provider Physician Assistant | DX: I10 Essential (primary) hypertension (principal); E78.5 Hyperlipidemia, unspecified; K21.9 Gastro-esophageal reflux disease without esophagitis | CPT/HCPCS: 96127; 99202 ==

== ENCOUNTER 2025-01-25 07:50 | Outpatient (REF) | payer OTHER, SELFPAY ==
--- OUTSIDE RECORDS SUMMARY | 2025-01-25 07:55 | XMS_ITS | Encounter Summary ---
Author Organization [facility] Address [address] [place] [address] Care Team Providers Care Fixture Maker Name Role Phone Abad Mccann MD Primary Care Provider Zulema Golden Primary Care Provider [phone] Abad Mccann MD Unavailable [phone] Encounter Details Date Type Department Care Team (Late st Contact Info) Description 09/24/2017 Scanned Document [facility] Breast Care & Surgery [place] [address] [facility] [address] [place] [address] Sarah Sherman MD [address] [facility] [address] [place] [address] Social History Tobacco Use Types Packs/Day Years [...] on filedocumented in this encounter Care Teams Fixture Maker Relationship Specialty Start Date End Date Abad Mccann MD Carmina Ochoa [address] [place] [address] PCP - General Family Medicine 10/09/16 10/28/20 Zulema Golden [address] [place] [address] [address] [place] [address] PCP - General Internal Medicine 10/29/20 Aabd Mccann MD [address] [place] [address] [address] Family Medicine 10/29/20 documented as of this encounter
--- OUTSIDE RECORDS SUMMARY | 2025-01-25 07:55 | XMS_ITS | Encounter Summary ---
Author Organization [facility] Address [address] [place] [address] Care Team Providers Care Vice President Industrial Relations Name Role Phone Zulema Golden Primary Care Provider [phone] Zulema Golden Unavailable [phone] Reason for Visit * Reason Comments Results Encounter Details Date Type Department Care Team (Late st Contact Info) Description 12/26/2023 Telephone [facility] Primary Care [address] [place] [id number] Zulema Golden PA [address] [facility] [address] [place] [address] Results Social History Tobacco Use Types Packs/Day [...] would like any potential medications sent to [facility] today as [facility]. Thank you documented in this encounter Plan of Treatment Not on file documented as of this encounter Visit Diagnoses Not on filedocumented in this encounter Care Teams Vice President Industrial Relations Relationship Specialty Start Date End Date Zulema Golden PA [address] [facility] [address] [place] [address] PCP - General 05/26/23 Zulema Golden PA [address] [address] PCP - Backup PCP Internal Medicine 11/20/23 documented as of this encounter
--- OUTSIDE RECORDS SUMMARY | 2025-01-25 07:55 | XMS_ITS | Clinical Summary ---
Author Organization [facility] Address [address] [place] [address] Care Team Providers Care Project Financial Analyst Name Role Phone Zulema Golden Primary Care Provider [phone] Surgical History Surgery Date Site/Laterality Comments MASTECTOMY [...] age to complete this topic Meningococcal B Vaccine Aged Out No l onger eligible based on patient's age to complete [...] age to complete this topic Care Teams Project Financial Analyst Relationship Specialty Start Date End Date Zulema Golden PA [address] [place] [phone] PCP - General Speedometer Inspector 01/31/21
--- OUTSIDE RECORDS SUMMARY | 2025-01-25 07:55 | XMS_ITS | Encounter Summary ---
Author Organization [facility] Address [address] [place] [address] Care Team Providers Care Marketing Automation Manager Name Role Phone Abad Mccann MD Primary Care Provider Zulema Golden Primary Care Provider [phone] Abad Mccann MD Unavailable [phone] Encounter Details Date Type Department Care Team (Late st Contact Info) Description 12/11/2017 Scanned Document [facility] Breast Care & Surgery [place] [address] [facility] [address] [place] [address] Sarah Sherman MD [address] [facility] [address] [place] [address] Social History Tobacco Use Types Packs/Day Years [...] on filedocumented in this encounter Care Teams Marketing Automation Manager Relationship Specialty Start Date End Date Abad Mccann MD [address] [place] [address] PCP - General Family Medicine 10/09/16 10/28/20 Zulema Golden [address] [place] [address] PCP - General Internal Medicine 10/29/20 Abad Mccann MD Romario Dodd [address] [address] Family Medicine 10/29/20 documented as of this encounter
--- OUTSIDE RECORDS SUMMARY | 2025-01-25 07:55 | XMS_ITS | Clinical Summary ---
Author Organization [facility] Address [address] [place] [address] Care Team Providers Care Preparation Center Coordinator Name Role Phone Zulema Golden Primary Care [...] Gender dysphoria 12/30/2019 Schizoaffective disorder, depressive type ([facility]) 11/12/2017 Immunizations Immunization Administration Dates Next [...] Adult 2017 Pap Smear 2019 COVID-19 Vaccine ( - 2023-2 5 season) 2024 02/22/2021, 01/31/2021 Influenza Vaccine (Season Ended) 2025 HIB Vaccines Aged Out No longer eligi [...] to complete this topic Insurance MEDICAID [facility] Care Teams Preparation Center Coordinator Relationship Specialty Start Date End Date Zulema Golden PA [address] [facility] [address] [place] [address] PCP - General Internal Medicine 12/30/19
--- OUTSIDE RECORDS SUMMARY | 2025-01-25 07:55 | XMS_ITS | Encounter Summary ---
Author Organization [employer] Address [address] [place] [address] Care Team Providers Care Shoulder Puncher Name Role Phone Zulema Golden Primary Care Provider Encounter Details Date Type Department Care Team (Latest Contact Info) Description 05/05/2020 Scanned Document [employer] [place] [employer] [address] [place] [address] System, Provider Not In 12/31/2019 [facility] Prior [...] on filedocumented in this encounter Care Teams Shoulder Puncher Relationship Specialty Start Date End Date Zulema Golden PA [address] [facility] [address] [place] [address] PCP - General Internal Medicine 12/30/19 documented as of this encounter
--- OUTSIDE RECORDS SUMMARY | 2025-01-25 07:55 | XMS_ITS | Encounter Summary ---
Author Organization [employer] Address [address] [place] [address] Care Team Providers Care Purchasing Officer Name Role Phone Zulema Golden Primary Care Provider Encounter Details Date Type Department Care Team (Latest Contact Info) Description 05/05/2020 Scanned Document [email or web address] Information Management [address] [place] [address] System, Provider Not In 12/31/2019 Endocrinology Review [...] on filedocumented in this encounter Care Teams Purchasing Officer Relationship Specialty Start Date End Date Zulema Golden PA [address] [facility] [address] [place] [address] PCP - General Internal Medicine 12/30/19 documented as of this encounter
--- OUTSIDE RECORDS SUMMARY | 2025-01-25 07:55 | XMS_ITS | Clinical Summary ---
Author Organization [facility] Address [address] [place] [address] Care Team Providers Care University Administrator Name Role Phone Zulema Golden Primary Care [...] age to complete this topic Care Teams University Administrator Relationship Specialty Start Date End Date Zulema Golden PA [address] [place] [address] PCP - General Cut In Station Operator 01/31/21
--- OUTSIDE RECORDS SUMMARY | 2025-01-25 07:55 | XMS_ITS | Data Portability ---
Author Organization [facility], [address] Address [address] [place] [address] Assessment No assessment recorded. Plan of Treatment Reminders Order Date Submit Date Provider Last Modified By Organization Details Last Modified Time Details Appointments None recorded. Lab streptococc us group A, culture, throat 2022 023 [place] [facility] ([facility], [address] [place] [address], [place], [address], 3 12:06:29 rapid strep group A, throat 2022 023 [email or web address] [facility], [address] [place] [address], [place], [address], 3 09:39:59 Referral otolaryngol ogist referral - Recurrent AOM and sinusitis for many years 2023 024 [email or web address] [facility], [address] [place], [address], 4 17:39:03 orthopedic surgeon referral 2023 024 [facility] Orthopedic Surgeon, [address], [facility] [address], [place], [address], 4 08:44:46 physical therapist referral 2023 024 [facility] - [place], [address] [place] [address], [address], 4 08:44:46 Procedures None recorded. Surgeries None recorded. Imaging None recorded. Medication Orders amoxicillin 875 mg-potassiu m clavulanate 125 mg tablet 2023 024 [facility], [address] [place], [address], 4 17:38:24 diclofenac sodium 75 mg tablet,nighat yed release 2023 024 [address], [address] [place], [address], 4 17:35:18 escitalopra m 20 mg tablet 2023 024 [facility], [address] [place], [address], 4 08:42:45 amoxicillin 875 mg-potassiu m clavulanate 125 mg tablet 2023 024 [facility], [address] [place], [address], 4 17:56:31 amoxicillin 875 mg tablet 2022 024 [id number], [address] [place], [address], 16:25:56 Patient TargetsNo targets recorded. Patient Instructions Encounter Date Encounter Id Patient Instructions Last Modified By Organization Details Last Modified Time 11/12/2022 [id number] sore throat: car e instructions [email or web address] Not available 11/12/2022 09:41:44 10/31/2023 [id number] ear infection (otitis media): care instructions Not available 10/31/2023 16:38:59 06/21/2024 [id number] knee pain or injury: care instructions Not available 06/21/2024 08:42:42 Reason for Referral Orthopedic Surgeon Referral for Injury of knee Referring Physician: Kaylie Baig, Urgent Care, Encounter Date: 06/21/2024 Physical Therapist Referral for Injury of knee Referring Physician: Kaylie Baig, Urgent Care, Encounter Date: 06/21/2024 Supervisor [employer] Referral fo r Chronic recurrent sinusitis Recurrent [...] p A). (CLSI ) Not Available [facility] ([facility]) [address] [facility], [place], [address], 11/14/2022 12:06:29 11/12/1911/12/2022 rapid strep group A, throa t Unknown Analyte Normal = Negati ve Not Available [address] [place] [address] [place], [address], 11/12/2022 09:39:47 11/12/1911/12/2022 rapid strep group A, throa t Unknown Analyte negati ve Not Available [address] [place] [address] [place], [address], 11/12/2022 09:39:47 Result Notes None recorded. Problems Name Problem SNOMED Code Status Onset Date Resolution Date Notes Provider Name and Address Organization Details Recorded Time Asthma 438214291 Active 2022 IRIS COUVERTIE R null, [place] - [facility] 3 09:00:21 Diabetes mellitus 12821126 Active 2022 IRIS COUVERTIE R null, PA - [facility] 3 09:00:29 Hypothyroidism 05022583 Active 2022 IRIS COUVERTIE R null, PA - [facility] 3 09:00:35 Nasal sinus problem 575531311 Active 2022 IRIS COUVERTIE R null, PA - [facility] 3 09:00:48 Attention deficit hyperactivity disorder 185537189 Active 2022 IRIS COUVERTIE R null, PA - [facility] 3 09:01:11 Problem Notes None recorded. Procedures Surgical History Date Name Laterality Status Provider Name and Address Organization Details Recorded Time 4 Cerumen Removal by Irrigation completed MARCELA Elias [address] [place], [place] [address], [address], PA - [facility] 05/10/2024 18:13:53 Imaging Results None recorded. Procedure Notes None recorded. Medical Equipment None Reported. Allergies Allergen ID Allergen Name Allergen Category Reaction Reaction Severity Criticality Documentation Date Start Date Code Code System Note Provider Name and Address Organization Details Recorded Time 643147 gabapenti n medicatio n Not available Not available Not available 11/12/2022 76367 RxNorm IRIS COUVERTIE R null, PA - [facility] 3 08:58:46 495972 guanfacin e medicatio n other Not available Not available 11/12/2022 69374 RxNorm IRIS COUVERTIE R null, PA - [...] % 98 % 83 /min 45.3 kg/m2 880697. 12 g 158 mm[Hg] 106 mm[Hg] 150 [...] Updated DateTime 3 165.1 cm 48.3 kg/m2 780050. 79 g 98.7 [degF] 18 /min 76 [...] Updated DateTime 4 165.1 cm 45.3 kg/m2 232417. 12 g 97.7 [degF] 18 /min 100 % 100 % 89 /min 0 135 mm[Hg] 83 mm[Hg] Melvinatamar GallegosNolan [place] - [facility] 4 17:55:01 Date Recorded Body height Body mass index (BMI) Body weight Oxygen saturation Oxygen saturation in Arterial blood by Pulse oximetry Pain severity - 0-10 verbal numeric rating [Score] - Reported Heart rate Respiratory rate Body temperature Systolic blood pressure Diastolic blood pressure Provider Name and Address Organization Details Last Updated DateTime 4 165.1 cm 45.3 kg/m2 410228. 12 g 100 % 100 % 6 77 /min 18 /min 97.2 [degF] 136 mm[Hg] 93 mm[Hg] Tamika Isma [place] [email or web address] 4 08:32:31 Date Recorded Body height Body mass index (BMI) Body weight Oxygen saturation Oxygen saturation in Arterial blood by Pulse oximetry Pain severity - 0-10 verbal numeric rating [Score] - Reported Heart rate Respiratory rate Body temperature Systolic blood pressure Diastolic blood pressure Provider Name and Address Organization Details Last Updated DateTime 4 165.1 cm 44.9 kg/m2 542193. 94 g 98 % 98 % 0 76 /min 18 /min 98.3 [degF] 136 mm[Hg] 85 mm[Hg] Susan Rosario [facility] 4 17:34:50 Social History Question Answer Notes LastModified by Organizat ion Details LastModified Time Tobacco Smoking Status Former Smoker Susan gerardo [place] - [facility] 10/07/2024 17:36:32 What Is Your Level Of Alcohol Consumption? None Information not available 11/12/2022 Are You Currently Employed? Yes Information not available 10/07/2024 Do You Or Have You Ever Used E-cigarettes Or Vape? Current User Of Electronic Cigarettes Information not available 10/07/2024 When Did You Quit Smoking? 1-5yearssincel kirby 07/2024 [email or web address] Information not available 10/07/2024 Have You Had A Flu Shot This Season? No [email or web address] Information not available 10/07/2024 If No, Would You Like A Flu Shot Today? No Information not available 10/07/2024 What Is Your Water Source? City Information not available 11/12/2022 What Is Your Heat Source? Gas Information not available 11/12/2022 Have You Had Direct Contact, Or Contact During Intimacy, With Monkeypox Rash, Scabs, Or Body Fluids From A Person With Monkeypox? No Information not available 11/12/2022 What Was The Date Of Your Most Recent Tobacco Screening? 10/07/2024 [email or web address] Information not available 10/07/2024 What Is Your Relationship Status? Domestic Partner [email or web address] Information not available 05/10/2024 Do You Or Have You Ever Used Smokeless Tobacco? Never Used Smokeless Tobacco [email or web address] Information not available 10/07/2024 Do You Use Any Illicit Or Recreational Drugs? No Information not available 11/12/2022 Have You Recently Traveled Abroad? No Information not available 11/12/2022 Do You Or Have You Ever Used Any Other Forms Of Tobacco Or Nicotine? Yes [email or web address] Information not available 10/07/2024 How Many Years Have You Used E-cigarettes Or Vape? 2023 [email or web address] Information not available 10/07/2024 Sex: Male Functional Status None recorded. Mental Status None recorded. Family History Relationship Description Onset Age of this Age Resolved Age Notes LastModified by Organization Details LastModified Time Father No current problems or disability Not available 09:01:14 Mother No current problems or disability Not available 09:01:14 Unspecified Relation Hypertensive disorder [email or web address] Not available 2023 16:31:11 Medical History No medical history recorded. Gynecological History Statement/Question Response Date of LMP 03/03/2024 Is there any chance of ? No LMP Definite Obstetrics History GPAL:G 0 P 0 0 0 0 Past Encounters Encounter ID Performer Location Encounter Start Date Encounter Closed Date Diagnosis/Indication Diagnosis SNOMED-CT Code Diagnosis ICD10 Code Diagnosis Note [id number] Jami Carr MD [address] [place] [address] 11/12/2022 08:46:40 11/12/2022 09:44:02 Acute pharyngitis 943388443 J02.9 [id number] [facility]A Elias [address] [address] [place] [address] 10/31/2023 16:12:06 10/31/2023 17:24:17 Acute left otitis media 611655681 H66.92 An ear infection may start with [...] take the full course of antibiotic s. [id number] MARCELA Elias [address] [place] [address] 05/10/2024 17:49:30 05/10/2024 18:17:54 Impacted cerumen in right ear 5617346551 731988 H61.21 Based on your presentati on and [...] neck7. Stiff neck. Thank you for using [employer] today, please feel free to contact our office if you have any questions or concerns. [id number] MARCELA Elias [address] [facility] [address] [place] [address] 06/21/2024 08:20:24 06/21/2024 08:44:45 Injury of knee 560339839 S89.92XA Based on your presentati on and [...] Redness5. Calf Swelling Thank you for using [employer] , please contact our office if you have any questions or concerns. Anxiety 40245360 F41.9 We are filling your medication as a 1 time courtesy refill. We are unable to refill in the future. Please ensure you have follow up with your PCP for future medication management [id number] MARCELA Elias [address] [facility] [address] [place] [address] 10/07/2024 17:22:07 10/07/2024 17:39:02 Acute left otitis media 949846032 H66.92 An ear infection may start with [...] of antibiotic s. Chronic re current sinusitis 396772296 J32.9 Health Concerns Section Related Observation LastModified by Organization Detai ls LastModified Time None Recorded Concern Status LastModified by Organization Details LastModified Time None Recorded Advance Directives Directive None Recorded Payers Encounter Date Sequence Insurance Name Policy Number Policy Qiu Covered Member ID Qiu Member ID Guarantor Name 11/12/2022 1 [place] [id number] Lionel Sheldon Pleasent [id number] Fawad Reed 10/31/2023 1 [place] [id number] Lionel Sheldon Pleasent [id number] Fawad Reed 05/10/2024 2 [place] [facility] Fawad Reed [id number] Fawad Reed 05/10/2024 1 [facility] [employer] [facility] PLAN (MEDICAID HMO) PABLO Reed [id number] Fawad Reed 06/21/2024 2 [place] [facility] Fawad Reed [id number] Fawad Reed 06/21/2024 1 [facility] [employer] [facility] PLAN (MEDICAID HMO) PABLO Reed [id number] Fawad Reed 10/07/2024 2 [place] [facility] Fawad Reed [id number] Fawad Reed 10/07/2024 1 [facility] [employer] [facility] PLAN (MEDICAID HMO) PABLO Reed [id number] Fawad Reed Notes Date Note Type Note Provider Name and Address Organization Details Recorded Time 11/12/2022 text/html Sore throatRepor noe bypatient.Location:t hroat Severity:moderate Quality:sharp Onset/Timin weeks Associated Symptoms:no cough; no sputum production; no shortness of breath; no wheezing; no sinus pain; no vomiting; no nausea; No hoarseness Context:no sick contacts; no foreign travel; non-smoker Jami Carr MD [address] [place], [address], [place] - [facility] 11/12/2022 10:20:47 05/10/2024 text/html 24 y/o pt here w ith R ear feeling clogged for the past 3 days [place], [address], [place] - [facility] 05/10/2024 18:14:11 06/21/2024 text/html 24 y/o female he re with L knee pain after it may have subluxed last night. She has had issues with it for several years, and has not had evaluation or treatment.Squatted down last night and started having worsening pain. MARCELA Elias [address] [place], [address], [place] - [facility] 06/21/2024 09:02:49 10/07/2024 text/html 24 y/o pt with several days of L ear discomfort and feeling clogged. h/o recurrent AOM and sinus issues[place], [address], [place] - [facility] 10/07/2024 17:46:52 OBGyn Episode No OBEpisode recorded.
--- OUTSIDE RECORDS SUMMARY | 2025-01-25 07:55 | XMS_ITS | Clinical Summary ---
Author Organization [facility] Address [address] [place] [address] Care Team Providers Care Canal Boat Operator Name Role Phone Zulema Golden Primary Care Provider Zulema Golden Unavailable [phone] Allergies Active Allergy Reactions Criticality Noted Date Comments Gabapentin 02/26/2019 [facility] [employer] Comment: [id number]: fever Guanfacine Hcl Er 02/26/2019 [facility] [employer] Comment: [id number]: hypotensive Medications Escitalopram Oxalate (LEXAPRO) 20 MG [...] at . Any insurance accepted. Quit smoking resources-[email or web address].org HEMOGLOBIN A1C % < 7 Result Component [...] 120 is ideal. Procedures * Due to [place] law, this organization might not be sharing negative HIV tests. Procedure Name Priority Date/Time Associated Diagnosis Comments HEMOGLOBIN A1C Routine 02/16/2024 2:58 PM EDT Type 2 diabetes mellitus without complication, without long-term current use of insulin COMPREHENSIVE METABOLIC PANEL WITH GFR Routine 12/25/2023 [...] to Health Maintenance Results * Due to [place] law, this organization might not be sharing negative HIV tests. * HEMOGLOBIN A1C (02/16/2024 2:58 PM EDT) Hemoglobin A1C 5.8 4.3 - 6.1 %A1C [facility] Comment: 5.7-6.4 Increased Risk of Diabetes >6.4 Consistent with Diabetes The [place] [employer] recommends a goal of less than 7% for diabetic patients. 02/16/2024 2:58 PM EDT 02/16/2024 9:53 PM EDT Narrative [facility] - 02/16/2024 10:22 PM EDT Track Order?->No Release result to patient->Immediate FASTING: NO Testing Performed at: [facility], [address] [place] [address], , Client Service Executive: Sherice Auguste MD CL#[id number] [facility] Final Resul t Performing Organization Address [facility] Phone Number [facility] [address] [place] [address], * ALBUMIN (MICROALBUMIN), RANDOM URINE, WITH CREATININE (12/25/2023 2:18 PM EST) Albumin (Urine) 8 0 - 23 mg/L [facility] Creatinine (Urine) 168 60 - 200 mg/dL [facility] 12/25/2023 2:18 PM EST 12/25/2023 6:07 PM EST Narrative [facility] - 12/25/2023 9:26 PM EST Microalbumin<12.0, Alb/Creat Ratio Invalid Testing Performed at: [facility], [address] [place] [address], , Client Service Executive: Sherice Auguste MD CL#[id number] [facility] Final Resul t Performing Organization Address [facility] Phone Number [facility] [address] [place] [address] * (ABNORMAL) LIPID PANEL WITH REFLEX TO DIRECT LDL (12/25/2023 2:18 PM EST) Cholesterol 233(H) 0 - 199 mg/dL [facility] Triglyceride 204(H) 0 - 150 mg/dL [facility] VLDL Cholesterol 41(H) 5 - 40 mg/dL [facility] HDL Cholesterol 44(L) 50 - 80 mg/dL [facility] LDL Cholesterol 148(H) 0 - 100 mg/dL [facility] Cholesterol Non-HDL 189(H) 0 - 130 mg/dl [facility] CHOL/HDL Ratio 5.2 [facility] 12/25/2023 2:18 PM EST 12/25/2023 6:07 PM EST Narrative [facility] - 12/25/2023 6:54 PM EST FASTING: NO Fasting reference interval. ??[facility] Lip[facility] testing results require a 12 hour fasting specimen. ??Use caution when interpreting non-fasting cholesterol and triglyceride results. Testing Performed at: [facility], [address] [facility], [place] [address], , Client Service Executive: Sherice Auguste MD CL#[id number] us [facility] Final Resul t [facility] [address] [place] [address], * (ABNORMAL) COMPREHENSIVE METABOLIC PANEL WITH GFR (12/25/2023 2:18 PM EST) Glucose 76 65 - 99 mg/dL [facility] Comment:Fasting Reference [facility] U[facility] Nitrogen Blood (BUN) 12 6 - 20 mg/dL [facility] Creatinine 0.9 0.4 - 1.1 mg/dL [facility] GFR 121 >=60 [facility] Comment: Units of measure for estimated Glomular Filtration Rate: ??mL/min/1.73m2. eGFR calculation is only valid for adults 18-85 years of age. Stages of Chronic Kidney Disease Stage ? GFR ??3 ? 30-59 ??4 ? 15-29 ??5 ? <15 Sodium 140 133 - 145 mmol/L [facility] Potassium 4.7 3.3 - 5.3 mmol/L [facility] Chloride 96 96 - 108 mmol/L [facility] Bicarbonate 29 22 - 32 mmol/L [facility] Anion gap 3 15 [facility] Calcium 9.3 8.6 - 10.5 mg/dL [facility] Protein Total (Serum) 7.5 6.2 - 8.2 g/dL [facility] Albumin 4.6 3.5 - 5.2 g/dl [facility] Alkaline phosphatase 108(H) 35 - 105 U/L [facility] AST (SGOT) 20 4 - 32 U/L [facility] ALT (SGPT) 20 4 - 33 U/L [facility] Bilirubin Total 0.3 0.1 - 1.0 mg/dL [facility] Globulin 2.9 1.4 - 4.8 g/dl [facility] Albumin/Globulin 2 1 - 3 [facility] Osmolality 269 253 - 285 mOsm/kg [facility] BUN/Creatinine Ratio 13 6 - 25 [facility] 12/25/2023 2:18 PM EST 12/25/2023 6:07 PM EST Narrative [facility] - 12/25/2023 8:08 PM EST FASTING: NO Testing Performed at: [facility], [address] [place] [address], , Client Service Executive: Sherice Auguste MD CL#[id number] Zulema Golden [place] [facility] Final Resul t [facility] [address] [facility] [place] [address], * HEPATITIS C ANTIBODY W/ REFLEX TO [...] 12/07/2021 7:33 PM EST Testing Performed at: [facility], [address] [place], [place] [address], , Client Service Executive: Sherice Auguste MD CL#[id number] [facility] Final Resul t Performing Organization Address City/[facility]/ZIP Co de Phone Number PHCT CONVERSIONS * PPD SKIN TEST (05/20/2019 5:22 PM EDT) # OF MM INDURATION (NOT REDNESS) 0 PH[facility] CONVERSIONS 05/20/2019 5:22 PM EDT Jann Hastings MD PROCEDURES Final Result Performing Organization Address City/[facility] Co de Phone Number PHCT CONVERSIONS from Last 3 Months or Most Recently Relevant to Health Maintenance Insurance [facility] PPO Care Teams Canal Boat Operator Relationship Specialty Start Date End Date Zulema Golden PA [address] [facility] [address] [place] [id number] PCP - General 05/26/23 Zulema Golden PA [address] [facility] [address] [place] [address] PCP - Backup PCP Internal Medicine 11/20/23
--- OUTSIDE RECORDS SUMMARY | 2025-01-25 07:55 | XMS_ITS ---
Author Name [place] Organization Unknown History of Medication Use Medication Directions Dispensed Refills Start Date End Date Status Methylphenidate HCl ER (LA) 40 MG Oral Capsule Extended Release 24 Hour Methylphenidate HCl ER (LA) 40 MG Oral Capsule Extended Release 24 HourTAKE ONE CAPSULE EVERY DAY Quantity: 30 Refills: Zulema Sunshine PA-C Start : [id number] 9 completed metFORMIN HCl - 500 MG Oral Tablet metFORMIN HCl - 500 MG Oral TabletTAKE 1 TABLET Every twelve hours (NEED LABS COMPLETED FOR FURTHER MED RENEWALS) Quantity: 28 Refills: Zulema Sunshine PA-C Start : [id number] 2 completed Levothyroxine Sodium 175 MCG Oral Tablet Levothyroxine Sodium 175 MCG Oral TabletTAKE 1 TABLET BY MOUTH EVERY DAY PLEASE GET BLOODWORK DONE AND MAKE APPOINTMENT Quantity: 14 Refills: Zulema Sunshine PA-C Start : [id number] 9 completed Breo Ellipta 200-25 MCG/INH AEPB Breo Ellipta 200-25 MCG/INH AEPBINHALE 1 PUFF BY MOUTH ONCE A DAY Quantity: 180 Refills: Zulema Reynolds PA-C Start : [id number] 9 completed ARIPiprazole 5 MG Oral Tablet ARIPiprazole 5 MG Oral TabletTAKE 1 TABLET DAILY. Refills: 0 Start : [id number]-[id number] 9 completed Allergies Allergen Reaction Severity Comment Documented Date Source Statu s GUANFACINE [facility] GABAPENTIN Fever [facility] GUANFACINE HCL ER TB24 [facility] GABAPENTIN [facility] Problems Problem Status Onset Date Problem Type Date of Resoluti on Source Mental disorder active 2022-07-[address] [facility] Schizoaffective schizophrenia active 2022-07-23 ProblemAct [facility] Asthma active 2022-07-23 ProblemAct [facility] Type 2 diabetes mellitus active 2022-07-23 ProblemAct [facility] Hypothyroidism active 2022-07-23 ProblemAct [facility] Immunizations Vaccine Date Source Lot Number Status Flucelvax Quadrivalent 0.5 M L Intramuscular Suspension Prefilled Syringe 07/20/2021 [facility] [id number] com pleted Adacel 5-2-15.5 LF-MCG/0.5 I ntramuscular Suspension 02/26/2019 [facility] [id number] completed Fluzone Quadrivalent 0.5 ML Intramuscular Suspension Prefilled Syringe 07/06/2020 [facility] [id number] com pleted Twinrix 720-20 Intramuscular Suspension 11/19/2019 [facility] [id number] completed Twinrix 720-20 Intramuscular Suspension 06/18/2019 [facility] [id number] completed Hepatitis A and Hepatitis B vaccine 05/18/2019 [facility] [id number] completed Encounters Encounter Type Encounter Reason Primary Diagnosis Location Date Ambulatory [facility] ([facility] 10/07/2024 [facility] 07/23/2022 Care Team Organization Name Specialty Phone Email Start Date End [facility] 07/20/2024 [facility] Primary Care 07/12/2024 [facility] 06/22/2024 [facility] 02/17/2024 [facility] 05/01/2023 [facility] 07/24/2022 [facility] 07/23/2022 07/23/2022 [facility] Primary Care 07/16/2021 11/20/2021
--- OUTSIDE RECORDS SUMMARY | 2025-01-25 07:55 | XMS_ITS | Clinical Summary ---
Author Organization [facility] Address [address] [place] [address] Care Team Providers Care Port Cdl A Driver Name Role Phone Zulema Golden Primary Care Provider [phone] Abad Mccann MD Unavailable [phone] Allergies Active Allergy Reactions Criticality Noted Date [...] (12/17/2017): Added automatically from request for surgery [id number] Family history of malignant neoplasm of breast 0 12/17/2017 Overview (12/17/2017): Added automatically from request for surgery [id number] Absence of breast, acquired, bilateral 8 Overview (12/17/2017): Added automatically from request for surgery [id number] 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
--- OUTSIDE RECORDS SUMMARY | 2025-01-25 07:55 | XMS_ITS | Encounter Summary ---
Author Organization [facility] Address [address] [place] [address] Care Team Providers Care Tactical Air Control Party Name Role Phone Zulema Golden Primary Care Provider [phone] Zulema Golden Unavailable [phone] Encounter Details Date Type Department Care Team (Late st Contact Info) Description 02/16/2024 Orders Only [facility] Primary Care [address] [place] [address] Zulema Golden PA [address] [facility] [address] [place] [address] Social History Tobacco Use Types Packs/Day Years [...] at . Any insurance accepted. Quit smoking resources-[email or web address]://[email or web address].org HEMOGLOBIN A1C % < 7 Result Component [...] of this encounter Procedures * Due to [place] [employer] law, this organization might not be sharing negative HIV tests. Procedure Name Priority Date/Time Associated Diagnosis Comments THYROID STIMULATING HORMONE (TSH) WITH FREE T4 REFLEX, SERUM Routine 02/16/2024 2:58 PM EDT Acquired hypothyroidism T4, FREE, SERUM Routine 02/16/2024 2:58 PM EDT Acquired hypothyroidism HEMOGLOBIN A1C Routine 02/16/2024 2:58 PM EDT Type 2 diabetes mellitus without complication, without long-term current use of insulin documented in this encounter Results * Due to [place] [employer] law, this organization might not be sharing negative HIV tests. * (ABNORMAL) T4, FREE, SERUM (02/16/2024 2:58 PM EDT) FT4 1.86(H) 0.70 - 1.80 ng/dL [facility] 02/16/2024 2:58 PM EDT 02/16/2024 9:53 PM EDT Narrative [facility] - 02/17/2024 1:44 AM EDT Testing Performed at: [facility], [address] [place] [address], , Smooth Plater: Sherice Auguste MD CL#[id number] [facility] Final Resul t Performing Organization Address [facility] de Phone Number [facility] [address] [place] [address], * (ABNORMAL) THYROID STIMULATING HORMONE (TSH) WITH FREE T4 REFLEX, SERUM (02/16/2024 2:58 PM EDT) TSH (Thyrotropin) 0.42(L) 0.50 - 4.80 uIU/ml [facility] 02/16/2024 2:58 PM EDT 02/16/2024 9:53 PM EDT Narrative [facility] - 02/16/2024 10:58 PM EDT Track Order?->No Release result to patient->Immediate Testing Performed at: [facility], [address] [place], [place] [id number], , Smooth Plater: Sherice Auguste MD CL#[id number] [facility] Final Resul t Performing Organization Address [facility] de Phone Number [facility] [address] [place] [address], * HEMOGLOBIN A1C (02/16/2024 2:58 PM EDT) Hemoglobin A1C 5.8 4.3 - 6.1 %A1C [facility] Comment: 5.7-6.4 Increased Risk of Diabetes >6.4 Consistent with Diabetes The [place] [employer] recommends a goal of less than 7% for diabetic patients. 02/16/2024 2:58 PM EDT 02/16/2024 9:53 PM EDT Narrative [facility] - 02/16/2024 10:22 PM EDT Track Order?->No Release result to patient->Immediate FASTING: NO Testing Performed at: [facility], [address] [place] [address], , Smooth Plater: Sherice Auguste MD CL#[id number] us [facility] Final Resul t [facility] [address] [place] [address], documented in this encounter Visit Diagnoses Diagnosis Type 2 diabetes mellitus without complication, without long-term current use of insulin (HCC) Acquired hypothyroidism Unspecified hypothyroidism documented in this encounter Care Teams Tactical Air Control Party Relationship Specialty Start Date End Date Zulema Golden PA [address] [facility] [address] [place] [address] PCP - General 05/26/23 Zulema Golden PA [address] [facility] [address] [place] [address] PCP - Backup PCP Internal Medicine 11/20/23 documented as of this encounter
--- OUTSIDE RECORDS SUMMARY | 2025-01-25 07:55 | XMS_ITS | Encounter Summary ---
Author Organization [facility] Address [address] [place] [address] Care Team Providers Care Plumbing Assembler Name Role Phone Abad Mccann MD Primary Care Provider Zulema Golden Primary Care Provider [phone] Abad Mccann MD Unavailable [phone] Encounter Details Date Type Department Care Team (Late st Contact Info) Description 09/24/2017 Scanned Document [facility] [place] [address] [facility] [address] [place] [address] Sarah Sherman MD [address] [place] [address] Social History Tobacco Use Types Packs/Day Years [...] on filedocumented in this encounter Care Teams Plumbing Assembler Relationship Specialty Start Date End Date Abad Mccann MD Carmina Ochoa [address] [place] [address] PCP - General Family Medicine 10/09/16 10/28/20 Zulema Golden [address] [place] [address] [address] [place] [address] PCP - General Internal Medicine 10/29/20 Abad Mccann MD [address] [place] [address] [address] Family Medicine 10/29/20 documented as of this encounter
[2025-01-25 11:14] LABS: MANUAL DIFF FLAG NO
[2025-01-25 11:17] LABS: Appearance Urine Clear; Color Urine Yellow; Glucose Urine UA Negative (Negative); Leukocyte Esterase Urine Negative (Negative); Nitrite Urine Negative (Negative); UMIC TRIGGER UACC YES; Urine Blood Large (3+) (Negative); Urine Ketones Negative (Negative); Urine Protein Negative (Neg-Trace)
[2025-01-25 11:23] LABS: Basophils Percent Auto 0.4 % (0-2); Eosinophils Absolute Auto 0.3 X10*3/uL (0.0-0.4); Eosinophils Percent Auto 3.1 % (0-4); Hematocrit 39.9 % (37.0-47.0); Hemoglobin 12.7 g/dl (12.0-16.0); Imm Gran Abs Auto 0.07 X10*3/uL (0.00-0.03); Imm Gran Pct Auto 0.7 % (0.0-0.4); Lymphocytes Absolute Auto 3.7 X10*3/uL (1.2-4.9); Lymphocytes Percent Auto 34.7 % (20-40); Mean Corpuscular HGB Conc 31.8 g/dl (31.0-35.0); Mean Corpuscular Hemoglobin 28.7 pg (27.0-33.0); Mean Corpuscular Volume 90.3 fL (80.0-98.0); Monocytes Absolute Auto 0.5 X10*3/uL (0.1-1.2); Monocytes Percent Auto 4.6 % (2-11); Neutrophils Percent Auto 56.5 % (45-73); Platelet Count 503 X10*3/uL (160-400); Red Blood Count 4.42 X10*6/uL (4.20-5.50); White Blood Count 10.6 X10*3/uL (4.8-10.8)
[2025-01-25 11:23] LABS: Bacteria Urine None Seen (None Seen); Hyaline Casts Urine 0-2 /LPF (0-2); RBC Urine >20 /HPF (0-2); WBC Urine 0-5 /HPF (0-5)
[2025-01-25 11:25] LABS: Estimated Average Glucose 160 mg/dL; Hemoglobin A1C 185.3959 umol/L; Hemoglobin A1c % 7.2 % (<6.0); Total Hemoglobin (HGBA1C) 3374.3907 umol/L
[2025-01-25 11:44] LABS: Alanine Aminotransferase 40 U/L (0-31); Albumin Level 4.2 g/dL (3.5-5.0); Alkaline Phosphatase 91 U/L (39-117); Anion Gap 12 (12-20); Aspartate Amino Transferase 36 U/L (5-31); Bilirubin Total 0.4 mg/dL (0.0-1.0); Blood Urea Nitrogen 10 mg/dL (9-16); Calcium 9.5 mg/dL (8.4-10.2); Carbon Dioxide 25 mmol/L (22-29); Chloride 105 mmol/L (96-108); Cholesterol 155 mg/dL (<200); Estimated Glomerular Filt Rate > 60; Glucose Fasting 144 mg/dL (60-99); HDL Cholesterol 37 mg/dL (>40); LDL Cholesterol Calculated 85 mg/dL (<100); Magnesium 2.1 mg/dL (1.6-2.6); Potassium 4.1 mmol/L (3.3-5.1); Sodium 138 mmol/L (135-145); Total Protein 7.4 g/dL (6.5-8.0); Triglycerides 168 mg/dL (<150)
[2025-01-25 12:02] LABS: TSH reflex Free T4 3.22 uIU/mL (0.32-4.0)
[2025-01-25 12:06] LABS: Vitamin B12 466 pg/mL (200-900)
== END 2025-01-25 07:51 | disposition home or self-care (01) ==
LOC: HO.WFDLDS 07:50
PROVIDERS: Visit Provider Physician Assistant
DX: I10 Essential (primary) hypertension (principal); E78.5 Hyperlipidemia, unspecified; K21.9 Gastro-esophageal reflux disease without esophagitis; R73.01 Impaired fasting glucose
CPT/HCPCS: 36415; 80053; 80061; 81001; 82607; 82746; 83036; 83735; 84443; 85025

== ENCOUNTER 2025-03-10 08:24 | Outpatient (AMB) | payer OTHER, SELFPAY ==
--- NOTE | 2025-03-10 08:27 | MHC.PC.OV ---
Vital Signs 03/10/25 08:30 Height 5 ft 6.14 in Weight 289 lb 2 oz BMI 46.5 BP 114/84 Blood Pressure Location Lt brachial Position Sitting Respiration 14 Pulse 96 Pulse Source Pulse Oximeter Pulse Oximetry (%) 96 Oxygen Delivery Method Room Air Intake Visit Reasons: 30 minute appt to discuss resent results. Intake Note: Follow up lab results Quotation Checker Required: No Allergies guanfacine Allergy (Severe, Verified 03/10/25 08:28) low blood pressure gabapentin Allergy (Verified 03/10/25 08:28) Fever Medication List - Last Reconciled 03/10/25 by Nadine Walls PA-C albuterol sulfate 90 mcg/actuation (Ventolin HFA) inhalation escitalopram oxalate 20 mg PO DAILY levothyroxine 175 mcg PO DAILY lisinopril 20 mg PO DAILY omeprazole 20 mg PO DAILY rosuvastatin 10 mg PO BEDTIME Tobacco use date assessed: 03/10/25 Dental Screening Dental Screen Date: 03/10/25 Did you have a dental visit in the last 12 months?: No Did you have a dental problem in the last 6 months where you did not have access to dental care?: No Was dental information given to patient?: Patient declined HPI 30 minute appt to discuss resent results. HPI Details Patient is a 25-year-old female with a significant past medical history of hypothyroidism, hypertension, hyperlipidemia, asthma, bipolar, bulimia, schizoaffective disorder, ptsd, anxiety, depression and ADHD presenting today for follow up. Psych: Currently following with [facility]. On Lexapro 30 mg. They are waiting on adderall for bp to come down then restart. CV: Blood pressure today in the office is 114/84. She was increased on the lisinopril to 20 mg at our last visit. Cholesterol is managed with rosuvastatin 10 mg at bedtime. Last LDL 85 Endo: Last TSH was WNL. On levothyroxine 175 mcg. -recently had labs drawn which did show type 2 diabetes with an A1c of 7.2. She states she forgot to mention that she has a hx of this at our first visit. She states she was dx with t2dm around 2021. She was started at the time on metformin but with some diet modifications her dm improved. She states the last year her a1c improved and she was just diet controlled. She states her whole fam has t2dm. -she does not like the idea of going on metformin as she did not tolerate this. It caused stomach upset at the lowest dose. GI: state she has been getting a lot of acid reflux x 2 weeks and taking tums BID. She states that it is helpful. No difficulty swallowing. No weight loss, n/v/d. Trying to cut out soda. Professional Nursing Assistant: overdue, has irregular menses. Fam hx: Mother has TIAs, htn, boderline personality and bipolar 2, t2dm; maternal grandfather HTN; Paternal grandfather dm, htn, cva; Father hypothyroid, t2dm PFSH Family History (Updated 01/06/25 @ 11:46 by Roshni Mauricio [facility]) Brother Alcoholism Substance abuse Sister Anxiety Depression Mother Bipolar 2 disorder Schizoaffective disorder Social History (Updated 01/06/25 @ 11:50 by Roshni Mauricio CMA) Housing: Apartment Alcohol intake: current Comment: less then once a month Patient Tobacco Use Status: Former Tobacco user Cigarettes Per Day: 10 Years Smoked: 2 e-Cigarette/Vaping Use: Currently Using Second Hand Smoke Exposure: No service: No Current occupational status: disabled Current occupation: On SSI Cognitive needs: No Hearing needs: No Vision needs: No Questionnaire Thrive Questionnaire Date Thrive assessed: 12/23/24 I am a: Patient What is your living situation today?: I have a place to live, but I am worried about losing it in the future Within the past 12 months, did the food you bought not last and you didn't have the money to get more?: Often true Within the past 12 months, did you worry whether your food would run out before you got money to buy more?: Often true Do you have trouble paying for medicines?: No Do you have trouble getting transportation to medical appointments?: No Do you have trouble paying your heating and electricity bill?: Yes Do you have trouble taking care of your child, family member or friend?: No Do you have trouble with day-to-day activities such as bathing, preparing meals, shopping, managing finances, etc.?: Yes Are you currently unemployed and looking for a job?: Yes Are you interested in more education?: Yes Please select the resources that you would like help with: None THRIVE Score: 4 AUDIT C Alcohol Use Questionnaire (AUDIT-C) 1. How often do you have a drink containing alcohol?: 2-4 times a month 2. How many drinks containing alcohol do you have on a typical day when you are drinking?: 1 or 2 3. How often do you have six or more drinks on one occasion?: Never Total Score: 2 ABHI-7 AMB Questionnaire ABHI-7 Date ABHI - 7 assessed: 01/06/25 Source: Developed by Drs. Corey Hall, Yaneth Black, Patrice Boykin and colleagues, with an educational hector from [employer]. Physical exam (Primary Care) Vital Signs: Last Vital Signs Pulse 96 03/10/25 08:30 Resp 14 03/10/25 08:30 BP 114/84 03/10/25 08:30 Pulse Ox 96 03/10/25 08:30 Oxygen Delivery Method Room Air 03/10/25 08:30 BMI result Body Mass Index 46.5 Tobacco/Smoking Status: Tobacco use Status Tobacco use date assessed 03/10/25 03/10/25 08:34 Patient Tobacco Use Status Former Tobacco user 03/10/25 08:28 e-Cigarette/Vaping Use Currently Using 03/10/25 08:28 Thrive Assessment: Date of Thrive Assessment Date Thrive assessed 12/23/24 03/10/25 08:28 Const Orientation/consciousness: patient oriented x3 HENMT Ears: hearing grossly normal bilaterally Neck Thyroid: Thyroid normal Lymphatic: no lymphadenopathy noted Resp Auscultation: clear to auscultation bilaterally Cardio Rate: regular rate Rhythm: regular rhythm Heart sounds: S1 normal heart sound present and S2 normal heart sound present GI Inspection: Yes normal to inspection Palpation (GI): Soft to palpation and Other GI palpation findings present (nontender, no cva tenderness) Auscultation: normoactive bowel sounds Rectal Exam - Female: deferred Skin General skin exam: no rashes or lesions noted Neuro General: patient oriented x3, gait normal and no focal motor deficits Results Reviewed Results Reviewed: Laboratory Tests 01/25/25 07:51 WBC 10.6 RBC 4.42 Hgb 12.7 Hct 39.9 Plt Count 503 H Sodium 138 Potassium 4.1 Chloride 105 Carbon Dioxide 25 Anion Gap 12 BUN 10 Creatinine 0.77 Estimated GFR > 60 Fasting Glucose 144 H Estimat Average Glucose 160 Hemoglobin A1c % 7.2 H Calcium 9.5 Magnesium 2.1 Total Bilirubin 0.4 AST 36 H ALT 40 H Alkaline Phosphatase 91 Total Protein 7.4 Albumin 4.2 Triglycerides 168 H Cholesterol 155 LDL Cholesterol, Calc 85 HDL Cholesterol 37 L Vitamin B12 466 Folate 6.0 TSH 3.22 Coding Level of Care Code Est Pt Level 5 (89032) Complex EM visit Add On G2211 Diagnoses Uncontrolled type 2 diabetes mellitus with hyperglycemia E11.65 HTN (hypertension) I10 Dyslipidemia E78.5 Elevated LFTs R79.89 Assessment & Plan Assessment & Plan (1) Uncontrolled type 2 diabetes mellitus with hyperglycemia: Code(s): E11.65 - Type 2 diabetes mellitus with hyperglycemia Category: Medical Plan: we spent 45 min in face to face time discussing the pathophysiology of t2dm, signs and symptoms of hyper/hypoglycemia, and complications associated with dm including but not limited to kidney disease, blindness, cvas, mis, amputations, infections, etc. Testing supplies ordered Reviewed rule of 15. did not tolerate metformin the past with gi upset will start trulicity. discussed risks/benefits and adverse effects. discussed diet changes and advised to start walking 30 min a day paginator referral placed dm educator referral placed will recheck labs in 3-4 weeks. f/u at that time (2) HTN (hypertension): Code(s): I10 - Essential (primary) hypertension Category: Medical Plan: wnl continue lisinopril 20 mg (3) Dyslipidemia: Code(s): E78.5 - Hyperlipidemia, unspecified Category: Medical Plan: continue crestor 10 mg daily (4) Elevated LFTs: Code(s): R79.89 - Other specified abnormal findings of blood chemistry Category: Medical Plan: Labs and ultrasound ordered. We will follow up pending test results. Did discuss possibility to her uncontrolled type 2 diabetes. Orders: Orders Basic Metabolic Panel Today E11.65 - Type 2 diabetes mellitus with hyperglycemia, R79.89 - Other specified abnormal findings of blood chemistry, R94.5 - Abnormal results of liver function studies Hepatitis C Antibody Today E11.65 - Type 2 diabetes mellitus with hyperglycemia, R79.89 - Other specified abnormal findings of blood chemistry, R94.5 - Abnormal results of liver function studies US abdomen comp w elastography Today E11.65 - Type 2 diabetes mellitus with hyperglycemia, R79.89 - Other specified abnormal findings of blood chemistry, R94.5 - Abnormal results of liver function studies Liver Panel Today E11.65 - Type 2 diabetes mellitus with hyperglycemia, R79.89 - Other specified abnormal findings of blood chemistry, R94.5 - Abnormal results of liver function studies Gamma Glutamyl Transpeptidase Today E11.65 - Type 2 diabetes mellitus with hyperglycemia, R79.89 - Other specified abnormal findings of blood chemistry, R94.5 - Abnormal results of liver function studies Hepatitis B Surface Antigen Today E11.65 - Type 2 diabetes mellitus with hyperglycemia, R79.89 - Other specified abnormal findings of blood chemistry, R94.5 - Abnormal results of liver function studies Referrals International Exchange Coordinator Nutrition Referral E11.65 - Type 2 diabetes mellitus with hyperglycemia, E78.5 - Hyperlipidemia, unspecified, I10 - Essential (primary) hypertension Diabetes Education Referral E11.65 - Type 2 diabetes mellitus with hyperglycemia, E78.5 - Hyperlipidemia, unspecified, I10 - Essential (primary) hypertension Medications: New lancets (Accu-Chek Softclix Lancets) Use once daily as directed to monitor blood sugars 100 ea 3RF E11.65 - Type 2 diabetes mellitus with hyperglycemia dulaglutide (Trulicity) 0.75 mg (0.5 mL) subcut QWEEK 2 mL 3RF blood sugar diagnostic (Accu-Chek Guide test strips) Use once daily As directed to monitor blood sugars 100 ea 3RF E11.65 - Type 2 diabetes mellitus with hyperglycemia
[2025-03-10 08:30] VITALS: BP 114/84; PULSE 96; RESP 14; O2SAT 96; BMI 46.5
--- OUTSIDE RECORDS SUMMARY | 2025-03-10 08:34 | XMS_ITS | Clinical Summary ---
Author Organization [facility] Address [address] [place] [address] Care Team Providers Care Business Account Manager Name Role Phone Zulema Golden Primary Care [...] Gender dysphoria 12/30/2019 Schizoaffective disorder, depressive type ([facility]) 11/12/2017 Immunizations Immunization Administration Dates Next [...] Health Maintenance Due Date Last Done Comments Annual Physical Exam 02/22/2016 Pneumococcal Vaccine: Peds ( 0 to 5 Yrs) and At-Risk Pts (6 to 49 Yrs) (1 of 2 - PCV) 2017 Tdap and Td Vaccines Adult 2017 Pap Smear 2019 COVID-19 Vaccine (3 - 2023-2 5 season) 2024 02/22/2021, 01/31/2021 Influenza Vaccine (Season Ended) 2025 HIB Vaccines Aged Out No longer eligi ble based on patient's age to complete this topic HPV Vaccines Aged Out No longer eligi ble [...] to complete this topic Insurance MEDICAID IN-STATE Member Subscriber Plan / Payer (Ef fective 2019-Present) Name:Fawad Reed Relation to Subscriber:Self Name:Fawad Reed Payer ID:[id number] Group ID:Not on file Type:Not on file Address: [address] Care Teams Business Account Manager Relationship Specialty Start Date End Date Zulema Golden PA [address] [facility] [address] [place] [address] PCP - General Internal Medicine 12/30/19
--- OUTSIDE RECORDS SUMMARY | 2025-03-10 08:34 | XMS_ITS | Clinical Summary ---
Author Organization [facility] Address [address] [place] [address] Care Team Providers Care Boat Master Name Role Phone Zulema Golden Primary Care [...] age to complete this topic Care Teams Boat Master Relationship Specialty Start Date End Date Zulema Golden PA [address] [place] [address] PCP - General Auto Body Repair Teacher 01/31/21
--- OUTSIDE RECORDS SUMMARY | 2025-03-10 08:35 | XMS_ITS | Clinical Summary ---
Author Organization [facility] Address [address] [place] [address] Care Team Providers Care Solar Field Installation Crew Member Name Role Phone Unknown Pcp, Non Php Primary Care Provider Unava ilable Allergies Active Allergy Reactions Criticality Noted Date Comments Gabapentin 02/26/2019 [facility] Comment: [id number]: fever Guanfacine Hcl Er 02/26/2019 [facility] Comment: [id number]: hypotensive Medications Escitalopram Oxalate (LEXAPRO) 20 MG [...] 90 tablet 2 4 06/10/20 25 Active Rosuvastatin Calcium (Crestor) 10 MG [...] and we will adjust dose as needed. Encounters Date Type Department Care Team Description 02/25/2025 Telephone [facility] [address] [place] [phone] Zulema Golden PA F/u From OV from Last 3 Months Immunizations Name Administration Dates Next Due COVID-19, [...] Health Maintenance Due Date Last Done Comments Pap Smear 2014 Eye/Retina Exam 02/22/2016 Pneumococcal (1 of 2 - PCV) 2017 COVID-19 Vaccine ( season) 2024 02/22/2021, 01/31/2021 Influenza (#1) 2024 07/23/2022, 100 10/2020, 07/06/2020, Additional history exists HA1C 08/17/2024 02/16/2024, [...] Screening Completed 12/07/2021 Physical Discontinued 03/19/2022, 02/26/2019 HPV Vaccine Aged Out No longer eligi ble based on patient's age to complete this topic Hib Aged Out No longer eligi ble [...] at . Any insurance accepted. Quit smoking resources-http://makesmoAdylitica.org HEMOGLOBIN A1C % < 7 Result Component [...] 120 is ideal. Procedures * Due to [place] [employer] law, this organization might not be sharing [...] to Health Maintenance Results * Due to [place] [employer] law, this organization might not be sharing negative HIV tests. * HEMOGLOBIN A1C (02/16/2024 2:58 PM EDT) Hemoglobin A1C 5.8 4.3 - 6.1 %A1C [facility] Comment: 5.7-6.4 Increased Risk of Diabetes >6.4 Consistent with Diabetes The [place] [employer] recommends a goal of less than 7% for diabetic patients. 02/16/2024 2:58 PM EDT 02/16/2024 9:53 PM EDT Narrative [facility] - 02/16/2024 10:22 PM EDT Track Order?->No Release result to patient->Immediate FASTING: NO Testing Performed at: [facility], [address] [place] [address], , Chainsaw Mechanic: Sherice Auguste MD CL#[id number] [facility] Final Resul t Performing Organization Address [facility] de Phone Number [facility] [address] [place] [address], * ALBUMIN (MICROALBUMIN), RANDOM URINE, WITH CREATININE (12/25/2023 2:18 PM EST) Albumin (Urine) 8 0 - 23 mg/L [facility] Creatinine (Urine) 168 60 - 200 mg/dL [facility] 12/25/2023 2:18 PM EST 12/25/2023 6:07 PM EST Narrative [facility] - 12/25/2023 9:26 PM EST Microalbumin<12.0, Alb/Creat Ratio Invalid Testing Performed at: [facility], [address] [place] [address], , Chainsaw Mechanic: Sherice Auguste MD CL#[id number] [facility] Final Resul t Performing Organization Address [facility] de Phone Number [facility] [address] [place] [address], * (ABNORMAL) LIPID PANEL WITH REFLEX TO DIRECT LDL (12/25/2023 2:18 PM EST) Cholesterol 233(H) 0 - 199 mg/dL [facility] Triglyceride 204(H) 0 - 150 mg/dL [facility] VLDL Cholesterol 41(H) 5 - 40 mg/dL [facility] HDL Cholesterol 44(L) 50 - 80 mg/dL [facility] LDL Cholesterol 148(H) 0 - 100 mg/dL [facility] Cholesterol Non-HDL 189(H) 0 - 130 mg/dl [facility] CHOL/HDL Ratio 5.2 [facility] 12/25/2023 2:18 PM EST 12/25/2023 6:07 PM EST Narrative [facility] - 12/25/2023 6:54 PM EST FASTING: NO Fasting reference interval. ??[facility] Lipid testing results require a 12 hour fasting specimen. ??Use caution when interpreting non-fasting cholesterol and triglyceride results. Testing Performed at: [facility], [address] [facility], [place] [address], , Chainsaw Mechanic: Sherice Auguste MD CL#[id number] [facility] Final Resul t [facility] [address] [place] [id number], * (ABNORMAL) COMPREHENSIVE METABOLIC PANEL WITH GFR (12/25/2023 2:18 PM EST) Glucose 76 65 - 99 mg/dL [facility] Comment:Fasting Reference In terval Urea Nitrogen Blood (BUN) 12 6 - 20 mg/dL [facility] Creatinine 0.9 0.4 - 1.1 mg/dL [facility] GFR 121 >=60 [facility] Comment: Units of measure for estimated Glomular Filtration Rate: ??mL/min/1.73m2. eGFR calculation is only valid for adults 18-85 years of age. Stages of Chronic Kidney Disease Stage ? GFR ??3 ? 30-59 ??4 ? 15-29 ??5 ? <15 Sodium 140 133 - 145 mmol/L [facility] Potassium 4.7 3.3 - 5.3 mmol/L [facility] Chloride 96 96 - 108 mmol/L [facility] Bicarbonate 29 22 - 32 mmol/L [facility] Anion gap 3 15 [facility] Calcium 9.3 8.6 - 10.5 mg/dL [facility] Protein Total (Serum) 7.5 6.2 - 8.2 g/dL [facility] Albumin 4.6 3.5 - 5.2 g/dl [facility] Alkaline phosphatase 108(H) 35 - 105 U/L [facility] AST (SGOT) 20 4 - 32 U/L [facility] ALT (SGPT) 20 4 - 33 U/L [facility] Bilirubin Total 0.3 0.1 - 1.0 mg/dL [facility] Globulin 2.9 1.4 - 4.8 g/dl [facility] Albumin/Globulin 2 1 - 3 [facility] Osmolality 269 253 - 285 mOsm/kg [facility] BUN/Creatinine Ratio 13 6 - 25 [facility] 12/25/2023 2:18 PM EST 12/25/2023 6:07 PM EST Narrative [facility] - 12/25/2023 8:08 PM EST FASTING: NO Testing Performed at: [facility], [address] [place] [address], , Chainsaw Mechanic: Sherice Auguste MD CL#[id number] Zulema Golden HI LABORATORY Final Resul t [facility] [address] [place] [address]. [place] [address], * HEPATITIS C ANTIBODY W/ REFLEX TO [...] 12/07/2021 7:33 PM EST Testing Performed at: [facility], [address] [place] [address], , Chainsaw Mechanic: Sherice Auguste MD CL#[id number] us [facility] Final Resul t PHCT CONVERSIONS * PPD SKIN TEST (05/20/2019 5:22 PM EDT) # OF MM INDURATION (NOT REDNESS) 0 [facility] CONVERSIONS 05/20/2019 5:22 PM EDT us Jann Hastings MD PROCEDURES Final Result Performing Organization Address City/[facility]/ZIP Co de Phone Number PHCT CONVERSIONS from Last 3 Months or Most Recently Relevant to Health Maintenance Insurance [facility] PPO Care Teams Solar Field Installation Crew Member Relationship Specialty Start Date End Date Unknown Pcp, Non Php PCP - General 03/01/25
--- OUTSIDE RECORDS SUMMARY | 2025-03-10 08:35 | XMS_ITS | Encounter Summary ---
Author Organization [facility] Address [address] [place] [address] Care Team Providers Care Plant Physiologist Name Role Phone Abad Mccann MD Primary Care Provider [phone] Zulema Golden Primary Care Provider [phone] Abad Mccann MD Unavailable [phone] Encounter Details Date Type Department Care Team (Late st Contact Info) Description 12/11/2017 Scanned Document [facility] Breast Care & Surgery [place] [address] [facility] [address] [place] [address] Sarah Sherman MD [address] [facility] [address] [place] [address] Social History Tobacco Use Types Packs/Day Years Used Date Smoking Tobacco: Some Days Smokeless Tobacco: Never Alcohol Use Standard Drinks/Week Comments Yes 0 (1 standard drink = 0.6 oz pur e alcohol) Comments Unknown Sex and Gender Information Value [...] on filedocumented in this encounter Care Teams Plant Physiologist Relationship Specialty Start Date End Date Abad Mccann MD [address] [place] [address] PCP - General Family Medicine 10/09/16 10/28/20 Zulema Golden [address] [place] [address] PCP - General Internal Medicine 10/29/20 Abad Mccann MD [address] [place], [place] [address]b[address] [place] [address] Family Medicine 10/29/20 documented as of this encounter
--- OUTSIDE RECORDS SUMMARY | 2025-03-10 08:35 | XMS_ITS | Encounter Summary ---
Author Organization [facility] Address [address] [place] [address] Care Team Providers Care Alteration Hand Name Role Phone Abad Mccann MD Primary Care Provider [phone] Zulema Golden Primary Care Provider [phone] Abad Mccann MD Unavailable [phone] Encounter Details Date Type Department Care Team (Late st Contact Info) Description 09/24/[address] [facility] Breast Care & Surgery [place] [address] [facility] [address] [place] [address] Sarah Sherman MD [address] [facility] [address] [place] [address] Social History Tobacco Use Types Packs/Day Years Used Date Smoking Tobacco: Some Days Comments Unknown Sex and Gender Information Value [...] on filedocumented in this encounter Care Teams Alteration Hand Relationship Specialty Start Date End Date Abad Mccann MD [address] [place], [place] [id number] PCP - General Family Medicine 10/09/16 10/28/20 Zulema Golden [address] [place] [address] PCP - General Internal Medicine 10/29/20 Abad Mccann MD [address] [place] [address] [address] Family Medicine 10/29/20 documented as of this encounter
--- OUTSIDE RECORDS SUMMARY | 2025-03-10 08:35 | XMS_ITS | Data Portability ---
Author Organization [facility] [address] Address [address] [place] [address] Assessment No assessment recorded. Plan of Treatment Reminders Order Date Submit Date Provider Last Modified By Organization Details Last Modified Time Details Appointments None recorded. Lab streptococc us group A, culture, throat 2022 023 ELORA [facility] ([facility], [address] [place] [address], [place], [address], 3 12:06:29 rapid strep group A, throat 2022 023 [email or web address] _[facility], [address] [place] [address], [place], [address], 3 09:39:59 Referral otolaryngol ogist referral - Recurrent AOM and sinusitis for many years 2023 024 [email or web address] Ear Nose Th[facility], [address] [place], [address], 4 17:39:03 orthopedic surgeon referral 2023 024 [facility] Orthopedic Surgeon, [address], [facility] [address], [place], [address], 4 08:44:46 physical therapist referral 2023 024 [facility] [place], [address] [place] [address], [address], 4 08:44:46 Procedures None recorded. Surgeries None recorded. Imaging None recorded. Medication Orders amoxicillin 875 mg-potassiu m clavulanate 125 mg tablet [address] [facility], [address] [place], [address], 4 17:38:24 diclofenac sodium 75 mg tablet,nighat yed release 2023 [address] [place], [address], 4 17:35:18 escitalopra m 20 mg tablet [address] [facility], [address] [place], [address], 4 08:42:45 amoxicillin 875 mg-potassiu m clavulanate 125 mg tablet [address] [facility], [address] [place], [address], 4 17:56:31 amoxicillin 875 mg tablet [address] [id number], [address] [place], [address], 16:25:56 Patient TargetsNo targets recorded. Patient Instructions Encounter Date Encounter Id Patient Instructions Last Modified By Organization Details Last Modified Time 11/12/2022 [id number] sore throat: car e instructions [email or web address] Not available 11/12/2022 09:41:44 10/31/2023 [id number] ear infection (otitis media): care instructions Not available 10/31/2023 16:38:59 06/21/2024 [id number] knee pain or injury: care instructions Not available 06/21/2024 08:42:42 Reason for Referral Orthopedic Surgeon Referral for Injury of knee Referring Physician: Kaylie Baig, Urgent Care, Encounter Date: 06/21/2024 Physical Therapist Referral for Injury of knee Referring Physician: Kaylie Baig, Urgent Care, Encounter Date: 06/21/2024 Computer Equipment Installer Referral fo r Chronic recurrent sinusitis Recurrent [...] p A). (CLSI ) Not Available [facility] ([facility]) [address] [facility], [place], [address], 11/14/2022 12:06:29 11/12/1911/12/2022 rapid strep group A, throa t Unknown Analyte Normal = Negati ve Not Available [address] [place] [address] [place], [address], 11/12/2022 09:39:47 11/12/1911/12/2022 rapid strep group A, throa t Unknown Analyte negati ve Not Available [address] [place] [address] [place], [address], 11/12/2022 09:39:47 Result Notes None recorded. Problems Name Problem SNOMED Code Status Onset Date Resolution Date Notes Provider Name and Address Organization Details Recorded Time Asthma 292295916 Active 2022 IRIS COUVERTIE R null, [place] - [facility] 3 09:00:21 Diabetes mellitus 16731426 Active 2022 IRIS COUVERTIE R null, [place] - [facility] 3 09:00:29 Hypothyroidism 40081306 Active 2022 IRIS COUVERTIE R null, PA - [facility] 3 09:00:35 Nasal sinus problem 270980676 Active 2022 IRIS COUVERTIE R null, PA - [facility] 3 09:00:48 Attention deficit hyperactivity disorder 081288272 Active 2022 IRIS COUVERTIE R null, PA - [facility] 3 09:01:11 Problem Notes None recorded. Procedures Surgical History Date Name Laterality Status Provider Name and Address Organization Details Recorded Time 4 Cerumen Removal by Irrigation completed MARCELA Elias [address] [place], [place] [address], [address], [place] - [facility] 05/10/2024 18:13:53 Imaging Results None recorded. Procedure Notes None recorded. Medical Equipment None Reported. Allergies Allergen ID Allergen Name Allergen Category Reaction Reaction Severity Criticality Documentation Date Start Date Code Code System Note Provider Name and Address Organization Details Recorded Time 070716 gabapenti n medicatio n Not available Not available Not available 11/12/2022 97588 RxNorm IRIS COUVERTIE R null, PA - [facility] 3 08:58:46 384133 guanfacin e medicatio n other Not available Not available 11/12/2022 29126 RxNorm IRIS COUVERTIE R null, PA - [...] t Available Vitals Date Recorded Body height Respiratory rate Body temperature Oxygen saturation Oxygen saturation in Arterial blood by Pulse oximetry Heart rate Body mass index (BMI) Body weight Systolic blood pressure Diastolic blood pressure Systolic blood pressure Diastolic blood pressure Provider Name and Address Organization Details Last Updated DateTime 4 165.1 cm 18 /min 97.5 [degF] 98 % 98 % 83 /min 45.3 kg/m2 004039. 12 g 158 mm[Hg] 106 mm[Hg] 150 [...] Updated DateTime 3 165.1 cm 48.3 kg/m2 190044. 79 g 98.7 [degF] 18 /min 76 /min 97 % 97 % 128 mm[Hg] 88 mm[Hg] NEMO Reis PA - [facility] 3 09:04:38 Date Recorded Body height Body mass index (BMI) Body weight Body temperature Respiratory rate Oxygen saturation Oxygen saturation in Arterial blood by Pulse oximetry Heart rate Systolic blood pressure Diastolic blood pressure Provider Name and Address Organization Details Last Updated DateTime 4 165.1 cm 45.3 kg/m2 175906. 12 g 97.7 [degF] 18 /min 100 % 100 % 89 /min 135 mm[Hg] 83 mm[Hg] Melvina Hurleyer PA - [facility] 4 17:55:01 Date Recorded Body height Body mass index (BMI) Body weight Oxygen saturation Oxygen saturation in Arterial blood by Pulse oximetry Heart rate Respiratory rate Body temperature Systolic blood pressure Diastolic blood pressure Provider Name and Address Organization Details Last Updated DateTime 4 165.1 cm 45.3 kg/m2 966074. 12 g 100 % 100 % 77 /min 18 /min 97.2 [degF] 136 mm[Hg] 93 mm[Hg] Tamika Ashby PA - [facility] 4 08:32:31 Date Recorded Body height Body mass index (BMI) Body weight Oxygen saturation Oxygen saturation in Arterial blood by Pulse oximetry Heart rate Respiratory rate Body temperature Systolic blood pressure Diastolic blood pressure Provider Name and Address Organization Details Last Updated DateTime 4 165.1 cm 44.9 kg/m2 131449. 94 g 98 % 98 % 76 /min 18 /min 98.3 [degF] 136 mm[Hg] 85 mm[Hg] Susan Abraham PA - [facility] 4 17:34:50 Social History Question Answer Notes LastModified by Organizat ion Details LastModified Time Tobacco Smoking Status Former Smoker Susan Abraham gerardo PA - [facility] 10/07/2024 17:36:32 When Did You Quit Smoking? 1-5yearssinc elastcigaret te 07/2024 [email or web address] Information not available 10/07/2024 Have You Had A Flu Shot This Season? No [email or web address] Information not available 10/07/2024 If No, Would You Like A Flu Shot Today? No [email or web address] Information not available 10/07/2024 What Is Your Water Source? City Information not available 11/12/2022 What Is Your Heat Source? Gas Information not available 11/12/2022 Have You Had Direct Contact, Or Contact During Intimacy, With Monkeypox Rash, Scabs, Or Body Fluids From A Person With Monkeypox? No Information not available 11/12/2022 What Was The Date Of Your Most Recent Tobacco Screening? 10/07/2024 [email or web address] Information not available 10/07/2024 What Is Your Relationship Status? Domestic Partner [email or web address] Information not available 05/10/2024 Have You Recently Traveled Abroad? No Information not available 11/12/2022 How Many Years Have You Used E-cigarettes Or Vape? 2023 [email or web address] Information not available 10/07/2024 Sex: Male Functional Status Question Answer Note LastModified by Symtext ion Details LastModified Time Do you use any illicit or recreational drugs? No Information not available 11/12/2022 Do you or have you ever used any other forms of tobacco or nicotine? Yes [email or web address] Information not available 10/07/2024 What is your level of alcohol consumption? None Information not available 11/12/2022 Do you or have you ever used smokeless tobacco? Never used smokeless tobacco [email or web address] Information not available 10/07/2024 Are you currently employed? Yes [email or web address] Information not available 10/07/2024 Do you or have you ever used e-cigarettes or vape? Current user of electronic cigarettes [email or web address] Information not available 10/07/2024 Mental Status None recorded. Family History Relationship Description Onset Age of this Age Resolved Age Notes LastModified by Organization Details LastModified Time Father No current problems or disability Not available 09:01:14 Mother No current problems or disability Not available 09:01:14 Unspecified Relation Hypertensive disorder [email or web address] Not available 2023 16:31:11 Medical History No medical history recorded. Gynecological History Statement/Question Response Date of LMP 03/03/2024 Is there any chance of ? No LMP Definite Obstetrics History GPAL:G 0 P 0 0 0 0 Past Encounters Encounter ID Performer Location Encounter Start Date Encounter Closed Date Diagnosis/Indication Diagnosis SNOMED-CT Code Diagnosis ICD10 Code Diagnosis Note [id number] Jami Carr MD [address] [place] [address] 11/12/2022 08:46:40 11/12/2022 09:44:02 Acute pharyngitis 809160466 J02.9 [id number] MARCELA Elias [address] [facility] [address] [place] [address] 10/31/2023 16:12:06 10/31/2023 17:24:17 Acute left otitis media 559288238 H66.92 An ear infection may start with [...] take the full course of antibiotic s. [id number] MARCELA DOUGLAS [address] [place] [address] 05/10/2024 17:49:30 05/10/2024 18:17:54 Impacted cerumen in right ear 2734466969 209358 H61.21 Based on your presentati on and [...] neck7. Stiff neck. Thank you for using [facility] today, please feel free to contact our office if you have any questions or concerns. [id number] MARCELA Elias [address] [place] [address] 06/21/2024 08:20:24 06/21/2024 08:44:45 Injury of knee 109054902 S89.92XA Based on your presentati on and [...] Redness5. Calf Swelling Thank you for using [facility] , please contact our office if you have any questions or concerns. Anxiety 81130004 F41.9 We are filling your medication as a 1 time courtesy refill. We are unable to refill in the future. Please ensure you have follow up with your PCP for future medication management [id number] MARCELA Elias [address] [facility] [facility] [address] [place] [address] 10/07/2024 17:22:07 10/07/2024 17:39:02 Acute left otitis media 234204234 H66.92 An ear infection may start with [...] of antibiotic s. Chronic re current sinusitis 848881892 J32.9 Health Concerns Section Related Observation LastModified by Organization Detai ls LastModified Time None Recorded Concern Status LastModified by Organization Details LastModified Time None Recorded Advance Directives Directive None Recorded Payers Insurance Date Sequence Insurance Name Policy Number Policy Qiu Covered Member ID Qiu Member ID Guarantor Name 10/07/2024 2 [place] [facility] Fawad Reed [id number] Fawad Reed 05/10/[address] [facility] (MEDICAID REPLACEMENT - HMO) Fawad Reed [id number] Fawad Reed 10/07/2024 1 [facility] (MEDICAID HMO) PABLO Reed [id number] Fawad Reed 05/10/2024 1 [facility] ([place] [id number] Lionel Sheldon Pleasent [id number] Fawad Reed 04/16/2023 1 [facility] [id number] Lionel Sheldon Pleasent [id number] Fawad Reed Notes Date Note Type Note Provider Name and Address Organization Details Recorded Time 11/12/2022 text/html Sore throatRepor noe bypatient.Location:[facility] Severity:moderate Quality:sharp Onset/Timin weeks Associated Symptoms:no cough; no sputum production; no shortness of breath; no wheezing; no sinus pain; no vomiting; no nausea; No hoarseness Context:no sick contacts; no foreign travel; non-smoker Jami Carr MD [address] [place], [address], [place] - [facility] 11/12/2022 10:20:47 05/10/2024 text/html 24 y/o pt here w ith R ear feeling clogged for the past 3 days since returning from the [place] MARCELA Elias [address] [place], [address], [place] - [facility] 05/10/2024 18:14:11 06/21/2024 text/html 24 y/o female he re with L knee pain after it may have subluxed last night. She has had issues with it for several years, and has not had evaluation or treatment.Squatted down last night and started having worsening pain. MARCELA Elias [address] [place], [address], [place] - [facility] 06/21/2024 09:02:49 10/07/2024 text/html 24 y/o pt with several days of L ear discomfort and feeling clogged. h/o recurrent AOM and sinus issues. [place], [address], [place] - [facility] 10/07/2024 17:46:52 OBGyn Episode No OBEpisode recorded.
--- OUTSIDE RECORDS SUMMARY | 2025-03-10 08:35 | XMS_ITS | Encounter Summary ---
Author Organization [employer] Address [address] [place] [address] Care Team Providers Care Cytotechnologist/Cytology Supervisor Name Role Phone Zulema Golden Primary Care Provider Encounter Details Date Type Department Care Team (Latest Contact Info) Description 05/05/2020 Scanned Document [employer] [facility] [address] [place] [address] System, Provider Not In 12/31/2019 Endocrinology Review [...] on filedocumented in this encounter Care Teams Cytotechnologist/Cytology Supervisor Relationship Specialty Start Date End Date Zulema Golden PA [address] [facility] [address] [place] [address] PCP - General Internal Medicine 12/30/19 documented as of this encounter
--- OUTSIDE RECORDS SUMMARY | 2025-03-10 08:35 | XMS_ITS | Encounter Summary ---
Author Organization [employer] Address [address] [place] [address] Care Team Providers Care Grated Cheese Maker Name Role Phone Zulema Golden Primary Care Provider Encounter Details Date Type Department Care Team (Latest Contact Info) Description 05/05/2020 Scanned Document [employer] [facility] [address] [place] [address] System, Provider Not In 12/31/2019 [facility] Prior [...] on filedocumented in this encounter Care Teams Grated Cheese Maker Relationship Specialty Start Date End Date Zulema Golden PA [address] [facility] [address] [place] [address] PCP - General Internal Medicine 12/30/19 documented as of this encounter
--- OUTSIDE RECORDS SUMMARY | 2025-03-10 08:35 | XMS_ITS | Encounter Summary ---
Author Organization [facility] Address [address] [place] [address] Care Team Providers Care Respiratory Technician Name Role Phone Unknown Pcp, Non Php Primary Care Provider Unava ilable Reason for Visit * Reason Comments Results Encounter Details Date Type Department Care Team ([facility] st Contact Info) Description 12/26/2023 Telephone [facility] [address] [place] [address] Zulema Golden PA [address] [facility] [address] [place] [address] Results Social History Tobacco Use Types Packs/Day [...] would like any potential medications sent to [facility] today as he is leaving [facility]. Thank you documented in this encounter Plan of Treatment Not on file documented as of this encounter Visit Diagnoses Not on filedocumented in this encounter Care Teams Respiratory Technician Relationship Specialty Start Date End Date Unknown Pcp, Non Php PCP - General 03/01/25 documented as of this encounter
--- OUTSIDE RECORDS SUMMARY | 2025-03-10 08:35 | XMS_ITS | Clinical Summary ---
Author Organization [employer] it Address [address] [place] [address] Care Team Providers Care Landing Support Specialist Name Role Phone Zulema Golden Primary Care Provider [phone] Surgical History Surgery Date Site/Laterality Comments MASTECTOMY [...] Health Maintenance Due Date Last Done Comments DTaP,Tdap,and Td Vaccines (1 - Tdap) 2017 [...] age to complete this topic Care Teams Landing Support Specialist Relationship Specialty Start Date End Date Zulema Golden PA [address] [place] [phone] PCP - General Security Investigator 01/31/21
--- OUTSIDE RECORDS SUMMARY | 2025-03-10 08:35 | XMS_ITS | Encounter Summary ---
Author Organization [facility] Address [address] [place] [address] Care Team Providers Care Automatic Glove Turner And Former Name Role Phone Abad Mccann MD Primary Care Provider Zulema Golden Primary Care Provider [phone] Abad Mccann MD Unavailable [phone] Encounter Details Date Type Department Care Team (Late st Contact Info) Description 09/24/2017 Scanned Document [facility] Breast Care & Surgery [place] [address] [facility] [address] [place] [address] Sarah Sherman MD [address] [facility] [address] [place] [address] Social History Tobacco Use Types Packs/Day Years [...] on filedocumented in this encounter Care Teams Automatic Glove Turner And Former Relationship Specialty Start Date End Date Abad Mccann MD [address] [place], [place] [id number] PCP - General Family Medicine 10/09/16 10/28/20 Zulema Golden [address] [place] [address] PCP - General Internal Medicine 10/29/20 Abad Mccann MD [address] [place] [address] [address] Family Medicine 10/29/20 documented as of this encounter
--- OUTSIDE RECORDS SUMMARY | 2025-03-10 08:35 | XMS_ITS | Clinical Summary ---
Author Organization [facility] Address [address] [place] [address] Care Team Providers Care Taxicab Starter Name Role Phone Zulema Golden Primary Care Provider [phone] Abad Mccann MD Unavailable [phone] Allergies Active Allergy Reactions Criticality Noted Date Comments Gabapentin Other (See Comments) 08/22/2017 Hypotension and fever per patient Gabapentin Fever High 10/29/2020 Guanfacine Other (See Comments) 10/29/2020 Hypotension Guanfacine Other (See Comments) ,GI Intolerance/Nausea/Vomit ing Low 01/28/2018 Low blood pressure, dizziness Medications * This document contains information received from the source organization and may not represent a complete record from that organization. levothyroxine (SYNTHROID) 150 MCG tabletIndicatio ns:Hypothyroidi sm Take 150 mcg by mouth daily on an empty stomach Indications: Hypothyroidi sm. Active norethindrone-e thinyl estradiol (ORTHO-NOVUM 1-35 TAB,NORTREL 1-35 TAB) 1-35 MG-MCG per tabletIndicatio ns:Dysmenorrhea Take 1 tablet by mouth daily. Active albuterol (PROVENTIL HFA; VENTOLIN HFA) 108 (90 Base) MCG/ACT inhalerIndicati ons:Asthma Inhale 2 puffs 4 times daily (every 6 hours) as needed. Active traZODone (DESYREL) 100 MG tabletIndicatio ns:Insomnia Take 100 mg by mouth nightly. Active fluticasone-joao anterol (BREO ELLIPTA) 100-25 MCG/INH inhalerIndicati ons:Asthma Inhale 1 puff daily. Active methylphenidate (RITALIN [...] Albuterol Sulfate (VENTOLIN HFA IN) Inhale. Active fluticasone-joao anterol (BREO ELLIPTA) 100-25 MCG/INH inhaler Inhale 1 puff daily. 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 12/17/2017 Overview (12/17/2017): Added automatically from request for surgery [id number] Schizoaffective disorder, depressive type 2017 Resolved Problems [...] C Virus Screening 1998 HIV Screening 2011 DTaP/Tdap/Td Vaccines (1 - Tdap) 2017 Hepatitis B Vaccines (1 of 3 - 19+ 3-dose series) 2017 Pap Smear (Ages 21-65) 2019 COVID-19 Vaccine (3 - 2023- season) 2024 02/22/2021, 01/31/2021 Influenza Vaccine 05/20/2025 07/23/2022, , 07/06/2020, Additional history exists HPV Vaccines Aged Out No longer eligi ble based on patient's age to complete this topic Pneumococcal Vaccine: Pediatric (0-5 Years) and At-Risk Patients (6 to 49 Years) Aged Out No longer eligible based on patient's age to complete this topic Insurance [facility] PPO [employer]IG[employer] PPO [facility] [employer], [facility] Advance Directives * Full Code (Latest Code Status on File) Date Activated Date Inactivated Comments 01/29/2018 10:14 AM 02/23/2018 12:09 PM Question Answer Comments Decision Thoroughly Discussed with: Patient * Full Code Date Activated Date Inactivated Comments 11/12/2017 1:13 PM 01/29/2018 9:20 AM * Full Code Date Activated Date Inactivated Comments 01/10/2017 12:34 PM 01/13/2017 6:32 PM Care Teams Taxicab Starter Relationship Specialty Start Date End Date Zulema Golden [address] [place] [address] PCP - General Internal Medicine 10/29/20 Abad Mccann MD [address] [place] [address] Family Medicine 10/29/20
--- OUTSIDE RECORDS SUMMARY | 2025-03-10 08:35 | XMS_ITS | Encounter Summary ---
Author Organization [facility] Address [address] [place] [address] Care Team Providers Care Glove Maker Name Role Phone Unknown Pcp, Non Php Primary Care Provider Unava ilable Encounter Details Date Type Department Care Team ([facility] st Contact Info) Description 02/16/2024 Orders Only [facility] Primary [facility] [address] [place] [address] Zulema Golden PA [address] [facility] [address] [place] [address] Social History Tobacco Use Types Packs/Day Years [...] at . Any insurance accepted. Quit smoking resources-[email or web address].org HEMOGLOBIN A1C % < 7 Result Component [...] this encounter Procedures * Due to [place] [employer] law, this organization might not be sharing [...] in this encounter Results * Due to [facility] law, this organization might not be sharing negative HIV tests. * (ABNORMAL) T4, FREE, SERUM (02/16/2024 2:58 PM EDT) FT4 1.86(H) 0.70 - 1.80 ng/dL [facility] 02/16/2024 2:58 PM EDT 02/16/2024 9:53 PM EDT Narrative [facility] - 02/17/2024 1:44 AM EDT Testing Performed at: [facility], [address] [place] [address], [place] [address], , Executive Advisor: Sherice Auguste MD CL#[id number] us [facility] Final Resul t Performing Organization Address [facility] Co de Phone Number [facility] [address] [phone] * (ABNORMAL) THYROID STIMULATING HORMONE (TSH) WITH FREE T4 REFLEX, SERUM (02/16/2024 2:58 PM EDT) TSH (Thyrotropin) 0.42(L) 0.50 - 4.80 uIU/ml [facility] 02/16/2024 2:58 PM EDT 02/16/2024 9:53 PM EDT Narrative [facility] - 02/16/2024 10:58 PM EDT Track Order?->No Release result to patient->Immediate Testing Performed at: [email or web address], [address] [place] [address], , Executive Advisor: Sherice Auguste MD CL#[id number] [facility] Final Resul t Performing Organization Address [facility] Co de Phone Number [facility] [address] [phone] * HEMOGLOBIN A1C (02/16/2024 2:58 PM EDT) Hemoglobin A1C 5.8 4.3 - 6.1 %A1C [facility] Comment: 5.7-6.4 Increased Risk of Diabetes >6.4 Consistent with Diabetes The [place] Diabetes Association recommends a goal of less than 7% for diabetic patients. 02/16/2024 2:58 PM EDT 02/16/2024 9:53 PM EDT Narrative [facility] - 02/16/2024 10:22 PM EDT Track Order?->No Release result to patient->Immediate FASTING: NO Testing Performed at: [email or web address], [address] [place] [address], , Executive Advisor: Sherice Auguste MD CL#[id number] Zulema M Golden PA LABORATORY Final Resul t [facility] [address] [facility] [place] [address], documented in this encounter Visit Diagnoses Diagnosis Type 2 diabetes mellitus without complication, without long-term current use of insulin (HCC) Acquired hypothyroidism Unspecified hypothyroidism documented in this encounter Care Teams Glove Maker Relationship Specialty Start Date End Date Unknown Pcp, Non Php PCP - General 03/01/25 documented as of this encounter
== END 2025-03-10 09:08 | disposition home or self-care (01) ==
LOC: HO.HMCFM 08:24
PROVIDERS: PCP Physician Assistant; Visit Provider Physician Assistant
DX: E11.65 Type 2 diabetes mellitus with hyperglycemia (principal); I10 Essential (primary) hypertension; E78.5 Hyperlipidemia, unspecified; R79.89 Other specified abnormal findings of blood chemistry

== ENCOUNTER → 2025-03-10 08:24 | Outpatient (BNVA) | payer OTHER, SELFPAY | PROVIDERS: PCP Physician Assistant; Visit Provider Physician Assistant | DX: E11.65 Type 2 diabetes mellitus with hyperglycemia (principal); I10 Essential (primary) hypertension; E78.5 Hyperlipidemia, unspecified; R79.89 Other specified abnormal findings of blood chemistry; J45.909 Unspecified asthma, uncomplicated; F31.9 Bipolar disorder, unspecified; F25.9 Schizoaffective disorder, unspecified; F43.10 Post-traumatic stress disorder, unspecified; F90.9 Attention-deficit hyperactivity disorder, unspecified type; Z79.899 Other long term (current) drug therapy | CPT/HCPCS: 99212 ==

== ENCOUNTER 2025-06-22 14:04 | Outpatient (AMB) | payer OTHER, SELFPAY ==
--- OUTSIDE RECORDS SUMMARY | 2016-12-02 10:49 | XMS_ITS | Encounter Summary ---
Author Organization [facility] Address [address] [place] [address] Care Team Providers Care Forensic Economist Name Role Phone Abad Mccann MD Primary Care Provider Encounter Details Date Type Department Care Team ([facility] st Contact Info) Description 12/02/2016 9:49 AM EST Hospital Encounter [facility] IOL INTAKE [address] [place] [address] Dana Francis, DO [address] [place] [address] Social History Tobacco Use Types Packs/Day Years Used Date Smoking Tobacco: Former Smokeless Tobacco: Never Alcohol Use Standard Drinks/Week Comments Yes 0 (1 standard drink = 0.6 oz pur e alcohol) binge drink twice a month Comments Unknown Sex and Gender Information Value Date Recorded Sex Assigned at Female 06/22/2023 1:10 AM EDT Legal Sex Male 1:10 AM EDT Gender Identity Gender fluid 12/02/2022 10:43 PM EST Sexual Orientation Bisexual 12/02/2022 10 :43 PM EST Sexual Orientation Pansexual 12/02/2022 10 :43 PM EST COVID-19 Exposure Response Date Recorded In the last month, have you been in contact with someone who was confirmed or suspected to have Coronavirus / COVID-19? No / Unsure 10/29/2020 12:52 PM EST documented as of this encounter Plan of Treatment Not on file documented as of this encounter Visit Diagnoses Not on filedocumented in this encounter Care Teams Forensic Economist Relationship Specialty Start Date End Date Abad Mccann MD [address] [place] [address] PCP - General Family Medicine 10/09/16 10/28/20 documented as of this encounter
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
[2025-06-22 14:13] VITALS: BP 108/62; PULSE 95; RESP 14; TEMP 36.4; O2SAT 97; BMI 44.0
--- OUTSIDE RECORDS SUMMARY | 2025-06-22 16:20 | XMS_ITS | Encounter Summary ---
Author Organization [facility] Address [address] [place] [address] Care Team Providers Care Clinical Staff Rn Name Role Phone Unknown Pcp, Non Php Primary Care Provider Unava ilable Encounter Details Date Type Department Care Team ([facility] st Contact Info) Description 02/16/2024 Orders Only [facility] Primary Care [address] [place] [address] Zulema Golden PA [address] [facility] [address] [place] [address] Social History Tobacco Use Types Packs/Day Years [...] often more reliable than measurements at the doctor s office. You can also improve your [...] at . Any insurance accepted. Quit smoking resources-http://[employer]ompium.org HEMOGLOBIN A1C % < 7 Result Component [...] of this encounter Procedures * Due to [place] [employer] law, this organization might not be sharing [...] in this encounter Results * Due to [place] [employer] law, this organization might not be sharing negative HIV tests. * (ABNORMAL) T4, FREE, SERUM (02/16/2024 2:58 PM EDT) FT4 1.86(H) 0.70 - 1.80 ng/dL [facility] 02/16/2024 2:58 PM EDT 02/16/2024 9:53 PM EDT Narrative [facility] - 02/17/2024 1:44 AM EDT Testing Performed at: [facility], [address] [place] [address], [place] [address], , Wealth Management Consultant: Sherice Auguste MD CL#[id number] [facility] Final Resul t Performing Organization Address [facility] Co de Phone Number [facility] [address] [phone] * (ABNORMAL) THYROID STIMULATING HORMONE (TSH) WITH FREE T4 REFLEX, SERUM (02/16/2024 2:58 PM EDT) TSH (Thyrotropin) 0.42(L) 0.50 - 4.80 uIU/ml [facility] 02/16/2024 2:58 PM EDT 02/16/2024 9:53 PM EDT Narrative [facility] - 02/16/2024 10:58 PM EDT Track Order?->No Release result to patient->Immediate Testing Performed at: [facility], [address] [place] [address], , Wealth Management Consultant: Sherice Auguste MD CL#[id number] [facility] Final Resul t Performing Organization Address [facility] Co de Phone Number [facility] [address] [phone] * HEMOGLOBIN A1C (02/16/2024 2:58 PM EDT) Hemoglobin A1C 5.8 4.3 - 6.1 %A1C [facility] Comment: 5.7-6.4 Increased Risk of Diabetes >6.4 Consistent with Diabetes The [place] Diabetes Association recommends a goal of less than 7% for diabetic patients. 02/16/2024 2:58 PM EDT 02/16/2024 9:53 PM EDT Narrative [facility] - 02/16/2024 10:22 PM EDT Track Order?->No Release result to patient->Immediate FASTING: NO Testing Performed at: [facility], [address] [place] [address], , Wealth Management Consultant: Sherice Auguste MD CL#[id number] [facility] Final Resul t [facility] [address] [place] [address], documented in this encounter Visit Diagnoses Diagnosis Type 2 diabetes mellitus without complication, without long-term current use of insulin (HCC) Acquired hypothyroidism Unspecified hypothyroidism documented in this encounter Care Teams Clinical Staff Rn Relationship Specialty Start Date End Date Unknown Pcp, Non Php PCP - General 03/01/25 documented as of this encounter
--- OUTSIDE RECORDS SUMMARY | 2025-06-22 16:20 | XMS_ITS | Encounter Summary ---
Author Organization [facility] Address [address] [address] Care Team Providers Care Stack Attendant Name Role Phone Abad Mccann MD Primary Care Provider Zulema Golden Primary Care Provider [phone] Abad Mccann MD Unavailable [phone] Encounter Details Date Type Department Care Team (Late st Contact Info) Description 09/24/2017 Scanned Document [facility] Breast Care & Surgery [place] [address] [facility] [address] [place] [address] Sarah Sherman MD [address] [facility] [address] [place] [address] Social History Tobacco Use Types Packs/Day Years [...] on filedocumented in this encounter Care Teams Stack Attendant Relationship Specialty Start Date End Date Abad Mccann MD [address] [place], [place] [id number] PCP - General Family Medicine 10/09/16 10/28/20 Zulema Golden [address] [place] [address] PCP - General Internal Medicine 10/29/20 Abad Mccann MD [address] [place] [address] [address] Family Medicine 10/29/20 documented as of this encounter
--- OUTSIDE RECORDS SUMMARY | 2025-06-22 16:20 | XMS_ITS | Encounter Summary ---
Author Organization [facility] Address [address] [place] [address] Care Team Providers Care Baseboard Heating Installer Name Role Phone Unknown Pcp, Non Php Primary Care Provider Unava ilable Reason for Visit * Reason Comments Aou Program Encounter Details Date Type Department Care Team ([facility] st Contact Info) Description 10/04/[address] [phone] Abi Oliva, Tech [address] [place] [id number] Aou Program Social History Tobacco Use Types Packs/Day Years Used Date Smoking Tobacco: Never Assessed PHQ-2 Answer Date Recorded PHQ-2 Score 0 [...] nuts. Quit smoking / using tobacco Lifestyle Zulema Daniel PA Note: Smoking can cause cancer, heart [...] at . Any insurance accepted. Quit smoking resources-http://makesmoCondomanihistory.org HEMOGLOBIN A1C % < 7 Result Component [...] is ideal. documented as of this encounter Visit Diagnoses Not on filedocumented in this encounter Care Teams Baseboard Heating Installer Relationship Specialty Start Date End Date Unknown Pcp, Non Php PCP - General 03/01/25 documented as of this encounter
--- OUTSIDE RECORDS SUMMARY | 2025-06-22 16:20 | XMS_ITS | Clinical Summary ---
Author Organization [facility] Address [address] [place] [id number] Care Team Providers Care Aix System Administrator Name Role Phone Zulema Golden Primary [...] 90 06/23/2022 8:11 PM EDT Temperature 37.2 C (99 F) 06/23/2022 8:11 PM EDT Respiratory Rate 16 [...] season) 2024 02/22/2021, 01/31/2021 Influenza Vaccine (#1) 2025 07/22/2013 Pneumococcal Vaccine Aged Out No long er eligible based on patient's age to complete this topic RSV Ped < 20 months Aged Out No longe r eligible based on patient's age to complete this topic Care Teams Aix System Administrator Relationship Specialty Start Date End Date Zulema Golden PA [address] [place] [id number] PCP - General Electorate Officer 01/31/21
--- OUTSIDE RECORDS SUMMARY | 2025-06-22 16:20 | XMS_ITS | Clinical Summary ---
Author Organization [facility] Address [address] [place] [address] Care Team Providers Care Couples Therapist Name Role Phone Unknown Pcp, Non Php Primary Care Provider Unava ilable Allergies Active Allergy Reactions Criticality Noted Date Comments Gabapentin 02/26/2019 [facility] Comment: [id number]: fever Guanfacine Hcl Er 02/26/2019 [facility] Comment: [id number]: hypotensive Medications Escitalopram Oxalate (LEXAPRO) 20 MG [...] EVERY DAY. 90 tablet 2 4 Active Albuterol (Ventolin HFA) 90 mcg/ACT inhaler INHALE 1 TO 2 PUFFS BY MOUTH FOUR TIMES DAILY NEEDED. 18 each 4 Active Lisinopril (PRINIVIL,ZESTRIL) 10 MG tabletIndications:P rimary hypertension Take one tablet (10 mg total) by mouth 1 (one) time each day. 90 tablet 2 4 06/10/20 25 Rosuvastatin Calcium (Crestor) 10 MG tabletIndications:M ixed hyperlipidemia Take one tablet (10 mg total) by mouth 1 (one) time each day. 90 tablet 2 4 06/10/20 25 Active Problems Problem Noted Date Diagnosed Date [...] Encounter for immunization 08/01/2021 Skin lesion 07/20/2021 APTTI (iron deficiency anemia) 02/26/2019 Schizoaffective disorder 02/26/2019 [...] Encounters Date Type Department Care Team Description 06/21/2025 Refill [facility] [address] [place] [phone] Zulema Golden PA E-prescribing Refill Request from Last 3 Months Immunizations Immunization Administration Dates Next Due COVID-19, mRNA (Pfizer [...] 84 01/16/2024 2:42 PM EDT Temperature 36.6 C (97.9 F) 01/16/2024 2:42 PM EDT Respiratory Rate 18 01/16/2024 2:42 PM EDT [...] Pneumococcal (1 of 2 - PCV) 2017 HA1C 08/17/2024 02/16/2024, 03/0 04/2024, 03/25/2022, Additional history exists LDL Cholesterol 12/24/2024 12/25/2023, 06/0 03/2022, 03/25/2022, Additional history exists Microalbumin 12/24/2024 12/25/2023 COVID-19 Vaccine ( season) 2025 02/22/2021, 01/31/2021 Influenza (#1) 2025 07/23/2022, 10/0 10/2020, 07/06/2020, Additional history exists GFR 05/08/2026 05/08/2025, 03/0 04/2024, 06/23/2022, Additional history exists DTaP/Tdap/Td (2 - Td or Tdap) 02/26/2029 02/26/2019 Zoster (Shingrix) (1 of 2) 02/22/2048 PPD Discontinued 05/20/2019, 05/18/2019 Hep A Aged Out 11/19/2019, 05/22, 05/18/2019 No longer eligible based on patient's age to complete this topic Hep B Completed 11/19/2019, 05/22, 05/18/2019 Hepatitis C Screening Completed 12/07/2021 Physical Discontinued 03/19/2022, 02/26/2019 HPV Vaccine (No Doses Required) Completed Hib Aged Out No longer eligi ble [...] at . Any insurance accepted. Quit smoking resources-http://makesmoTravelnuts.org HEMOGLOBIN A1C % < 7 Result Component [...] 120 is ideal. Procedures * Due to [employer] law, this organization might not be sharing [...] to Health Maintenance Results * Due to [employer] law, this organization might not be sharing negative HIV tests. * HEMOGLOBIN A1C (02/16/2024 2:58 PM EDT) Hemoglobin A1C 5.8 4.3 - 6.1 %A1C [facility] Comment: 5.7-6.4 Increased Risk of Diabetes >6.4 Consistent with Diabetes The [place] [employer] recommends a goal of less than 7% for diabetic patients. 02/16/2024 2:58 PM EDT 02/16/2024 9:53 PM EDT Narrative [facility] - 02/16/2024 10:22 PM EDT Track Order?->No Release result to patient->Immediate FASTING: NO Testing Performed at: [facility], [address] [place] [address], , Final Assembly And Packing Supervisor: Sherice Auguste MD CL#[id number] [facility] Final Resul t Performing Organization Address [facility] de Phone Number [facility] [address] [place] [address], * ALBUMIN (MICROALBUMIN), RANDOM URINE, WITH CREATININE (12/25/2023 2:18 PM EST) Albumin (Urine) 8 0 - 23 mg/L [facility] Creatinine (Urine) 168 60 - 200 mg/dL [facility] 12/25/2023 2:18 PM EST 12/25/2023 6:07 PM EST Narrative [facility] - 12/25/2023 9:26 PM EST Microalbumin<12.0, Alb/Creat Ratio Invalid Testing Performed at: [facility], [address] [place] [address], , Final Assembly And Packing Supervisor: Sherice Auguste MD CL#[id number] [facility] Final Resul t Performing Organization Address [facility] de Phone Number [facility] [address] [place] [address], * (ABNORMAL) LIPID PANEL WITH REFLEX TO DIRECT LDL (12/25/2023 2:18 PM EST) Cholesterol 233(H) 0 - 199 mg/dL [facility] Triglyceride 204(H) 0 - 150 mg/dL [facility] VLDL Cholesterol 41(H) 5 - 40 mg/dL [facility] HDL Cholesterol 44(L) 50 - 80 mg/dL [facility] LDL Cholesterol 148(H) 0 - 100 mg/dL [facility] Cholesterol Non-HDL 189(H) 0 - 130 mg/dl [facility] CHOL/HDL Ratio 5.2 [facility] 12/25/2023 2:18 PM EST 12/25/2023 6:07 PM EST Narrative [facility] - 12/25/2023 6:54 PM EST FASTING: NO Fasting reference interval. [employer] Lipid testing results require a 12 hour fasting specimen. Use caution when interpreting non-fasting cholesterol and triglyceride results. Testing Performed at: [facility], [address] [place] [address], , Final Assembly And Packing Supervisor: Sherice Auguste MD CL#[id number] [facility] Final Resul t [facility] [address] [place] [address]. [place] [address], * (ABNORMAL) COMPREHENSIVE METABOLIC PANEL WITH GFR (12/25/2023 2:18 PM EST) Glucose 76 65 - 99 mg/dL [facility] Comment:Fasting Reference In terval Urea Nitrogen Blood (BUN) 12 6 - 20 mg/dL [facility] Creatinine 0.9 0.4 - 1.1 mg/dL [facility] GFR 121 >=60 [facility] Comment: Units of measure for estimated Glomular Filtration Rate: mL/min/1.73m2. eGFR calculation is only valid for adults 18-85 years of age. Stages of Chronic Kidney Disease Stage GFR 3 30-59 4 15-29 5 <15 Sodium 140 133 - 145 mmol/L [facility] Potassium 4.7 3.3 - 5.3 mmol/L [facility] Chloride 96 96 - 108 mmol/L [facility] Bicarbonate 29 22 - 32 mmol/L [facility] Anion gap 3 15 [facility] Calcium 9.3 8.6 - 10.5 mg/dL [facility] Protein Total (Serum) 7.5 6.2 - 8.2 g/dL [facility] Albumin 4.6 3.5 - 5.2 g/dl [facility] Alkaline phosphatase 108(H) 35 - 105 U/L [facility] AST (SGOT) 20 4 - 32 U/L [facility] ALT (SGPT) 20 4 - 33 U/L [facility] Bilirubin Total 0.3 0.1 - 1.0 mg/dL [facility] Globulin 2.9 1.4 - 4.8 g/dl [facility] Albumin/Globulin 2 1 - 3 [facility] Osmolality 269 253 - 285 mOsm/kg [facility] BUN/Creatinine Ratio 13 6 - 25 [facility] 12/25/2023 2:18 PM EST 12/25/2023 6:07 PM EST Narrative [facility] - 12/25/2023 8:08 PM EST FASTING: NO Testing Performed at: [facility], [address] [place] [address], , Final Assembly And Packing Supervisor: Sherice Auguste MD CL#[id number] [facility] Final Resul t Performing Organization Address [facility] de Phone Number [facility] [address] [place] [address], * HEPATITIS C ANTIBODY W/ REFLEX TO [...] 12/07/2021 7:33 PM EST Testing Performed at: [facility], [address] [place] [address], , Final Assembly And Packing Supervisor: Sherice Auguste MD CL#[id number] [facility] Final Resul t Performing Organization Address [facility] Co de Phone Number PHCT CONVERSIONS * PPD SKIN TEST (05/20/2019 5:22 PM EDT) # OF MM INDURATION (NOT REDNESS) 0 [facility] CONVERSIONS 05/20/2019 5:22 PM EDT Jann Hastings MD PROCEDURES Final Result PHCT CONVERSIONS from Last 3 Months or Most Recently Relevant to Health Maintenance Insurance [facility] PPO Care Teams Couples Therapist Relationship Specialty Start Date End Date Unknown Pcp, Non Php PCP - General 03/01/25
--- OUTSIDE RECORDS SUMMARY | 2025-06-22 16:20 | XMS_ITS | Clinical Summary ---
Author Organization [facility] Address [address] [facility] [address] [place] [phone] Phone Care Team Providers Care Brake Linings Coater Name Role Phone Pcp, Unknown Primary Care Provider Unavailabl e Allergies Active Allergy Reactions Criticality Noted Date Comments Gabapentin Fever Medium 07/28/2024 Guanfacine Hypotension Medium 07/28/2024 Medications lisinopril (PRINIVIL,ZESTRI L) 10 MG tablet Take 10 mg by mouth daily. Active levothyroxine (SYNTHROID, LEVOTHROID) 175 MCG tablet Take 175 mcg by mouth every morning. Active escitalopram oxalate (LEXAPRO) 20 MG tablet Take 20 mg by mouth daily. Active albuterol 90 mcg/actuation inhaler Inhale 2 puffs into the lungs every 6 (six) hours as needed for wheezing. Active dextroamphetamin e-amphetamine (ADDERALL) 7.5 mg Tab tablet Take 7.5 mg by mouth daily. Active rosuvastatin (CRESTOR) 10 MG tablet Take 10 mg by mouth daily. Active Social History Tobacco Use Types Packs/Day Years Used Date Smoking Tobacco: Former Cigarettes Passive Smoke Exposure: Never Smokeless Tobacco: Current Tobacco Cessation:Ready to Q uit: Not Asked; Counseling Given: Not Answered Alcohol Use Standard Drinks/Week Comments Yes 0 (1 standard drink = 0.6 oz pur e alcohol) rarely Education Answer Date Recorded Are you interested in more education? Not on diamond e 09/19/2024 Are you concerned about learning? Not on file 09/19/2024 No 09/19/2024 No 09/19/2024 Digital Access Answer Date Recorded No 09/19/2024 No 09/19/2024 Reliable internet access at home? Not on file 09/19/2024 Device with a working camera? Not on file Intimate Partner Violence Answer Date R ecorded Are you denied basic needs s uch as food, clothing, or medical care? No 10/25/2024 In the past 12 months have y ou been in a relationship with a person who hurts, threatens, or tries to control you? No 10/25/2024 Are you denied basic needs s uch as food, clothing, or medical care? No 10/25/2024 In the past 12 months have y ou been in a relationship with a person who hurts, threatens, or tries to control you? No 10/25/2024 Comments No Sex and Gender Information Value Date Recorded Sex Assigned at Choose not to disclose 06/2024 11:25 PM EDT Legal Sex Female 9:58 PM EDT Gender Identity Male 07/28/2024 10:41 PM EDT Sexual Orientation Choose not to disclose 2023 11:25 PM EDT Last Filed Vital Signs Vital Sign Reading Time Taken Comments Blood Pressure 117/81 10/25/2024 12:42 AM EST Pulse 97 10/25/2024 12:42 AM EST Temperature 36.8 C (98.2 F) 10/25/2024 12:42 AM EST Respiratory Rate 19 10/25/2024 12:42 AM EST Oxygen Saturation 96% 10/25/2024 12:42 AM EST Inhaled Oxygen Concentration - - Weight 124.7 kg (275 lb) 10/25/2024 12:42 AM EST Height 165.1 cm (5' 5 ) 10/25/2024 12:42 AM EST Body Mass Index 45.76 10/25/2024 12:42 AM EST Plan of Treatment Health Maintenance Due Date Last Done Comments CREATININE LEVEL 1998 POTASSIUM LEVEL 1998 DEPRESSION SCREENING 2010 SMOKING Hx and SMOKELESS TOBACCO SCREENING 2011 HEPATITIS C SCREENING 02/22/2016 HIV ONE-TIME SCREENING (18-6 5 YEARS) 02/22/2016 PNEUMOCOCCAL VACCINES (0-49 years) (1 of 2 - PCV) 2017 PAP SMEAR 2019 TSH LEVEL 02/15/2025 02/16/2024, 12/25/2023, 08/13/2021 INFLUENZA VACCINE (#1) 2025 COVID-19 VACCINE (2023-2 5 season) 2025 Adult Td,Tdap Booster 02/26/2029 02/26/2019 HEPATITIS A VACCINES Aged Out No long er eligible based on patient's age to complete this topic HIB VACCINES Aged Out No longer eligi ble based on patient's age to complete this topic MENINGOCOCCAL VACCINES (ACWY) Aged Out No longer eligible based on patient's age to complete this topic MENINGOCOCCAL VACCINES (B) Aged Out N o longer eligible based on patient's age to complete this topic Medical Devices Not on file Insurance ACO ACO ACO ACO ACO ACO Care Teams Brake Linings Coater Relationship Specialty Start Date End Date Pcp, Unknown PCP - General 10/25/24 Additional Source Comments The information contained in this document represents components of the legal health record. It is not the complete legal health record.[facility]
--- OUTSIDE RECORDS SUMMARY | 2025-06-22 16:20 | XMS_ITS | Encounter Summary ---
Author Organization [facility] Address [address] [place] [address] Care Team Providers Care Tool Engine Lathe Set Up Operator Name Role Phone Unknown Pcp, Non Php Primary Care Provider Unava ilable Reason for Visit * Reason Comments Results Encounter Details Date Type Department Care Team ([facility] st Contact Info) Description 12/26/2023 Telephone [facility] [address] [place] [phone] Zulema Golden PA [address] [facility] [address] [place] [address] Results Social History Tobacco Use Types Packs/Day [...] would like any potential medications sent to [facility] today as he is leaving [facility] for [facility] emergency. Thank you documented in this encounter Plan of Treatment Not on file documented as of this encounter Visit Diagnoses Not on filedocumented in this encounter Care Teams Tool Engine Lathe Set Up Operator Relationship Specialty Start Date End Date Unknown Pcp, Non Php PCP - General 03/01/25 documented as of this encounter
--- OUTSIDE RECORDS SUMMARY | 2025-06-22 16:20 | XMS_ITS ---
Author Name [facility] Organization Unknown Results Test Name/Text Value Interpretation Date Range Source Squamous #/area UrnS HPF >20.0 /HPF Above high normal 05/08/2025 0 - 5 [facility] WBC #/area UrnS HPF >20.0 /HPF Above high normal 05/08/2025 0 - 5 [facility] RBC #/area UrnS HPF 0.0 /HPF 05/08/2025 0 - 3 [facility] Bacteria #/area UrnS HPF 4+ Abnormal 05/08/2025 - [facility] pH Ur 8.0 pH 05/08/2025 5 - 8 [facility] Prot Ur Strip-mCnc Negative 05/08/2025 - [facility] Sp Gr Ur 1.015 05/08/2025 1.005 - 1.03 [facility] Nitrite Ur Ql Negative 05/08/2025 - [facility] Ketones Ur-mCnc Negative 05/08/2025 - [facility] Glucose Ur Ql Negative 05/08/2025 - [facility] Clarity Ur Slightly Cloudy Abnormal 05/08/2025 - [facility] Color Ur Yellow 05/08/2025 - [facility] Hgb Ur Ql Negative 05/08/2025 - [facility] Leukocyte esterase Ur Ql Strip Small Abnormal 05/08/2025 - [facility] Magnesium SerPl-mCnc 1.9 mg/dL 05/08/2025 1.7 - 2.8 [facility] HCG SerPl Ql Negative 05/08/2025 - [facility] Chloride SerPl-sCnc 102.0 mmol/L 05/08/2025 98 - 1 07 [facility] ALT SerPl-cCnc 18.0 unit/L 05/08/2025 7 - 52 [facility] Bilirub SerPl-mCnc 0.4 mg/dL 05/08/2025 0.3 - 1 [facility] BUN SerPl-mCnc 10.0 mg/dL 05/08/2025 7 - 20 [facility] BUN/Creat SerPl 10.8 Below low normal 05/08/2025 12 - 2 0 [facility] Anion Gap SerPl Calc-sCnc 8.0 05/08/2025 5 - 14 [facility] Creat SerPl-mCnc 0.93 mg/dL 05/08/2025 0.5 - 1.3 C [facility] eGFRcr SerPlBld CKD-EPI 2020 87.0 mL/min/1.73m2 [facility] CO2 Ser[facility]-sCnc 27.0 mmol/L 05/08/2025 24 - 32 [facility] Prot SerPl-mCnc 7.5 g/dL 05/08/2025 6.4 - 8.5 [facility] Potassium SerPl-sCnc 3.4 mmol/L Below low normal 05/08/2025 3.5 - 5.1 [facility] Glucose SerPl-mCnc 75.0 mg/dL 05/08/2025 70 - 199 [facility] AST SerPl-cCnc 15.0 unit/L 05/08/2025 5 - 40 [facility] Albumin SerPl-mCnc 4.3 g/dL 05/08/2025 3.5 - 5 [facility] Calcium SerPl-mCnc 8.7 mg/dL 05/08/2025 8.4 - 10.2 [facility] ALP SerPl-cCnc 84.0 unit/L 05/08/2025 34 - 104 [facility] Sodium SerPl-sCnc 137.0 mmol/L 05/08/2025 135 - 14 5 [facility] Lipase SerPl-cCnc 27.0 unit/L 05/08/2025 11 - 82 [facility] WBC # Bld Auto 10.9 K/mcL Above high normal 05/08/2025 4 - [address]5 [facility] Neutrophils # Bld Auto 5.95 K/mcL 05/08/2025 1.8 - 7.8 [facility] RBC Auto 88.5 FL 05/08/2025 78 - 100 [facility] Hgb Bld-mCnc 13.3 g/dL 05/08/2025 12.5 - 18 [facility] Platelet # Bld Auto 479.0 K/mcL Above high normal 05/08/2025 150 - 450 [facility] Eosinophil # Bld Auto 0.34 K/mcL 05/08/2025 0 - 0.5 [facility] PMV Bld Auto 8.7 FL 05/08/2025 7.4 - 11.4 [facility] Neutrophils NFr Bld Auto 54.6 % 05/08/2025 44 - 74 [facility] MCHC RBC Auto-EntMCnc 32.0 g/dL 05/08/2025 32 - 36 [facility] RDW RBC Auto 13.4 % 05/08/2025 12.1 - 17.7 [facility] Hct VFr Bld Auto 41.5 % 05/08/2025 37 - 54 [facility] Lymphocytes NFr Bld Auto 38.3 % 05/08/2025 20 - 48 [facility] Monocytes # Bld Auto 0.36 K/mcL 05/08/2025 0 - 0.8 [facility] Basophils # Bld Auto 0.04 K/mcL 05/08/2025 0 - 0.2 [facility] RBC # Bld Auto 4.69 M/mcL 05/08/2025 4.2 - 6 [facility] MCH RBC Qn Auto 28.4 pcg 05/08/2025 25 - 33 [facility] Lymphocytes # Bld Auto 4.17 K/mcL Above high normal 05/08/2025 1 - 3.2 [facility] Monocytes NFr Bld Auto 3.3 % 05/08/2025 2 - 12 [facility] Eosinophil NFr Bld Auto 3.1 % 05/08/2025 0 - 6 [facility] Basophils NFr Bld Auto 0.4 % 05/08/2025 0 - 2 [facility] History of Medication Use Medication Directions Dispensed Refills Start Date End Date Status iopamidoL (ISOVUE-370) 370 mg iodine /mL (76 %) injection 100 mL 100 mL, intravenous, Once in imaging, Starting on 05/08/25 at 0140, For 1 dose 5 05/08/20 completed ondansetron (PF) (ZOFRAN) injection 4 mg 4 mg, intravenous, Once, On 05/08/25 at 0041, For 1 dose 5 05/08/20 completed potassium chloride (KLOR-CON M10) CR tablet 40 mEq 40 mEq, oral, Once, On 05/08/25 at 0301, For 1 dose, Tablet may be swallowed whole (do not crush/chew/suck on) OR broken in half and each half swallowed separately OR dissolved (whole tablet) in ~4 ounces of water (allow ~2 minutes to dissolve, stir well and administer immediately). 5 05/08/20 completed sodium chloride 0.9 % bolus 1,000 mL 1,000 mL, intravenous, at 2,000 mL/hr, Administer over 30 Minutes, Once, On 05/08/25 at 0041, For 1 dose 5 05/08/20 completed sulfamethoxazole-tri methoprim (BACTRIM DS,SEPTRA DS) 800-160 mg per tablet 1 tablet 1 tablet, oral, Once, On 05/08/25 at 0301, For 1 dose, Indication: Urinary Tract/Genitourinary 5 05/08/20 completed Trulicity 0.75 mg/0.5 mL pen injector injection INJECT 0.75 MG (0.5 ML) SUBCUTANEOUSLY WEEKLY 5 active lisinopriL (PRINIVIL,ZESTRIL) 20 mg tablet Take 1 tablet (20 mg total) by mouth 1 (one) time each day. 5 active omeprazole (PriLOSEC) [address] capsule Take 1 capsule (20 mg total) by mouth 1 (one) time each day. 5 active albuterol HFA (PROAIR HFA ; PROVENTIL HFA ; VENTOLIN HFA) 90 mcg/actuation inhaler 4 active metFORMIN HCl - 500 MG Oral Tablet metFORMIN HCl - 500 MG Oral TabletTAKE 1 TABLET Every twelve hours (NEED LABS COMPLETED FOR FURTHER MED RENEWALS) Quantity: 28 Refills: EugeniaZulema Golden PA-C Start : [id number] 2 completed ARIPiprazole 5 MG Oral Tablet ARIPiprazole 5 MG Oral TabletTAKE 1 TABLET DAILY. Refills: 0 Start : [id number] 9 completed Breo Ellipta 200-25 MCG/INH AEPB Breo Ellipta 200-25 MCG/INH AEPBINHALE 1 PUFF BY MOUTH ONCE A DAY Quantity: 180 Refills: SaranZulema fernandez PA-C Start : [id number] 9 completed escitalopram (LEXAPRO) 20 mg tablet TAKE 1 TABLET BY MOUTH EVERY DAYFILL 07/21 9 active Levothyroxine Sodium 175 MCG Oral Tablet Levothyroxine Sodium 175 MCG Oral TabletTAKE 1 TABLET BY MOUTH EVERY DAY PLEASE GET BLOODWORK DONE AND MAKE APPOINTMENT Quantity: 14 Refills: EugeniaZulema Golden PA-C Start : [id number] 9 completed Methylphenidate HCl ER (LA) 40 MG Oral Capsule Extended Release 24 Hour Methylphenidate HCl ER (LA) 40 MG Oral Capsule Extended Release 24 HourTAKE ONE CAPSULE EVERY DAY Quantity: 30 Refills: EugeniaZulema Golden PA-C Start : [id number] 9 completed levothyroxine (SYNTHROID, LEVOTHROID) 175 mcg tablet Take 1 tablet (175 mcg total) by mouth 1 (one) time each day. active rosuvastatin (CRESTOR) 10 mg tablet Take 1 tablet (10 mg total) by mouth 1 (one) time each day. active Allergies Allergen Reaction Severity Comment Documented Date Source Statu s METFORMIN OTHER Patient reports hypoglycemia [facility] GUANFACINE OTHER Low blood pressure, dizziness,Hypoten mark, ,guanfacine,Dizzi ness. Low blood pressure 01/28/2018 [facility] active GABAPENTIN FEVEROTHER [facility] GABAPENTIN CAPS [facility] GUANFACINE HCL ER TB24 [facility] Problems Problem Status Onset Date Problem Type Date of Resolution Source Fatty liver active EncounterDiagnosisAct [facility] UTI (urinary tract infection), uncomplicated active EncounterDiagnosisAct [facility] Asthma active 2022-07-23 ProblemAct [facility] Mental disorder active 2022-07-[address] [facility] Schizoaffective schizophrenia active 2022-07-23 ProblemAct [facility] Type 2 diabetes mellitus active 2022-07-23 ProblemAct [facility] Hypothyroidism active 2022-07-23 ProblemAct [facility] Immunizations Vaccine Date Source Lot Number Status Flucelvax Quadrivalent 0.5 M L Intramuscular Suspension Prefilled Syringe 07/20/2021 [facility] [id number] com pleted Flucelvax Quadrivalent 0.5 M L Intramuscular Suspension Prefilled Syringe 07/20/2021 [facility] [id number] com pleted Fluzone Quadrivalent 0.5 ML Intramuscular Suspension Prefilled Syringe 07/06/2020 [facility] [id number] com pleted Fluzone Quadrivalent 0.5 ML Intramuscular Suspension Prefilled Syringe 07/06/2020 [facility] [id number] com pleted Twinrix 720-20 Intramuscular Suspension 11/19/2019 [facility] 3597p completed Twinrix 720-20 Intramuscular Suspension 11/19/2019 [facility] 3597p completed Twinrix 720-20 Intramuscular Suspension 06/18/2019 [facility] 3597p completed Twinrix 720-20 Intramuscular Suspension 06/18/2019 [facility] 3597p completed Hepatitis A and Hepatitis B vaccine 05/18/2019 [facility] 3597P completed Hepatitis A and Hepatitis B vaccine 05/18/2019 [facility] 3597P completed Adacel 5-2-15.5 LF-MCG/0.5 I ntramuscular Suspension 02/26/2019 [facility] [id number] completed Adacel 5-2-15.5 LF-MCG/0.5 I ntramuscular Suspension 02/26/2019 [facility] [id number] completed Encounters Encounter Type Encounter Reason Primary Diagnosis Location Date Emergency abd pain, blood in stool,diarrhea Urinary tract infection, site not specified [facility] 05/08/2025 [facility]ulatory [facility] 06/2025 Ambulatory [facility] 10/07/2024 [facility] 07/23/2022 Care Team Organization Name Specialty Phone Email Start Date End [facility] 05/08[facility] 05[facility]08/2025 [facility] 07[facility]20/2024 [facility] 07/12/2024 [facility] 06/22/2024 [facility] ([facility] 02/17/2024 [facility] 05/01/2023 [facility] 07/24/2022 [facility] 07/23/2022 07/23/2022 [facility] 07/16/2021 11/20/2021
--- OUTSIDE RECORDS SUMMARY | 2025-06-22 16:20 | XMS_ITS | Encounter Summary ---
Author Organization [facility] Address [address] [place] [address] Care Team Providers Care Document Reviewer Name Role Phone Abad Mccann MD Primary Care Provider Zulema Golden Primary Care Provider [phone] Abad Mccann MD Unavailable [phone] Encounter Details Date Type Department Care Team (Late st Contact Info) Description 09/24/2017 Scanned Document [facility] [place] [address] [facility] [address] [place] [address] Sarah Sherman MD [address] [facility] [address] [place] [address] Social History Tobacco Use Types Packs/Day Years [...] on filedocumented in this encounter Care Teams Document Reviewer Relationship Specialty Start Date End Date Abad Mccann MD [address] [place], [place] [id number] PCP - General Family Medicine 10/09/16 10/28/20 Zulema Golden [address] [place] [address] PCP - General Internal Medicine 10/29/20 Abad Mccann MD [address] [place] [address] [address] Family Medicine 10/29/20 documented as of this encounter
--- OUTSIDE RECORDS SUMMARY | 2025-06-22 16:20 | XMS_ITS | Clinical Summary ---
Author Organization [facility] Address [address] [place] [address] Care Team Providers Care Electric Motor Tester Assembler Name Role Phone Zulema Golden Primary Care [...] Gender dysphoria 12/30/2019 Schizoaffective disorder, depressive type ([facility]) 11/12/2017 Immunizations Immunization Administration Dates Next [...] 91 08/07/2021 10:05 AM EDT Temperature 36.5 C (97.7 F) 08/07/2021 10:05 AM EDT Respiratory Rate 16 12/30/2019 10:4 [...] 2024 02/22/2021, 01/31/2021 Influenza Vaccine (#1) 2025 HIB Vaccines Aged Out No longer eligi ble based on patient's age to complete this topic HPV Vaccines (No Doses Required) Completed Hepatitis A Vaccines Aged Out No long [...] ID:Not on file Type:Not on file Address: [address] Care Teams Electric Motor Tester Assembler Relationship Specialty Start Date End Date Zulema Golden PA [address] [facility] [address] [place] [address] PCP - General Internal Medicine 12/30/19
--- OUTSIDE RECORDS SUMMARY | 2025-06-22 16:20 | XMS_ITS | Encounter Summary ---
Author Organization [facility] Address [address] [place] [address] Care Team Providers Care Chain Maker Machine Name Role Phone Unknown Pcp, Non Php Primary Care Provider Unava ilable Reason for Visit * Reason Comments E-prescribing Refill Request Encounter Details Date Type Department Care Team (Late st Contact Info) Description 06/21/2025 Refill [facility] [address] [place] [address] Zulema Golden PA [address] [facility] [address] [place] [address] E-prescribing Refill Request Social History Tobacco Use Types Packs/Day Years [...] PM EST Gender Identity Genderqueer or Non-binary 03/06/ 2024 1:55 PM EST Sexual Orientation Bisexual 12/24/2023 1: 55 PM EST documented as of this encounter Miscellaneous Notes * Telephone Encounter - Georges Callahan RN - 06/21/2025 4:18 PM EDT Per telephone encounter 02/25/25 pt transferred out documented in this encounter Plan of Treatment [...] at . Any insurance accepted. Quit smoking resources-[email or web address] HEMOGLOBIN A1C % < 7 Result Component [...] documented as of this encounter Visit Diagnoses Diagnosis Mixed hyperlipidemia documented in this encounter Care Teams Chain Maker Machine Relationship Specialty Start Date End Date Unknown Pcp, Non Php PCP - General 03/01/25 documented as of this encounter
--- OUTSIDE RECORDS SUMMARY | 2025-06-22 16:20 | XMS_ITS | Encounter Summary ---
Author Organization [facility] Address [address] [place] [address] Care Team Providers Care Marketing Finance Manager Name Role Phone Zulema Golden Primary Care Provider Encounter Details Date Type Department Care Team (Latest Contact Info) Description 05/05/2020 Scanned Document [email or web address] [address] [place] [id number] System, Provider Not In 12/31/2019 Endocrinology Review [...] filedocumented in this encounter Care Teams Marketing Finance Manager Relationship Specialty Start Date End Date Zulema Golden PA [address] [facility] [address] [place] [address] PCP - General Internal Medicine 12/30/19 documented as of this encounter
--- OUTSIDE RECORDS SUMMARY | 2025-06-22 16:20 | XMS_ITS | Encounter Summary ---
Author Organization [facility] Address [address] [place] [address] Care Team Providers Care Tdp Displays Analyst Name Role Phone Zulema Golden Primary Care Provider Encounter Details Date Type Department Care Team (Latest Contact Info) Description 05/05/2020 Scanned Document [facility] [address] [place] [address] System, Provider Not In 12/31/2019 [facility] Prior [...] on filedocumented in this encounter Care Teams Tdp Displays Analyst Relationship Specialty Start Date End Date Zulema Golden PA [address] [facility] [address] [place] [address] PCP - General Internal Medicine 12/30/19 documented as of this encounter
--- OUTSIDE RECORDS SUMMARY | 2025-06-22 16:21 | XMS_ITS | Clinical Summary ---
Author Organization [facility] Address [address] [place] [address] Phone Care Team Providers Care Mesh Cutter Name Role Phone Zulema Golden Primary Care Provider [phone] Allergies Active Allergy Reactions Criticality Noted Date Comments Gabapentin Fever,Other High 08/22/2017 Hypotension and fever per patient TouchWorks Comment: [id number]: fever Guanfacine Low blood pressure,Nausea And Vomiting,Unknown,Other Medium 01/28/2018 Dizziness. Low blood pressure Low blood pressure, dizziness Hypotension guanfacine Metformin Other 05/08/2025 Patient reports hypoglycemia Medications escitalopram (LEXAPRO) 20 mg tablet TAKE 1 TABLET BY MOUTH EVERY DAYFILL 07/21 9 Active levothyroxine (SYNTHROID, LEVOTHROID) 175 mcg tablet Take 1 tablet (175 mcg total) by mouth 1 (one) time each day. Active omeprazole (PriLOSEC) [address] capsule Take 1 capsule (20 mg total) by mouth 1 (one) time each day. 5 Active rosuvastatin (CRESTOR) 10 mg tablet Take 1 tablet (10 mg total) by mouth 1 (one) time each day. Active Trulicity 0.75 mg/0.5 mL pen injector injection INJECT 0.75 MG (0.5 ML) SUBCUTANEOUSLY WEEKLY 5 Active albuterol HFA (PROAIR HFA ; PROVENTIL HFA ; VENTOLIN HFA) 90 mcg/actuation inhaler 4 Active lisinopriL (PRINIVIL,ZEST RIL) 20 mg tablet Take 1 tablet (20 mg total) by mouth 1 (one) time each day. 5 Active Encounters Date Type Department Care Team Description 05/08/2025 12:32 AM EDT - 05/08/2025 3:16 AM EDT Emergency Day [facility] Emergency [address] [place] [address] Aleyda Cortes MD UTI (urinary tract infection), uncomplicated (Primary Dx); Fatty liver Discharge Disposition: Home or Self Care from Last 3 Months Surgical History Surgery Date Site/Laterality Comments MASTECTOMY PROCEDURE:MASTECTOMY Medical History Medical History Date Comments Hypothyroidism DX:Hypothyroidis m Anemia DX:Anemia Asthma DX:Asthma Family History Medical History Relation Name Comments Hypertension Mother Relation Name Status Comments Father Alive Mother Alive Social History Tobacco Use Types Packs/Day Years Used Date Smoking Tobacco: Never Assessed Comments Unknown Sex and Gender Information Value Date Recorded Sex Assigned at Female 05/07/2025 11:50 PM EDT Legal Sex X 05/07/2025 11:50 PM EDT Gender Identity Other 05/07/2025 11:50 PM EDT Sexual Orientation Bisexual 05/07/2025 11 :50 PM EDT Obstetrics History Last Filed Vital Signs Vital Sign Reading Time Taken Comments Blood Pressure 141/92 05/08/2025 3:08 AM EDT Pulse 86 05/08/2025 3:08 AM EDT Temperature 36.5 C (97.7 F) 05/08/2025 3:08 AM EDT Respiratory Rate 19 05/08/2025 3:08 AM EDT Oxygen Saturation 93% 05/08/2025 3:08 AM EDT Inhaled Oxygen Concentration - - Weight 129 kg (285 lb) 05/08/2025 12:29 AM EDT Height 165.1 cm (5' 5 ) 05/08/2025 12:29 AM EDT Body Mass Index 47.43 05/08/2025 12:29 AM EDT Plan of Treatment Health Maintenance Due Date Last Done Comments Diabetes: Annual Foot Exam 02/22/2008 Diabetes: Annual Retina Eye Exam 02/22/2008 Pneumococcal Vaccine: Pediatrics (0 to 5 Years) and At-Risk Patients (6 to 49 Years) (1 of 2 - PCV) 2017 Cervical Cancer Screening: Pap Smear 2019 HIV Screening 09/22/2022 Hepatitis C Screening 09/22/2022 Social Influencers of Health Screening 09/22/2022 Depression Screening 10/20/2024 Diabetes: Annual Urine Albumin-Creatinine Ratio (uACR) 05/08/2025 Diabetes: Blood Sugar Control Test (HGBA1C) 05/08/2025 02/16/2024, 03/31/2018 COVID-19 Vaccine ( season) 2025 02/22/2021, 01/31/2021 Influenza Vaccine (#1) 2025 , 07/20/2021, 07/06/2020, Additional history exists Diabetes: Annual GFR (Glomerular Filtration Rate) 05/08/2026 05/08/2025, 12/25/2023, 06/23/2022, Additional history exists Hypertension/CHF/CAD Annual BMP Blood Test 05/08/2026 05/08/2025, 12/25/2023, 06/23/2022, Additional history exists Cholesterol Screening (Lipid Panel) 12/24/2028 12/25/2023, 11/28/2017 DTaP,Tdap,and Td Vaccines (2 - Td or Tdap) 02/26/2029 02/26/2019 Hepatitis A Vaccines Aged Out 11/19/2019, 06/18/2019, 05/18/2019 No longer eligible based on patient's age to complete this topic Hepatitis B Vaccines Completed 11/19/2019, 06/18/2019, 05/18/2019 HIB Vaccines Aged Out No longer eligi [...] 20 months Aged Out No longer eligible based on patient's age to complete this topic Varicella Vaccines Aged Out No longer eligible based on patient's age to complete this topic Procedures Procedure Name Priority Date/Time Associated Diagnosis Comments CT ABDOMEN PELVIS W CONTRAST STAT 05/08/2025 2:02 AM EDT ..URINALYSIS MICROSCOPIC REFLEX URINE CULTURE STAT 05/08/2025 12:48 AM EDT URINALYSIS WITH REFLEX MICROSCOPIC AND CULTURE STAT 05/08/2025 12:48 AM EDT URINALYSIS WITH REFLEX MICROSCOPIC AND CULTURE STAT 05/08/2025 12:48 AM EDT HCG, SERUM, QUALITATIVE STAT 05/08/2025 12:48 AM EDT MAGNESIUM STAT 05/08/2025 12:48 AM EDT CBC WITH AUTO DIFFERENTIAL STAT 05/08/2025 12:48 AM EDT CBC AND DIFFERENTIAL STAT 05/08/2025 12:48 AM EDT LIPASE STAT 05/08/2025 12:48 AM EDT COMPREHENSIVE METABOLIC PANEL STAT 05/08/2025 12:48 AM EDT CULTURE URINE STAT 05/08/2025 12:48 AM EDT from Last 3 Months Results * CT Abdomen Pelvis w Contrast (05/08/2025 2:02 AM EDT) Anatomical Region Laterality Modality Body Computed Tomogra phy 05/08/2025 2:11 AM EDT Impressions 05/08/2025 2:17 AM EDT 1. No acute intra-abdominal or pelvic process. 2. Enlarged fatty liver. 3. Mild sigmoid diverticulosis Report reviewed and signed by : Dr. Jose Rose on 05/08/2025 2:17 AM. Workstation Name - [id number] -------- FINAL REPORT -------- Dictated By: Jose Rose Dictated Date: 05/08/2025 02:11 ET Assigned Physician: Jose Rose Reviewed and Electronically Signed By: Jose Rose Signed Date: 05/08/2025 02:17 ET Workstation ID: [id number] Transcribed By: Self Edit Transcribed Date: 05/08/2025 02:11 ET Narrative 05/08/2025 2:[address] ABDOMEN PELVIS W CONTRAST HISTORY: 25 years Male Abdominal pain, acute, nonlocalized COMPARISON: None TECHNIQUE: CT abdomen, and pelvis was performed with intravenous contrast consisting of 80 ml of ISOVUE. Multiplanar reformats were reviewed. Dose reduction techniques were used including automated exposure control and adjustment of mA and/or KV according to patient size. FINDINGS: No significant abnormality in the lungs. Enlarged fatty liver No significant abnormality in the adrenals. No significant abnormality in the kidneys. No significant abnormality in the spleen. No significant abnormality in the pancreas. No cholecystitis. No bowel obstruction or bowel thickening. No appendicitis. No pneumoperitoneum. No significant lymphadenopathy. No abdominal aortic aneurysm. No significant abnormality in the pelvis. No acute osseous abnormalities. Mild sigmoid diverticulosis. Procedure Note Jose Rose MD - 05/08/2025 CT ABDOMEN PELVIS W CONTRAST HISTORY: 25 years Male Abdominal pain, acute, nonlocalized COMPARISON: None TECHNIQUE: CT abdomen, and pelvis was performed with intravenous contrastconsisting of 80 ml of ISOVUE. Multiplanar reformats were reviewed. Dosereduction techniques were used including automated exposure control andadjustment of mA and/or KV according to patient size. FINDINGS: No significant abnormality in the lungs. Enlarged fatty liver No significant abnormality in the adrenals. No significant abnormality in the kidneys. No significant abnormality in the spleen. No significant abnormality in the pancreas. No cholecystitis. No bowel obstruction or bowel thickening. No appendicitis. No pneumoperitoneum. No significant lymphadenopathy. No abdominal aortic aneurysm. No significant abnormality in the pelvis. No acute osseous abnormalities. Mild sigmoid diverticulosis. IMPRESSION: 1. No acute intra-abdominal or pelvic process. 2. Enlarged fatty liver. 3. Mild sigmoid diverticulosis Report reviewed and signed by : Dr. Jose Rose on 05/08/2025 2:17AM. Workstation Name - [id number] -------- FINAL REPORT -------- Dictated By: Jose Rose Dictated Date: 05/08/2025 02:11 ET Assigned Physician: Jose Rose Reviewed and Electronically Signed By: Jose Rose Signed Date: 05/08/2025 02:17 ET Workstation ID: [id number] Transcribed By: Self Edit Transcribed Date: 05/08/2025 02:11 ET Aleyda Cortes MD IM CT PROCEDURES Final Resu lt * (ABNORMAL) Urinalysis with reflex microscopic and culture (05/08/2025 12:48 AM EDT) Color, Urine Yellow Colorless, Yellow LAB URINALYSIS - AUTOMATED METHOD 05/08/2025 1:11 AM [facility] Clarity, Urine Slightly Cloudy(A) Clear LAB URINALYSIS - AUTOMATED METHOD 05/08/2025 1:11 AM [facility] Specific [place] Urine 1.015 1.005 - 1.030 LAB URINALYSIS - AUTOMATED METHOD 05/08/2025 1:11 AM [facility] pH, Urine 8.0 5.0 - 8.0 pH LAB URINALYSIS - AUTOMATED METHOD 05/08/2025 1:11 AM [facility] Leukocytes, Urine Small(A) Negative WBCs/mcL LAB URINALYSIS - AUTOMATED METHOD 05/08/2025 1:11 AM [facility] Nitrite, Urine Negative Negative LAB URINALYSIS - AUTOMATED METHOD 05/08/2025 1:11 AM [facility] Protein, Urine Negative Negative mg/dL LAB URINALYSIS - AUTOMATED METHOD 05/08/2025 1:11 AM [facility] Glucose, Urine Negative Negative mg/dL LAB URINALYSIS - AUTOMATED METHOD 05/08/2025 1:11 AM [facility] Ketones, Urine Negative Negative mg/dL LAB URINALYSIS - AUTOMATED METHOD 05/08/2025 1:11 AM EDT [facility] Blood, Urine Negative Negative mg/dL LAB URINALYSIS - AUTOMATED METHOD 05/08/2025 1:11 AM EDT [facility] Urine Urine specimen obtained by clean catch procedure / Unknown Non-blood Collection / Unknown 05/08/2025 12:48 AM EDT 05/08/2025 1:00 AM EDT us Aleyda Cortes MD LAB URINE ORDERABLES Final R esult Performing Organization Address City/[facility]/ZIP Co de Phone Number [facility] [address] [place] [address], [place] [phone] * (ABNORMAL) Urinalysis microscopic reflex urine culture (05/08/2025 12:48 AM EDT) RBC, Urine 0 0 - 3 /HPF 05/08/2025 1:33 AM EDT [facility] WBC, Urine >20(H) 0 - 5 /HPF 05/08/2025 1:33 AM EDT [facility] Bacteria, Urine 4+(A) None /HPF 05/08/2025 1:33 AM EDT [facility] Squamous Epithelial, Urine >20(H) 0 - 5 /HPF 05/08/2025 1:33 AM EDT [facility] Urine Urine specimen obtained by clean catch procedure / Unknown Non-blood Collection / Unknown 05/08/2025 12:48 AM EDT 05/08/2025 1:00 AM EDT us Aleyda Cortes MD LAB URINE ORDERABLES Final R esult Performing Organization Address City/[facility]/ZIP Co de Phone Number [facility] [address] [place] [address], [place] [phone] * (ABNORMAL) CBC auto differential (05/08/2025 12:48 AM EDT) [facility] WBC 10.9(H) 4.0 - 10.5 K/mcL LAB [facility]EM[facility]OLOGY [facility] RBC 4.69 4.20 - 6.00 M/mcL LAB HEMETOLOGY METHOD 05/08[facility]2025 [facility] Hemoglobin 13.3 12.5 - 18.0 g/dL LAB HEMETOLOGY METHOD 05/08/2025 1:37 AM [facility] Hematocrit 41.5 37.0 - 54.0 % LAB HEMETOLOGY METHOD 05/08/2025 1:37 AM [facility] MCV 88.5 78.0 - 100.0 FL LAB HEMETOLOGY METHOD 05/08/2025 1[facility] MCH 28.4 25.0 - 33.0 pcg LAB HEMETOLOGY METHOD 05/08/2025 1:37 AM [facility] MCHC 32.0 32.0 - 36.0 g/dL LAB HEMETOLOGY METHOD 05/08/2025 1:37 AM [facility] RDW 13.4 12.1 - 17.7 % LAB HEMETOLOGY METHOD 05/08/2025 1:37 AM [facility] Platelets 479(H) 150 - 450 K/mcL LAB HEMETOLOGY METHOD 05/08/2025 1:37 AM [facility] MPV 8.7 7.4 - 11.4 FL LAB HEMETOLOGY METHOD 05/08/2025 1:37 AM [facility] Neutrophils Relative 54.6 44.0 - 74.0 % LAB HEMETOLOGY METHOD 05/08/2025 1:37 AM [facility] Lymphocytes Relative 38.3 20.0 - 48.0 % LAB HEMETOLOGY METHOD 05/08/2025 1:37 AM [facility] Monocytes Relative 3.3 2.0 - 12.0 % LAB HEMETOLOGY METHOD 05/08/2025 1:37 AM [facility] Eosinophils Relative 3.1 0.0 - 6.0 % LAB HEMETOLOGY METHOD 05/08/2025 1:37 AM [facility] Basophils Relative 0.4 0.0 - 2.0 % LAB HEMETOLOGY METHOD 05/08/2025 1:37 AM [facility] Neutrophils Absolute 5.95 1.80 - 7.80 K/mcL LAB HEMETOLOGY METHOD 05/08/2025 1:37 AM [facility] Lymphocytes Absolute 4.17(H) 1.00 - 3.20 K/mcL LAB HEMETOLOGY METHOD 05/08/2025 1:37 AM [facility] Monocytes Absolute 0.36 0.00 - 0.80 K/mcL LAB HEMETOLOGY METHOD 05/08/2025 1:37 AM [facility] Eosinophils Absolute 0.34 0.00 - 0.50 K/mcL LAB HEMETOLOGY METHOD 05/08/2025 1:37 AM [facility] Basophils Absolute 0.04 0.00 - 0.20 K/mcL LAB HEMETOLOGY METHOD 05/08/2025 1:37 AM [facility] Blood Venous blood specimen / Unknown Venipuncture / Unknown 05/08/2025 12:48 AM EDT 05/08/2025 12:59 AM EDT us Lis Susannah Cortes MD LAB BLOOD ORDERABLES Final R esult Performing Organization Address City/[facility]/ZIP Co de Phone Number [facility] [address] [place] [address], [place] [phone] * Culture urine (05/08/2025 12:48 AM EDT) Pathologist [facility] Culture, Urine Mixed urogenital madeline, no uropathogens present. Suggest repeat specimen, if clinically indicated. 05/09/2025 1:31 PM EDT [facility] Urine Urine specimen obtained by clean catch procedure / Unknown Non-blood Collection / Unknown 05/08/2025 12:48 AM EDT 05/08/2025 1:11 AM EDT Aleyda Cortes MD LAB MICROBIOLOGY - GENERAL O RDERABLES Final Result Performing Organization Address [facility]/ZIP Co de Phone Number [facility] [address] [place] [address], [place] [phone] * HCG, serum, qualitative (05/08/2025 12:48 AM EDT) Pathologist [facility] hCG Qual Negative Negative 05/08/2025 1:44 AM EDT [facility] Blood Venous blood specimen / Unknown Venipuncture / Unknown 05/08/2025 12:48 AM EDT 05/08/2025 12:59 AM EDT Aleyda Cortes MD LAB BLOOD ORDERABLES Final R esult Performing Organization Address City/[facility]/ZIP Co de Phone Number [facility] [address] [place] [address], [place] [phone] * Magnesium (05/08/2025 12:48 AM EDT) Pathologist [facility] Magnesium 1.9 1.7 - 2.8 mg/dL LAB CHEMISTRY METHOD 05/08/2025 1:52 AM EDT [facility] Blood Venous blood specimen / Unknown Venipuncture / Unknown 05/08/2025 12:48 AM EDT 05/08/2025 12:59 AM EDT Aleyda Cortes MD LAB BLOOD ORDERABLES Final R esult Performing Organization Address City/[facility]/ZIP Co de Phone Number [facility] [address] [place] [address], [place] [phone] * Lipase (05/08/2025 12:48 AM EDT) Lipase 27 11 - 82 unit/L LAB CHEMISTRY METHOD 05/08/2025 1:44 AM EDT [facility] Blood Venous blood specimen / Unknown Venipuncture / Unknown 05/08/2025 12:48 AM EDT 05/08/2025 12:59 AM EDT us Aleyda Cortes MD LAB BLOOD ORDERABLES Final R esult [facility] [address] [place] [address], [place] [phone] * (ABNORMAL) Comprehensive metabolic panel (05/08/2025 12:48 AM EDT) Sodium 137 135 - 145 mmol/L LAB CHEMISTRY METHOD 05/08/2025 1:44 AM EDT [facility] Potassium 3.4(L) 3.5 - 5.1 mmol/L LAB CHEMISTRY METHOD 05/08/2025 1:44 AM EDT [facility] Chloride 102 98 - 107 mmol/L LAB CHEMISTRY METHOD 05/08/2025 1:44 AM EDT [facility] CO2 27 24 - 32 mmol/L LAB CHEMISTRY METHOD 05/08/2025 1:44 AM EDT [facility] Anion Gap 8 5 - 14 LAB CHEMISTRY METHOD 05/08/2025 1:44 AM [facility] Glucose 75 70 - 199 mg/dL LAB CHEMISTRY METHOD 05/08/2025 1:44 AM [facility] BUN 10 7 - 20 mg/dL LAB CHEMISTRY METHOD 05/08/2025 1:44 AM [facility] Creatinine 0.93 0.50 - 1.30 mg/dL LAB CHEMISTRY METHOD 05/08/2025 1:44 AM [facility] eGFR 87 >=60 mL/min/1. 73m2 LAB CHEMISTRY METHOD 05/08/2025 1:44 AM [facility] Comment: For non-binary individuals or unknown sex, the equation for female sex is used to calculate the estimated glomerular filtration rate (eGFR). Calculation based on the Chronic Kidney Disease Epidemiology Collaboration (CKD- EPI) equation refit without adjustment for race. BUN/Creatinine Ratio 10.8(L) 12.0 - 20.0 LAB CHEMISTRY METHOD 05/08/2025 1:44 AM [facility] Calcium 8.7 8.4 - 10.2 mg/dL LAB CHEMISTRY METHOD 05/08/2025 1:44 AM [facility] AST (SGOT) 15 5 - 40 unit/L LAB CHEMISTRY METHOD 05/08/2025 1:44 AM [facility] ALT (SGPT) 18 7 - 52 unit/L LAB CHEMISTRY METHOD 05/08/2025 1:44 AM [facility] Alkaline Phosphatase 84 34 - 104 unit/L LAB CHEMISTRY METHOD 05/08/2025 1:44 AM [facility] Total Protein 7.5 6.4 - 8.5 g/dL LAB CHEMISTRY METHOD 05/08/2025 1:44 AM [facility] Albumin 4.3 3.5 - 5.0 g/dL LAB CHEMISTRY METHOD 05/08/2025 1:44 AM EDT [facility] Total Bilirubin 0.4 0.3 - 1.0 mg/dL LAB CHEMISTRY METHOD 05/08/2025 1:44 AM EDT [facility] Blood Venous blood specimen / Unknown Venipuncture / Unknown 05/08/2025 12:48 AM EDT 05/08/2025 12:59 AM EDT us Lis Susannah Cortes MD LAB BLOOD ORDERABLES Final R esult [facility] [address] [place] [address], [place] [phone] from Last 3 Months Insurance [employer] Care Teams Mesh Cutter Relationship Specialty Start Date End Date Zulema Golden PA [address] [place] [address] PCP - General Front End Ui Developer 01/31/21
--- OUTSIDE RECORDS SUMMARY | 2025-06-22 16:21 | XMS_ITS | Encounter Summary ---
Author Organization [facility] Address [address] [place] [address] Care Team Providers Care Building Serviceman Name Role Phone Abad Mccann MD Primary Care Provider Zulema Golden Primary Care Provider [phone] Abad Mccann MD Unavailable [phone] Encounter Details Date Type Department Care Team (Late st Contact Info) Description 12/11/2017 Scanned Document [facility] [place] [address] [place] [address] Sarah Sherman MD [address] [facility] [address] [place] [address] Social History Tobacco Use Types Packs/Day Years [...] on filedocumented in this encounter Care Teams Building Serviceman Relationship Specialty Start Date End Date Aabd Mccann MD [address] [place] [address] PCP - General Family Medicine 10/09/16 10/28/20 Zulema Golden [address] [place] [address] PCP - General Internal Medicine 10/29/20 Abad Mccann MD [address] [place], [place] [address]b[address] [place] [address] Family Medicine 10/29/20 documented as of this encounter
--- OUTSIDE RECORDS SUMMARY | 2025-06-22 16:21 | XMS_ITS | Clinical Summary ---
Author Organization [facility] Address [address] [place] [address] Care Team Providers Care Airframe Design Engineer Name Role Phone Zulema Golden Primary Care Provider [phone] Abad Mccann MD Unavailable [phone] Allergies Active Allergy Reactions Criticality Noted Date [...] (12/17/2017): Added automatically from request for surgery [id number] Family history of malignant neoplasm of breast 0 12/17/2017 Overview (12/17/2017): Added automatically from request for surgery [id number] Absence of breast, acquired, bilateral 8 Overview (12/17/2017): Added automatically from request for surgery [id number] 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 12/17/2017 Overview (12/17/2017): Added automatically from request for surgery [id number] Schizoaffective disorder, depressive type 2017 Resolved Problems [...] 88 10/29/2020 1:04 PM EST Temperature 37.2 C (98.9 F) 10/29/2020 1:04 PM EST Respiratory Rate 18 02/24/2018 10:41 AM EDT [...] (3 - 2023- season) 2024 02/22/2021, 01/31/2021 HPV Vaccines (1 - 3-dose SCDM series) 2025 Influenza Vaccine 05/20/2025 07/23/2022, , 07/06/2020, Additional history exists Pneumococcal Vaccine: Pediatric (0-5 Years) and At-Risk Patients (6 to 49 Years) Aged Out No longer eligible based on patient's age to complete this topic Insurance [facility] PPO [employer] PPO [facility] [employer], [facility] Advance Directives * Full Code (Latest Code Status on File) Date Activated Date Inactivated Comments 01/29/2018 10:14 AM 02/23/2018 12:09 PM Question Answer Comments Decision Thoroughly Discussed with: Patient * Full Code Date Activated Date Inactivated Comments 11/12/2017 1:13 PM 01/29/2018 9:20 AM * Full Code Date Activated Date Inactivated Comments 01/10/2017 12:34 PM 01/13/2017 6:32 PM Care Teams Airframe Design Engineer Relationship Specialty Start Date End Date Zulema Golden [address] [place] [address] PCP - General Internal Medicine 10/29/20 Abad Mccann MD Romario Ochoa [address] [place] [address] [facility] 10/29/20
== END 2025-06-22 14:49 | disposition home or self-care (01) ==
LOC: HO.HMCFM 14:04
PROVIDERS: PCP Physician Assistant; Visit Provider Physician Assistant
DX: E11.65 Type 2 diabetes mellitus with hyperglycemia (principal)

== ENCOUNTER 2025-06-22 14:04 | Outpatient (REF) | payer OTHER, SELFPAY ==
[2025-06-22 18:18] LABS: Alanine Aminotransferase 28 U/L (0-31); Albumin Level 4.5 g/dL (3.5-5.0); Alkaline Phosphatase 103 U/L (39-117); Anion Gap 15 (12-20); Aspartate Amino Transferase 23 U/L (5-31); Blood Urea Nitrogen 14 mg/dL (9-16); Calcium 9.1 mg/dL (8.4-10.2); Carbon Dioxide 22 mmol/L (22-29); Chloride 106 mmol/L (96-108); Estimated Glomerular Filt Rate > 60; Gamma Glutamyl Transpeptidase 30 U/L (7-33); Potassium 3.6 mmol/L (3.3-5.1); Sodium 139 mmol/L (135-145); Total Protein 7.8 g/dL (6.5-8.0)
[2025-06-23 08:07] LABS: HBsAGNum1 0.42 S/CO (0.00-0.99); Hepatitis B Surface Antigen Negative (Negative); ~HepC Num1 0.28 S/CO (0.00-0.79); ~Hepatitis C Antibody Nonreactive (Nonreactive)
== END 2025-06-22 14:05 | disposition home or self-care (01) ==
LOC: HO.WFDLDS 14:04
PROVIDERS: PCP Physician Assistant; Visit Provider Physician Assistant
DX: R94.5 Abnormal results of liver function studies (principal); R79.89 Other specified abnormal findings of blood chemistry; E11.65 Type 2 diabetes mellitus with hyperglycemia; F25.9 Schizoaffective disorder, unspecified; F50.9 Eating disorder, unspecified; F41.8 Other specified anxiety disorders; I10 Essential (primary) hypertension; E78.5 Hyperlipidemia, unspecified; Z79.890 Hormone replacement therapy; Z79.85 Long-term (current) use of injectable non-insulin antidiabetic drugs; Z79.899 Other long term (current) drug therapy
CPT/HCPCS: 36415; 80048; 80076; 82977; 83036; 86803; 87340; 99212

== ENCOUNTER 2025-09-27 10:58 | Outpatient (REF) | payer OTHER, SELFPAY ==
[2025-09-27 14:57] LABS: Microalbum/Creatinine Ratio Ur 9.3 ug/mg cr (<30)
[2025-09-27 15:35] LABS: Folate 4.8 ng/mL (> or = 4.0); Vitamin B12 356 pg/mL (200-900)
== END 2025-09-27 10:59 | disposition home or self-care (01) ==
LOC: HO.WFDLDS 10:58
PROVIDERS: PCP Physician Assistant; Visit Provider Physician Assistant
DX: F41.8 Other specified anxiety disorders (principal); F25.9 Schizoaffective disorder, unspecified; E78.5 Hyperlipidemia, unspecified; I10 Essential (primary) hypertension; E11.65 Type 2 diabetes mellitus with hyperglycemia; E55.9 Vitamin D deficiency, unspecified; F50.9 Eating disorder, unspecified
CPT/HCPCS: 36415; 82043; 82306; 82570; 82607; 82746; 83036; 84443; 99212

== ENCOUNTER 2025-09-27 10:58 | Outpatient (AMB) | payer OTHER, SELFPAY ==
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
[2025-09-27 11:06] VITALS: BP 126/84; PULSE 85; RESP 14; TEMP 36.6; O2SAT 95; BMI 43.9
== END 2025-09-27 11:45 | disposition home or self-care (01) ==
LOC: HO.HMCFM 10:59
PROVIDERS: PCP Physician Assistant; Visit Provider Physician Assistant
DX: E11.65 Type 2 diabetes mellitus with hyperglycemia (principal); F50.9 Eating disorder, unspecified; F41.8 Other specified anxiety disorders; I10 Essential (primary) hypertension; E78.5 Hyperlipidemia, unspecified; E55.9 Vitamin D deficiency, unspecified

== ENCOUNTER 2025-10-17 15:19 | Outpatient (AMB) | payer OTHER, SELFPAY ==
--- NOTE | 2025-10-17 15:55 | MHC.AMDMED ---
Intake Intake Visit Reasons: Type 2 diabetes mellitus with hyperglycemia Master Automotive Glass Technician Required: No Accompanied by: Significant Other Allergies guanfacine Allergy (Severe, Verified 09/27/25 11:05) low blood pressure metformin Allergy (Intermediate, Verified 09/27/25 11:05) low glucose gabapentin Allergy (Verified 09/27/25 11:05) Fever HPI Comprehensive Diabetes Asmnt Most Recent Diabetes Results: Microalb/Creat Ratio, (<30) 9.3 ug/mg cr 09/27/25 Creatinine, (0.5-1.4) 0.90 mg/dL 06/22/25 BUN, (9-16) 14 mg/dL 06/22/25 Sodium, (135-145) 139 mmol/L 06/22/25 Potassium, (3.3-5.1) 3.6 mmol/L 06/22/25 Chloride, (96-108) 106 mmol/L 06/22/25 Carbon Dioxide, (22-29) 22 mmol/L 06/22/25 Calcium, (8.4-10.2) 9.1 mg/dL 06/22/25 AST, (5-31) 23 U/L 06/22/25 ALT, (0-31) 28 U/L 06/22/25 Total Protein, (6.5-8.0) 7.8 g/dL 06/22/25 Albumin, (3.5-5.0) 4.5 g/dL 06/22/25 PFSH Family History (Updated 07/15/25 @ 08:13 by Roshni Mauricio CMA) Brother Alcoholism Substance abuse Sister Anxiety Depression Mother Bipolar 2 disorder Borderline personality disorder Social History (Updated 06/22/25 @ 14:28 by Roshni Mauricio CMA) Housing: Apartment Alcohol intake: current Comment: less then once a month Patient Tobacco Use Status: Current someday Tobacco user Cigarettes Per Day: 4 Years Smoked: 2 e-Cigarette/Vaping Use: Currently Using Second Hand Smoke Exposure: No service: No Current occupational status: disabled Current occupation: On [employer] Cognitive needs: No Hearing needs: No Vision needs: No Assessment & Plan Assessment & Plan (1) Uncontrolled type 2 diabetes mellitus with hyperglycemia: Code(s): E11.65 - Type 2 diabetes mellitus with hyperglycemia Plan: Learning objectives: The patient was provided with verbal and written education on the following topics as outlined below. The patient met all learning objectives and was able to verbalize understanding and provide teach back of education topics discussed . The patient was provided with the opportunity to ask questions and all questions were answered. Patient Assessment Assess patient education level/literacy/barriers, patient's last A1c in September 2025 5.8% Patient is currently on Trulicity 1.5 mg weekly Patient questions/concerns, patient reports she has history of eating disorder, has trouble eating consistent meals. In addition has some food insecurity. Patient given [employer] hotline, discussed using HIP benefits What is Diabetes? Pathophysiology How the body produces and uses insulin Identify type of DM Risk factors Signs of Diabetes Brief overview of Diabetes Management Monitoring blood sugar Following a meal plan Regular exercise Maintaining a healthy weight Taking medication as needed Members of the care team (PCP, RN, MA, RD, CDE, medicine aide) Blood glucose monitoring When/how often to test Target blood sugar ranges Introduction to Nutrition Importance of healthy diet in managing DM Diet is personalized to individual preference Review patient?s regular diet/food preferences Who prepares meals/does food shopping/ Dining out?/ Barriers? How diet effects glucose Eating 3 balanced meals a day with small, healthy snacks between meals Review food groups Carbohydrates: What is a carbohydrate/Which food/food groups are considered carbohydrates Effect of carbohydrates on blood glucose Portion sizes Reading food labels Basic carb counting (if applicable per nursing assessment) Plate method Meal planning Recommendations: Follow plate method, consistent carbs and read nutritional labels. Smart Goal: Patient will keep carbohydrate portion at mealtime 30-45 g Educational Materials: The patient was provided with the following written educational materials: Planning Healthy Meals Handout Patient Response to instructions: Comprehension of Instructions: Fair Readiness to make changes: Contemplation How confident they feel about making changes: Positive Portions of this note were created using voice recognition software, please excuse any words or phrases that may have been misinterpreted Patient Instructions: Include regular daily activity. ADA recommends 30 minutes of exercise 5 days a week. Weight loss talk to PCP or Municipal Bond Trader before starting new plan. Test blood sugar as directed; Fasting and 2hpp largest meal. Watch trends in results. Utilize results and to assess how food, physical activity and medications affect blood sugar results. Bring glucometer or CGM to next visit. Be knowledgeable about diabetes medication, its action, side effects, efficacy, toxicity, prescribed dosage, appropriate timing and frequency of administration, effect of missed and delayed doses and instructions for storage, travel and safety. Problem solving techniques to monitor hypo/hyperglycemia episodes and treatments. Reduce risk reduction behaviors, smoking cessation, regular eye, foot and dental examinations. Coding Level of Care Code G0108 Diab Man Trn Indiv 30min Diagnoses Uncontrolled type 2 diabetes mellitus with hyperglycemia E11.65
--- OUTSIDE RECORDS SUMMARY | 2025-10-17 17:25 | XMS_ITS | Data Portability ---
Author Organization [place] - [facility], Allergy Address [address] [address] Care Team Providers Care Professor Of Counseling Name Role Phone FARTUN BISHOP Referring Provider Assessment Encounter Date Assessment Date Assessment LastModified by Organization Details LastModified Time 06/28/2025 06/28/2025 25-year-old damian shannon presents for evaluation of recurrent ear and sinus infection. Otologic exam is unremarkable today with normal TMs and well aerated middle ear space. Anterior rhinoscopy shows fairly patent nares bilaterally without polyps or rhinorrhea. There is however a fairly obstructive septal deviation to the right posteriorly. Recommended a CT scan of the sinus for further evaluation and to ensure patent OMU. If unremarkable could consider septoplasty only. For recurrent congestion and middle ear dysfunction would recommend allergy testing for further evaluation. Audiometric testing today is normal with normal tympanometry bilaterally. Follow-up after allergy testing and CT scan for review and further planning. All questions were answered. alberta Not available 06/28/2025 11:22:57 08/15/2025 08/15/2025 25-year-old patient presents for reevaluation. CT scan of the sinuses were obtained today. There is septal bowing to the right as a result of conch turbinate on the left. There is also turbinate hypertrophy and scattered maxillary and ethmoid disease bilaterally. Results were reviewed in detail with patient as well as allergy testing results. We had a detailed discussion today regarding possible surgical options and allergy shots. They are interested in having surgical consultation which will be arranged. They are also interested in starting allergy shots which were also ordered. EpiPen will be sent to pharmacy. Follow-up in 6 months for allergy review. All questions were answered. Immunotherapy - Sublingual We discussed the role of immunotherapy. I explained that this involves the introduction of increasingly graduated dosages of the appropriate allergens by sublingual immunotherapy to facilitate tolerance. I explained about the likelihood of improvement usually within a three to six month time period provided that the patient is compliant with therapy. We spoke about the duration of therapy, which typically lasts from three to five years though at times can be indefinite. We also discussed the risk of anaphylaxis with sublingual immunotherapy. Immunotherapy - Subcutaneous We also discussed the role of immunotherapy. I explained that this is instituted for the most significant of allergies and involves the introduction of increasingly graduated dosages of the appropriate allergens by subcutaneous injection to facilitate tolerance. I explained about the likelihood of improvement usually within a three to six month time period provided that the patient is compliant with therapy. We spoke about the duration of therapy, which typically lasts from three to five years though at times can be indefinite. We also discussed the risk of anaphylaxis with this. alberta Not available 08/15/2025 12:59:42 09/07/2025 09/07/2025 25-year-old patient presents for revaluation of chronic allergic rhinitis, nasal obstruction, chronic sinusitis. Assessment: - Allergic rhinitis, year-round allergies. -Chronic sinusitis - Asthma, poorly controlled. - Diabetes, contributing to recurrent infections. 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 Plan: Allergy immunotherapy is recommended to address year-round allergies, including sensitivities to trees, dust, grass, weeds, and molds. The goal is to reduce allergic inflammation and improve nasal and respiratory symptoms. Immunotherapy will begin with weekly sessions, tapering to monthly maintenance over time. Discussed the option of sinus surgery to address mild sinus disease and septal deviation, but the patient prefers to delay surgery at this time. Surgery would aim to improve nasal airway and medication delivery but is not urgent given the mild nature of the disease. Recommended daily use of nasal sprays such as Nasacort or Rhinocort, which are less drying than Flonase, to manage nasal inflammation. Advised against intermittent use of nasal sprays as it reduces efficacy. Suggested additional measures to reduce allergen exposure, including nasal washes with salt water, washing sheets in hot water, using HEPA filters or air purifiers, and wearing a mask during activities like cleaning, dusting, or lawn care. Counseled the patient on asthma management, emphasizing the importance of consistent use of maintenance inhalers and follow-up with her primary care provider for better asthma control. Educated the patient on the potential impact of diabetes and hypothyroidism on immune function and recurrent infections. No immediate concerns for systemic immunodeficiency were identified, but monitoring for recurring infections is advised. Follow-up with Bee after testing as scheduled [email or web address] Not available 09/07/2025 14:39:53 Plan of Treatment Reminders Order Date Submit Date Provider Last Modified By Organization Details Last Modified Time Details Appointments Establish ed 15 2025 01:00P M BEE BAIRD PA-C Not available Not available Not available Lab None recorded. Referral None recorded. Procedures allergen immunothe rapy; multiple injection s (PROC) 2024 025 [email or web address] Not available 09/22/2025 13:35:36 allergy testing, skin prick (PROC) 2024 025 [email or web address] 32 Not available 07/20/2025 11:45:07 intraderm al allergy skin testing (PROC) 2024 025 [email or web address] 32 Not available 07/20/2025 11:45:07 pulmonary function test procedure (PROC) 2024 025 [email or web address] 32 Not available 07/20/2025 11:45:07 pulse oximetry (PROC) 2024 025 [email or web address] 32 Not available 07/20/2025 11:45:07 Surgeries None recorded. Imaging CT, sinuses, w/o contrast 2024 025 [email or web address] [facility], [address] [place] [address], [place], [address], 08/15/2025 13:00:49 CT, sinuses, w/o contrast 2024 025 [email or web address] Not available 07/08/2025 09:21:56 Medication Orders epinephri ne 0.3 mg/0.3 mL injection , auto-inje ctor 2024 025 [facility][id number], [address] [place], [address], 09/07/2025 15:14:50 Patient TargetsNo targets recorded. Patient Instructions Encounter Date Encounter Id Patient Instructions Last Modified By Organization Details Last Modified Time 07/20/2025 [id number] spirometry testing* [email or web address] Not available 07/21/2025 11:57:40 09/07/2025 [id number] - Begin allergy immunotherapy as recommended. - Use Nasacort or Rhinocort daily for nasal inflammation. - Perform nasal washes with salt water regularly. - Wash sheets in hot water to reduce allergens. - Use HEPA filters or air purifiers at home. - Wear a mask during cleaning, dusting, or lawn care activities. - Follow up with primary care provider for asthma management and maintenance inhaler prescription. [email or web address] Not available 09/07/2025 14:38:46 Please note: Parts of this encounter note have been generated by AI based on audio conversation. Patient consent was required prior to utilizing this technology. Content review was required prior to finalizing the note. [email or web address] Not available 09/07/2025 14:38:46 Reason for Referral None Reported. Results Created Date Observation Date Name Description Value Unit Range Abnormal Flag Note LastModifiedBy Organization Detail LastModifiedTime 06/28/20 audio gram No observ ation record ed. BARCODE Not Available 2024 12:29:50 07/20/20 25 altagracia metry testi ng* No observ ation record ed. [email or web address] Not Available 2024 13:17:58 08/15/20 CT, sinus es, w/o contr ast No observ ation record ed. [facility] Of [address], [address], 08/15/2025 13:00:47 09/10/20 25 08/15/2025 CT, sinus es, w/o contr ast No observ ation record ed. angelo [facility] [address], [address], 09/10/2025 13:54:52 Result Notes None recorded. Problems Name Problem SNOMED Code Status Onset Date Resolution Date Notes Provider Name and Address Organization Details Recorded Time Abnormal auditory perception 93606698 Active 025 NICOLE MCCORMICK 100 [facility], [facility], [facility] [place], [address], [facility] - [facility] [place] 5 10:28:07 Nasal congestion 29306345 Active 025 BEE BAIRD PA-C 100 [facility], [facility], [facility] [place], [address], [facility] - [facility] [place] 5 11:23:02 Deviated nasal septum 263933705 Active 025 BEE BAIRD PA-C 100 [facility], [facility], [facility] [place], [address], [facility] - [facility] [place] 5 11:23:09 Perennial allergic rhinitis 067630203 Active 025 JACOBO IBARRA, [address], [address] [facility], [facility] [place], [address], [facility] - [facility] [place] 5 13:11:27 Chronic maxillary sinusitis 92668821 Active 025 BEE BAIRD PA-C [address] [place] [address] [address] [facility], [facility] [place], [address], [facility] - [facility] [place] 5 13:00:00 Asthma - currently active 826191556 Active 025 Espinoza Mcleod DO [address] [place] [address], [facility], [facility] [place], [address], [facility] - [facility] [place] 5 14:26:16 Allergic rhinitis 11776762 Active 025 Espinoza Mcleod DO [address] [place] [address], [facility], [facility] [place], [address], [facility] - [facility] [place] 5 14:37:12 Problem Notes None recorded. Procedures Surgical History Date Name Laterality Status Provider Name and Address Organization Details Recorded Time Allergy Testing-Full completed JACOBO IBARRA, RMA [address], [place], [address], [facility] - [facility] 07/20/2025 14:27:21 Air & Speech Audio with Tymps - 45161, 68010 & 54895 completed FORTUNATO POSADA, [facility] [address], [place], [address], [facility] - [facility] 06/28/2025 10:27:56 Imaging Results None recorded. Procedure Notes None recorded. Medical Equipment None Reported. Allergies Allergen ID Allergen Name Allergen Category Reaction Reaction Severity Criticality Documentation Date Start Date Code Code System Note Provider Name and Address Organization Details Recorded Time 947212 gabapenti n medicatio n fever mild Not available 07/20/2025 32058 RxNorm JACOBO ANICETOC, RMA [address], [place], [address], [facility] 13:09:06 012110 guanfacin e medicatio n decreased blood pressure severe Not available 07/20/2025 11849 RxNorm JACOBO ANICETOZEC, RMA [address], [facility] [place], [address], [facility] 13:09:06 247018 metformin medicatio n other moderate Not available 07/20/2025 6809 RxNorm JACOBO KORFORMERLY [facility], [facility], A [address], [place], [address], [facility] 13:09:06 Medications Name Sig Start Date Stop Date Status Note LastModified by Organization Details LastModified Time levothyroxi ne 175 mcg tablet TAKE TABLET BY MOUTH DAILY active Not Available Not Available No t Available lisinopril 20 mg tablet TAKE 1 TABLET BY MOUTH DAILY. active Not Available Not Available No t Available Accu-Chek Softclix Lancets USE DIRECTED TO MONITOR BLOOD SUGAR ONCE DAILY. active Not Available Not Available No t Available sulfamethox azole 800 mg-trimetho prim 160 mg tablet TAKE 1 TABLET BY MOUTH EVERY 12 HOURS FOR 7 DAYS 07/16 completed Not Available Not Available Not Available lisinopril 10 mg tablet TAKE 1 TABLET BY MOUTH EVERY DAY 07/16 completed Not Available Not Available Not Available omeprazole 20 mg capsule,del ayed release TAKE 1 CAPSULE BY MOUTH DAILY. active Not Available Not Available No t Available epinephrine 0.3 mg/0.3 mL injection, auto-inject or Take 1 auto by injection route for 180 days, for anaphylax is. 2024 active Not Available Not Available Not Avai lable amoxicillin 875 mg-potassiu m clavulanate 125 mg tablet TAKE 1 TABLET BY MOUTH EVERY 12 HOURS FOR 5 DAYS 07/16 completed Not Available Not Available Not Available Ventolin HFA 90 mcg/actuati on aerosol inhaler INHALE 1 TO 2 PUFFS BY MOUTH FOUR TIMES DAILY NEEDED. active Not Available Not Available No t Available escitalopra m 10 mg tablet TAKE 1 TABLET BY MOUTH EVERY DAY 07/16 completed Not Available Not Available Not Available escitalopra m 20 mg tablet TAKE 1 TABLET BY MOUTH DAILY. active Not Available Not Available No t Available rosuvastati n 10 mg tablet TAKE 1 TABLET BY MOUTH AT BEDTIME active Not Available Not Available No t Available FreeStyle Lite Meter kit USE DAILY DIRECTED TO CHECK BLOOD SUGARS active Not Available Not Available No t Available FreeStyle Lite Strips USE DAILY DIRECTED TO CHECK BLOOD GLUCOSE active Not Available Not Available No t Available Trulicity 1.5 mg/0.5 mL subcutaneou s pen injector INJECT 0.5 ML (1.5 MG) SUBCUTANE OUSLY ONE TIME PER WEEK active Not Available Not Available No t Available Trulicity 0.75 mg/0.5 mL subcutaneou s pen injector INJECT 0.75 MG (0.5 ML) SUBCUTANE OUSLY WEEKLY 07/16 completed Not Available Not Available Not Available loratadine 10 mg chewable tablet Take by oral route. active Not Available Not Available No t Available Vitals Date Recorded Body height Oxygen saturation Heart rate Body mass index (BMI) Body weight Systolic And Diastolic Provider Name and Address Organization Details Last Updated DateTime 5 163.83 cm 99 % 87 /min 45.6 kg/m2 022051. 94 g 135/86 mm[Hg] [facility] [address] [place], [address], [place] - [facility] 13:08:44 Date Recorded Body height Body mass index (BMI) Body weight Provider Name and Address Organization Details Last Updated DateTime 09/07/2025 163.83 cm 46.5 kg/m2 855702.9 g Alisha Brown [place] - [facility] 09/07/2025 14:24:16 Social History Question Answer Notes LastModified by Organizat ion Details LastModified Time Tobacco Smoking Status Current Some Day Smoker JACOBO ZENDEJAS, A 100 [facility] 100, [place], [address], [facility] - [facility] 07/20/2025 13:09:19 How Many Years Have You Consumed Alcohol? 10 Information not available 07/20/2025 What Type Of Off Premise Service Representative Do You Use? None Information not available 07/20/2025 How Many Alcoholic Drinks Do You Consume Per Day On Average? 0 Information not available 07/20/2025 What Is Your Current Pack Years? 10packyears Information not available 07/20/2025 Do You Have Any Pets? Yes Information not available 07/20/2025 At What Age Did You Start Smoking Tobacco? 15 Information not available 07/20/2025 Are You Passively Exposed To Smoke? No Information not available 07/20/2025 Are There Any Smokers In Your House? Yes Information not available 07/20/2025 How Much Tobacco Do You Smoke? 1 PPW Information not available 07/20/2025 How Many Years Have You Smoked Tobacco? 10 Information not available 07/20/2025 How Many Years Have You Used E-cigarettes Or Vape? 4 Information not available 07/20/2025 Sex: Unknown Functional Status Question Answer Note LastModified by Organization Details LastModified Time How many times per week do you consume alcohol? Less than 1 time per week Inform ation not available 07/20/2025 Do you use any illicit or recreational drugs? No Information not available 07/20/2025 Do you or have you ever used any other forms of tobacco or nicotine? Yes Information not available 07/20/2025 What is your level of alcohol consumption? Occasional Information not available 07/20/2025 Do you or have you ever used smokeless tobacco? Never used smokeless tobacco Information not available 07/20/2025 Do you or have you ever used e-cigarettes or vape? Current user of electronic cigarettes Information not available 07/20/2025 What type of noise exposure are you exposed to? noExposureToExcessiveNoise Infor mation not available 07/20/2025 Mental Status None recorded. Family History Nothing Reported. Medical History Condition Response Nasal or Sinus Problems Y Rhinitis Y Food Allergy N Tonsil Infections N High Cholesterol Y Liver Disease Y Eczema Y Other Skin Condition Y COPD N Nasal polyps N Gynecological HistoryNo gynecological history recorded. Obstetrics History GPAL:G 0 P 0 0 0 0 Past Encounters Encounter ID Performer Location Encounter Start Date Encounter Closed Date Diagnosis/Indication Diagnosis SNOMED-CT Code Diagnosis ICD10 Code Diagnosis IMO Codes Diagnosis Note [id number] BEE BAIRD PA-C [facility] [address] [address] 06/28/2025 10:11:08 06/28/2025 10:45:34 Abnormal auditory perception 35285002 H93.293 [id number] Audiologic al evaluation results: 06/28/2025 Right ear: Normal hearing with excellent word recognitio n. Left ear: Normal hearing with excellent word recognitio n. Tympanomet ry: Right Ear:Type A Left Ear:Type A Nasal congestion 8658063 0 R09.81 35775 Deviated nasal septum 12 8765066 J34.2 386147 [id number] JACOBO KORZE, RMA Allergy [address] [place] [address] [place] [address] 07/20/2025 12:45:21 07/20/2025 14:28:13 Perennial allergic rhinitis 886314602 J30.89 [id number] BEE BAIRD PA-C [facility] [address] [address] 08/15/2025 11:28:14 08/15/2025 12:12:34 Deviated nasal septum 012141584 J34.2 948608 Perennial allergic rhinitis 197618262 J30.89 075157 Nasal congestion 3175047 0 R09.81 91845 Chronic al xillary sinusitis 26159011 J32.0 2493 [id number] Espinoza Mcleod, DO [facility] [address] [address] 09/07/2025 14:12:29 09/07/2025 14:39:39 Deviated nasal septum 350771160 J34.2 655980 Perennial allergic rhinitis 740875244 J30.89 907302 Nasal congestion 4775107 0 R09.81 84992 Chronic ma xillary sinusitis 83768227 J32.0 2493 Asthma - c urrently active 307188536 J45.909 778603 Allergic rhinitis 954366 04 J30.89 Health Concerns Section Related Observation LastModified by Organization Detai ls LastModified Time None Recorded Concern Status LastModified by Organization Details LastModified Time None Recorded Advance Directives Directive None Recorded Payers Insurance Date Sequence Insurance Name Policy Number Policy Qiu Covered Member ID Qiu Member ID Guarantor Name 10/12/2025 1 [place] [facility] Fawad Reed [id number] Fawad Reed 10/12/2025 2 [facility] NET PLAN (MEDICAID HMO) [facility] Fawad Reed [id number] Fawad Reed 10/12/2025 1 [facility] [id number] Arturo Chavira Jann [id number] Fawad Reed Notes Date Note Type Note Provider Name and Address Organization Details Recorded Time 06/28/2025 text/html ROS as noted in the HPI 25-year-old female presents for evaluation of recurrent ear and sinus infections. She has had longstanding nasal congestion and recurrent sinus pressure. When she has sinus pressure she also has diminished hearing and often is told she has an ear infection when she has the symptoms though she has no fever or pain in her ears. She also has snoring without apnea. Currently using Flonase which has helped somewhat with nasal congestion but not fully relieved. Occasionally has nosebleeds. No significant seasonal allergy symptoms but has never had any testing. BEE BAIRD PA-C 100 [facility] 100, [place], [address], [facility] 06/28/2025 11:24:08 08/15/2025 text/html ROS as noted in the HPI 25-year-old patient presents for reevaluation of nasal congestion. They continue to have chronic nasal congestion with postnasal drip. Occasionally they have sinus congestion as well. Tested for allergies as a child which was fairly unremarkable. Also had allergy testing as recommended. Noted to have septal deviation at last visit. Espinoza Mcleod, DO 100 [facility] 100, [place], [address], [facility] 08/15/2025 16:44:38 09/07/2025 text/html Allergy Test 07/2025: Joel, birch, maple, oak, cedar, grass, dust, weed, tyshawn, Alternaria, Fusarium, Mucor, penicillin, Previous visit, Bee 25-year-old patient presents for reevaluation of nasal congestion. They continue to have chronic nasal congestion with postnasal drip. Occasionally they have sinus congestion as well. Tested for allergies as a child which was fairly unremarkable. Also had allergy testing as recommended. Noted to have septal deviation at last visit. Interval history: Jose C Reed is a 25-year-old female who presents with recurrent nasal congestion, sneezing fits, and significant nasal drainage. She reports using three boxes of tissues weekly due to nasal discharge. Allergy testing revealed sensitivities to trees, dust, grass, weeds, and molds, contributing to year-round allergies. She experiences exacerbations of asthma symptoms, including shortness of breath and occasional emergency room visits for difficulty breathing, though she has not had life-threatening asthma attacks. Her asthma is currently managed with a rescue inhaler, which she uses variably, but she is not on a maintenance inhaler due to a lapse in prescription renewal. She has a history of diabetes and hypothyroidism, likely Johnson's thyroiditis, which may contribute to recurring infections, including frequent urinary tract infections. She has tried Flonase intermittently for nasal congestion but finds it drying and uses it only a few times per month. She expresses interest in pursuing allergy immunotherapy to address her symptoms and prefers to delay surgical intervention for mild sinus disease identified on a prior CT scan. Espinoza Mcleod, DO 100 [facility] 100, [place], [address], [place] - [facility] 09/07/2025 14:39:59 OBGyn Episode No OBEpisode recorded.
--- OUTSIDE RECORDS SUMMARY | 2025-10-17 17:25 | XMS_ITS | Continuity of Care Document ---
Author Organization [place] - [facility], Allergy Address [address] [place] [address] Care Team Providers Care Director Of Audiology Name Role Phone FARTUN BISHOP Referring Provider Assessment No assessment recorded. Plan of Treatment Reminders Order Date Submit Date Provider Last Modified By Organization Details Last Modified Time Details Appointments Establish ed 15 2025 01:00P Tree BAIRD PA-C Not available Not available Not available Lab None recorded. Referral None recorded. Procedures None recorded. Surgeries None recorded. Imaging None recorded. Medication Orders None recorded. Patient TargetsNo targets recorded. Patient Instructions Encounter Date Encounter Id Patient Instructions Last Modified By Organization Details Last Modified Time 07/20/2025 [id number] spirometry testing* [email or web address] Not available 07/21/2025 11:57:40 Reason for Referral None Reported. Results Created Date Observation Date Name Description Value Unit Range Abnormal Flag Note LastModifiedBy Organization Detail LastModifiedTime 06/28/20 25 audio gram No observ ation record ed. BARCODE Not Available 2024 12:29:50 07/20/20 25 altagracia metry testi ng* No observ ation record ed. [email or web address] Not Available 2024 13:17:58 08/15/[address], sinus es, w/o contr ast No observ ation record ed. alberta Ents [address], [place], [address], 08/15/2025 13:00:47 09/10/20 25 08/15/2025 CT, sinus es, w/o contr ast No observ ation record ed. [email or web address] [facility] [address], [place], [address], 09/10/2025 13:54:52 Result Notes None recorded. Problems Name Problem SNOMED Code Status Onset Date Resolution Date Notes Provider Name and Address Organization Details Recorded Time Abnormal auditory perception 73961361 Active 025 FORTUNATO POSADA, AUD 100 [facility],[address] [address], [place], [address], [facility] - [facility] [place] 5 10:28:07 Nasal congestion 41416966 Active 025 BEE BAIRD PA-C [address] [place] [address], [place], [address], [facility] - [facility] [place] 5 11:23:02 Deviated nasal septum 595683555 Active 025 BEE BAIRD PA-C [address] [address], [place], [address], [facility] - [facility] [place] 5 11:23:09 Perennial allergic rhinitis 438199928 Active 025 JACOBO IBARRA, A [address] [address], [place], [address], [facility] - [facility] [place] 5 13:11:27 Chronic maxillary sinusitis 03474500 Active 025 BEE BAIRD PA-C [address], [address], [facility] - [facility] [place] 5 13:00:00 Asthma - currently active 015873830 Active 025 Espinoza Mlceod [address] [address], [place], [address], [facility] - [facility] [place] 5 14:26:16 Allergic rhinitis 55783974 Active 025 Espinoza Mcleod DO [address] [place] [address], [place], [address], [facility] 5 14:37:12 Problem Notes None recorded. Procedures Surgical History Date Name Laterality Status Provider Name and Address Organization Details Recorded Time Allergy Testing-Full completed JACOBO IBARRA, RMA [address], [place], [address], [facility] 07/20/2025 14:27:21 Air & Speech Audio with Tymps - 71167, 949[address] & [address] completed FORTUNATO POSADA, AUD [address], [place], [address], [facility] 06/28/2025 10:27:56 Imaging Results None recorded. Procedure Notes None recorded. Medical Equipment None Reported. Allergies Allergen ID Allergen Name Allergen Category Reaction Reaction Severity Criticality Documentation Date Start Date Code Code System Note Provider Name and Address Organization Details Recorded Time 133415 gabapenti n medicatio n fever mild Not available 07/20/2025 21006 RxNorm JACOBO ZENDEJAS, A 100 [facility] [place], [place], [address], [facility] 5 13:09:06 505719 guanfacin e medicatio n decreased blood pressure severe Not available 07/20/2025 02674 RxNorm JACOBO CRISTIANA, RMA [address] [place], [place], [address], [facility] 5 13:09:06 434599 metformin medicatio n other moderate Not available 07/20/2025 6809 RxNorm JACOBO MORELANDC, A [address] [place], [place], [address], [facility] 13:09:06 Medications Name Sig Start Date Stop [...] and Address Organization Details Last Updated DateTime 163.83 cm 99 % 87 /min 45.6 kg/m2 063124. 94 g 135/86 mm[Hg] JACBOO IBARRA, [facility] [address] [facility], [place], [address], [place] - [facility] 13:08:44 Social History Question Answer Notes LastModified by Organizat ion Details LastModified Time Tobacco Smoking Status Current Some Day Smoker JACOBO IBARRA, [facility] 100 [facility] [address], [place], [address], [facility] - [facility] 07/20/2025 13:09:19 How Many Years Have You Consumed Alcohol? 10 Information not available 07/20/2025 What Type Of Air Conditioning Mechanic Do You Use? None Information not available [...] Y Eczema Y Other Skin Condition Y Nasal polyps N COPD N Gynecological HistoryNo gynecological history recorded. Obstetrics History GPAL:G 0 P 0 0 0 0 Past Encounters Encounter ID Performer Location Encounter Start Date Encounter Closed Date Diagnosis/Indication Diagnosis SNOMED-CT Code Diagnosis ICD10 Code Diagnosis IMO Codes Diagnosis Note [id number] BEE BAIRD PA-C [facility] of [address] [address] 06/28/2025 10:11:08 06/28/2025 10:45:34 Abnormal auditory perception 19848038 H93.293 [id number] Audiologic al evaluation results: 06/28/2025 Right ear: Normal hearing with excellent word recognitio n. Left ear: Normal hearing with excellent word recognitio n. Tympanomet ry: Right Ear:Type A Left Ear:Type A Nasal congestion 2281146 0 R09.81 11788 Deviated nasal septum 12 2895603 J34.2 [id number] JACOBO ZENDEJAS, RMA Allergy [address] [place] [address] [address] 07/20/2025 12:45:21 07/20/2025 14:28:13 Perennial allergic rhinitis 182991437 J30.89 [id number] Health Concerns Section Related Observation LastModified by Organization Detai ls LastModified Time None Recorded Concern Status LastModified by Organization Details LastModified Time None Recorded Payers Encounter Date Sequence Insurance Name Policy Number Policy Qiu Covered Member ID Qiu Member ID Guarantor Name 07/20/2025 2 [facility] (MEDICAID HMO) PABLO Reed [id number] Fawad Reed 07/20/2025 1 [facility] [id number] Arturodamian Chavira Jann [id number] Fawad Reed OBGyn Episode No OBEpisode recorded.
--- OUTSIDE RECORDS SUMMARY | 2025-10-17 17:25 | XMS_ITS | Clinical Summary ---
Author Organization [facility] Address [address] [facility] [address] [place] [address] Phone Care Team Providers Care Brush Painter Name Role Phone Pcp, Unknown Primary Care [...] Assigned at Not on file Legal Sex Female 9:58 PM EDT Gender [...] HIV ONE-TIME SCREENING (18-6 5 YEARS) 02/22/2016 PAP SMEAR 2019 TSH LEVEL 02/15/2025 02/16/2024, 12/25/2023, 08/13/2021 INFLUENZA VACCINE (#1) 2025 COVID-19 VACCINE ( - 2024-2 6 season) 2025 Adult Td,Tdap Booster 02/26/2029 02/26/2019 [...] on patient's age to complete this topic PNEUMOCOCCAL VACCINES (0-49 years) Aged Out No longer eligible b ased on patient's age to complete this topic Medical Devices Not on file Insurance [employer] [place] [address] [place] [address] [place] [address] [place] [address] ACO Care Teams Brush Painter Relationship Specialty Start Date End Date Pcp, Unknown PCP - General 10/25/24 Additional Source Comments The information contained in this document represents components of the legal health record. It is not the complete legal health record.[facility]
--- OUTSIDE RECORDS SUMMARY | 2025-10-17 17:25 | XMS_ITS | Continuity of Care Document ---
Author Organization [place] - [facility], [facility] Address [address] [place] [address] Care Team Providers Care Farm Equipment Service Technician Name Role Phone MARTÍNFARTUN BEARD Referring Provider Assessment Encounter Date Assessment Date Assessment LastModified by Organization Details LastModified Time 09/07/2025 09/07/2025 25-year-old patient presents for revaluation [...] 2024 025 [email or web address] Not available 09/22/2025 13:35:36 Surgeries None recorded. Imaging None recorded. Medication Orders epinephri ne 0.3 mg/0.3 mL injection , auto-inje ctor 2024 025 [facility] #[id number], [address] [facility] [place], [address], 09/07/2025 15:14:50 Patient TargetsNo targets recorded. Patient Instructions Encounter Date Encounter Id Patient Instructions Last Modified By Organization Details Last Modified Time 09/07/2025 [id number] - Begin allergy immunotherapy as recommended. - [...] Abnormal Flag Note LastModifiedBy Organization Detail LastModifiedTime 08/15/[address], sinus es, w/o contr ast No observ ation record ed. [email or web address] Ents [facility] 100 [facility], [place], [address], 08/15/2025 13:00:47 09/10/2008/15/2025 CT, sinus es, w/o contr ast No observ ation record ed. [email or web address] [address] [facility] [address], [place], [address], 09/10/2025 13:54:52 Result Notes None recorded. Problems Name Problem SNOMED Code Status Onset Date Resolution Date Notes Provider Name and Address Organization Details Recorded Time Abnormal auditory perception 14628776 Active 025 FORTUNATO POSADA, [facility] [address], [address], [facility] - [facility] [place] 5 10:28:07 Nasal congestion 07377132 Active 025 BEE BAIRD PA-C [address] [place] [address], [address], [place] - [facility] [place] 5 11:23:02 Deviated nasal septum 363323180 Active 025 BEE BAIRD PA-C [address] [place] [address], [address], [facility] - [facility] [place] 5 11:23:09 Perennial allergic rhinitis 817971809 Active 025 JACOBO ZENDEJAS, [facility] [address], [address], [place] [facility] [place] 5 13:11:27 Chronic maxillary sinusitis 49178567 Active 025 BEE BAIRD PA-C [address] [place] [address], [address], [facility] - [facility] [place] 13:00:00 Asthma - currently active 799950116 Active 025 Espinoza Mcleod, DO [address], [address], [facility] - [facility] 5 14:26:16 Allergic rhinitis 31693673 Active 025 Espinoza Manningfgren, DO [address], [place], [address], [facility] - [facility] 5 14:37:12 Problem Notes None recorded. Procedures Surgical History Date Name Laterality Status Provider Name and Address Organization Details Recorded Time Allergy Testing-Full completed JACOBO ZENDEJASC, RMA 100 [facility] [place],[address], [place], [address], [facility] - [facility] 07/20/2025 14:27:21 Air & Speech Audio with Tymps - 82469, [address] & [address]7586 completed FORTUNATO POSADA, [facility] 100 [facility] [place],[address] [address], [place], [address], [facility] - [facility] 06/28/2025 10:27:56 Imaging Results None recorded. Procedure Notes None recorded. Medical Equipment None Reported. Allergies Allergen ID Allergen Name Allergen Category Reaction Reaction Severity Criticality Documentation Date Start Date Code Code System Note Provider Name and Address Organization Details Recorded Time 413587 gabapenti n medicatio n fever mild Not available 07/20/2025 71963 RxNorm JACOBO MORELANDZEC, RMA [address], [place], [address], [facility] 13:09:06 530266 guanfacin e medicatio n decreased blood pressure severe Not available 07/20/2025 25401 RxNorm JACOBO MORELANDZEC, RMA [address], [place], [address], [facility] - [facility] 13:09:06 408147 metformin medicatio n other moderate Not available 07/20/2025 6809 RxNorm JACOBO MORELANDZEC, RMA [address], [place], [address], [facility] - [facility] 13:09:06 Medications Name Sig Start Date [...] t Available Vitals Date Recorded Body height Body mass index (BMI) Body weight Provider Name and Address Organization Details Last Updated DateTime 09/07/2025 163.83 cm 46.5 kg/m2 415559.9 g Alisha Brown [place] - [facility] 09/07/2025 14:24:16 Social History Question Answer Notes LastModified by Organizat ion Details LastModified Time Tobacco Smoking Status Current Some Day Smoker JACOBO ZENDEJAS, [address], [address], [facility] - [facility] 07/20/2025 13:09:19 How Many Years Have You Consumed Alcohol? 10 Information not available 07/20/2025 What Type Of Sea Captain Do You Use? None Information not available [...] ICD10 Code Diagnosis IMO Codes Diagnosis Note [id number] BEE BAIRD PA-C [facility] of [address] [address] 08/15/2025 11:28:14 08/15/2025 12:12:34 Deviated nasal septum 169413298 J34.2 037512 Perennial allergic rhinitis 385607128 J30.89 186737 Nasal congestion 1744996 0 R09.81 27551 Chronic ma xillary sinusitis 00923743 J32.0 2493 [id number] Espinoza Mcleod DO [facility] of [address] [address] 09/07/2025 14:12:29 09/07/2025 14:39:39 Deviated nasal septum 707854348 J34.2 088750 Perennial allergic rhinitis 198478752 J30.89 468312 Nasal congestion 8866526 0 R09.81 17632 Chronic ma xillary sinusitis 27056138 J32.0 2493 Asthma - c urrently active 555802139 J45.909 561921 Allergic rhinitis 755364 04 J30.89 Health Concerns Section Related Observation LastModified by Organization Detai ls LastModified Time None Recorded Concern Status LastModified by Organization Details LastModified Time None Recorded Payers Encounter Date Sequence Insurance Name Policy Number Policy Qiu Covered Member ID Qiu Member ID Guarantor Name 09/07/2025 2 [facility] PLAN (MEDICAID HMO) PABLO Reed [id number] Fawad Reed 09/07/2025 1 [facility] [id number] Arturo Forte [id number] Fawad Reed Notes Date Note Type Note Provider Name and Address Organization Details Recorded Time 09/07/2025 text/html Allergy Test 07/2025: Joel, birch, [...] on a prior CT scan. Espinoza Mcleod, [address] [address], [place], [address], [facility] - [facility] 09/07/2025 14:39:59 OBGyn Episode No OBEpisode recorded.
--- OUTSIDE RECORDS SUMMARY | 2025-10-17 17:25 | XMS_ITS | Encounter Summary ---
Author Organization [facility] Address [address] [place] [address] Care Team Providers Care Fiber Glass Worker Name Role Phone Unknown Pcp, Non Php Primary Care Provider Unava ilable Encounter Details Date Type Department Care Team (Late st Contact Info) Description 02/16/2024 Orders Only [facility] Primary Care [address] [place] [address] Zulema Golden PA [address] [facility] [address] [place] [address] Social History Tobacco Use Types Packs/Day Years [...] Type Associated Problems Recent Progress Patient-Stated? Author Quit smoking / using tobacco Lifestyle No [...] at . Any insurance accepted. Quit smoking resources-[email or web address] HEMOGLOBIN A1C % < 7 Result Component [...] of this encounter Procedures * Due to [place] state law, this organization might not be sharing [...] in this encounter Results * Due to [place] state law, this organization might not be sharing negative HIV tests. * (ABNORMAL) T4, FREE, SERUM (02/16/2024 2:58 PM EDT) FT4 1.86(H) 0.70 - 1.80 ng/dL [facility] 02/16/2024 2:58 PM EDT 02/16/2024 9:53 PM EDT Narrative [facility] - 02/17/2024 1:44 AM EDT Testing Performed at: [facility], [address] [place] [address], , Vp: Sherice Auguste MD CL#[id number] [facility] Final Resul t [facility] [address] [place] [address]. [place] [address], * (ABNORMAL) THYROID STIMULATING HORMONE (TSH) WITH FREE T4 REFLEX, SERUM (02/16/2024 2:58 PM EDT) TSH (Thyrotropin) 0.42(L) 0.50 - 4.80 uIU/ml [facility] 02/16/2024 2:58 PM EDT 02/16/2024 9:53 PM EDT Narrative [facility] - 02/16/2024 10:58 PM EDT Track Order?->No Release result to patient->Immediate Testing Performed at: [facility], [address] [place] [address], , Vp: Sherice Auguste MD CL#[id number] [facility] Final Resul t Performing Organization Address [facility] de Phone Number [facility] [address] [place] [address], * HEMOGLOBIN A1C (02/16/2024 2:58 PM EDT) Hemoglobin A1C 5.8 4.3 - 6.1 %A1C [facility] Comment: 5.7-6.4 Increased Risk of Diabetes >6.4 Consistent with Diabetes The [place] [employer] recommends a goal of less than 7% for diabetic patients. 02/16/2024 2:58 PM EDT 02/16/2024 9:53 PM EDT Narrative [facility] - 02/16/2024 10:22 PM EDT Track Order?->No Release result to patient->Immediate FASTING: NO Testing Performed at: [facility], [address] [place] [address], , Vp: Sherice Auguste MD CL#[id number] [facility] Final Resul t Performing Organization Address [facility] de Phone Number [facility] [address] [place] [address], documented in this encounter Visit Diagnoses Diagnosis Type 2 diabetes mellitus without complication, without long-term current use of insulin (HCC) Acquired hypothyroidism Unspecified hypothyroidism documented in this encounter Care Teams Fiber Glass Worker Relationship Specialty Start Date End Date Unknown Pcp, Non Php PCP - General 03/01/25 documented as of this encounter
--- OUTSIDE RECORDS SUMMARY | 2025-10-17 17:25 | XMS_ITS | Encounter Summary ---
Author Organization [facility] Address [address] [place] [address] Care Team Providers Care Process Analyst Name Role Phone Unknown Pcp, Non Php Primary Care Provider Unava ilable Reason for Visit * Reason Comments Results Encounter Details Date Type Department Care Team ([facility] st Contact Info) Description 12/26/2023 Telephone [facility] Primary Care [address] [place] [address] Zulema Golden PA [address] [facility] [address] [place] [address] Results Social History Tobacco Use Types Packs/Day [...] EST Please see * Telephone Encounter - aMry Castro - 12/26/2023 1:00 PM EST Patient is looking for lab results please. Patient would like any potential medications sent to [facility] today as he is leaving [facility] for family emergency. Thank you documented in this encounter Plan of Treatment Not on file documented as of this encounter Visit Diagnoses Not on filedocumented in this encounter Care Teams Process Analyst Relationship Specialty Start Date End Date Unknown Pcp, Non Php PCP - General 03/01/25 documented as of this encounter
--- OUTSIDE RECORDS SUMMARY | 2025-10-17 17:25 | XMS_ITS | Clinical Summary ---
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 Schizoaffective disorder, depressive type ([facility]) 11/12/2017 Immunizations Immunization Administration Dates Next Due Pfizer Purple Cap SARS-COV-2 Vaccination 021,01/31/2021 Social History Tobacco Use Types Packs/Day Years Used Date Smoking Tobacco: Some Days Smokeless Tobacco: Never Comments Unknown Sex and Gender Information Value Date Recorded Sex Assigned at Female 04/25/2020 7:22 AM EDT Legal Sex Nonbinary 12/02/2022 11:15 PM EST Gender Identity Not Listed 12/02/2022 11:15 PM EST Sexual Orientation Bisexual [...] Pap Smear 2019 COVID-19 Vaccine (3 - 2024-2 6 season) 2025 02/22/2021, 01/31/2021 Influenza Vaccine (#1) 2025 HIB [...] ID:Not on file Type:Not on file Address: [address] Care Teams Children'S Minister Relationship Specialty Start Date End Date Zulema Golden PA [address] [facility] 1 [address] [place] [address] PCP - General Internal Medicine 12/30/19
--- OUTSIDE RECORDS SUMMARY | 2025-10-17 17:25 | XMS_ITS | Clinical Summary ---
Author Organization [facility] Prior to 03/19/[address] [place] [address] Care Team Providers Care Classified Advertising Manager Name Role Phone Zulema Golden Primary Care Provider [phone] Allergies Active Allergy Reactions Criticality Noted Date [...] Cancer Screening (Pap Smear) 2019 COVID-19 Vaccine (2024-2 6 season) 2025 02/22/2021, 01/31/2021 Influenza Vaccine (#1) 2025 07/22/2013 Pneumococcal Vaccine Aged Out No long er eligible based on patient's age to complete this topic RSV Ped < 20 months Aged Out No longe r eligible based on patient's age to complete this topic Care Teams Classified Advertising Manager Relationship Specialty Start Date End Date Zulema Golden PA [address] [place] [address] PCP - General Director Of Preclinical Research 01/31/21
--- OUTSIDE RECORDS SUMMARY | 2025-10-17 17:25 | XMS_ITS | Clinical Summary ---
Author Organization [facility] Address [address] [place] [address] Care Team Providers Care Recruitment Specialist Name Role Phone Unknown Pcp, Non Php Primary Care Provider Unava ilable Allergies Active Allergy Reactions Criticality Noted Date Comments Gabapentin 02/26/2019 [facility] Comment: [id number]: fever Guanfacine Hcl Er 02/26/2019 [facility] Comment: [id number]: hypotensive Medications Escitalopram Oxalate (LEXAPRO) 20 MG tablet TAKE 1 TABLET BY MOUTH EVERY DAY 30 0 02/26/2019 Active Blood Glucose Monitoring Suppl (Accu-Chek Guide) w/Device Kit USE DIRECTED. 0 11/18/2022 Active Amphetamine-Dext roamphetamine (ADDERALL , 7.5MG,) 7.5 MG tablet Take 7.5 mg by mouth 1 (one) time each day. Active Levothyroxine Sodium (SYNTHROID, LEVOTHROID) 175 MCG tabletIndication s:Hypothyroidism , unspecified type TAKE 1 TABLET (175 MCG TOTAL) BY MOUTH EVERY DAY. 90 tablet 2 06/16/2024 Active Albuterol (Ventolin HFA) 90 mcg/ACT inhaler INHALE 1 TO 2 PUFFS BY MOUTH FOUR TIMES DAILY NEEDED. 18 each 07/14/2024 Active Active Problems Problem Noted Date Diagnosed [...] we will adjust dose as needed. Immunizations Immunization Administration Dates Next Due COVID-19, [...] 2 - PCV) 2017 HA1C 08/17/2024 02/16/2024, 0 04/2024, 03/25/2022, Additional history exists LDL Cholesterol 12/24/2024 12/25/2023, 03/2022, 03/25/2022, Additional history exists Microalbumin 12/24/2024 12/25/2023 COVID-19 Vaccine ( season) 2025 02/22/2021, 01/31/2021 Influenza (#1) 2025 07/23/2022, 10/2020, 07/06/2020, Additional history exists GFR 05/08/2026 05/08/2025, 0 04/2024, 06/23/2022, Additional history exists DTaP/Tdap/Td (2 [...] at . Any insurance accepted. Quit smoking resources-http://Eyesquad.org HEMOGLOBIN A1C % < 7 Result Component [...] 120 is ideal. Procedures * Due to [place] [employer] law, this organization might not be sharing [...] to Health Maintenance Results * Due to [place] [employer] law, this organization might not be sharing negative HIV tests. * HEMOGLOBIN A1C (02/16/2024 2:58 PM EDT) Hemoglobin A1C 5.8 4.3 - 6.1 %A1C [facility] Comment: 5.7-6.4 Increased Risk of Diabetes >6.4 Consistent with Diabetes The [place] [employer] recommends a goal of less than 7% for diabetic patients. 02/16/2024 2:58 PM EDT 02/16/2024 9:53 PM EDT Narrative [facility] - 02/16/2024 10:22 PM EDT Track Order?->No Release result to patient->Immediate FASTING: NO Testing Performed at: [facility], [address] [place] [address], , Airset Caster: Sherice Auguste MD CL#[id number] [facility] Final Resul t Performing Organization Address [facility] de Phone Number [facility] [address] [place] [address], * ALBUMIN (MICROALBUMIN), RANDOM URINE, WITH CREATININE (12/25/2023 2:18 PM EST) Albumin (Urine) 8 0 - 23 mg/L [facility] Creatinine (Urine) 168 60 - 200 mg/dL [facility] 12/25/2023 2:18 PM EST 12/25/2023 6:07 PM EST Narrative [facility] - 12/25/2023 9:26 PM EST Microalbumin<12.0, Alb/Creat Ratio Invalid Testing Performed at: [facility], [address] [place] [address], , Airset Caster: Sherice Auguste MD CL#[id number] Zulema [facility] Final Resul t Performing Organization Address [facility] Co de Phone Number [facility] [address] [place] [address], * (ABNORMAL) LIPID PANEL WITH REFLEX TO DIRECT LDL (12/25/2023 2:18 PM EST) Cholesterol 233(H) 0 - 199 mg/dL [facility] Triglyceride 204(H) 0 - 150 mg/dL [facility] VLDL Cholesterol 41(H) 5 - 40 mg/dL [facility] HDL Cholesterol 44(L) 50 - 80 mg/dL [facility] LDL Cholesterol 148(H) 0 - 100 mg/dL [facility] Cholesterol Non-HDL 189(H) 0 - 130 mg/dl [facility] CHOL/HDL Ratio 5.2 [facility] 12/25/2023 2:18 PM EST 12/25/2023 6:07 PM EST Narrative [facility] - 12/25/2023 6:54 PM EST FASTING: NO Fasting reference interval. [employer] Lipid testing results require a 12 hour fasting specimen. Use caution when interpreting non-fasting cholesterol and triglyceride results. Testing Performed at: [facility], [address] [place] [address], , Airset Caster: Sherice Auguste MD CL#[id number] us Zulema Golden [place] [facility] Final Resul t [facility] [address] [place] [address]. [place] [id number], * (ABNORMAL) COMPREHENSIVE METABOLIC PANEL WITH GFR (12/25/2023 2:18 PM EST) Glucose 76 65 - 99 mg/dL [facility] Comment:Fasting Reference In terval Urea Nitrogen Blood (BUN) 12 6 - 20 mg/dL [facility] Creatinine 0.9 0.4 - 1.1 mg/dL [facility] GFR 121 >=60 [facility] Comment: Units of measure for estimated Glomular Filtration Rate: mL/min/1.73m2. eGFR calculation is only valid for adults 18-85 years of age. Stages of Chronic Kidney Disease Stage GFR 3 30-59 4 15-29 5 <15 Sodium 140 133 - 145 mmol/L [facility] Potassium 4.7 3.3 - 5.3 mmol/L [facility] Chloride 96 96 - 108 mmol/L [facility] Bicarbonate 29 22 - 32 mmol/L [facility] Anion gap 3 15 [facility] Calcium 9.3 8.6 - 10.5 mg/dL [facility] Protein Total (Serum) 7.5 6.2 - 8.2 g/dL [facility] Albumin 4.6 3.5 - 5.2 g/dl [facility] Alkaline phosphatase 108(H) 35 - 105 U/L [facility] AST (SGOT) 20 4 - 32 U/L [facility] ALT (SGPT) 20 4 - 33 U/L [facility] Bilirubin Total 0.3 0.1 - 1.0 mg/dL [facility] Globulin 2.9 1.4 - 4.8 g/dl [facility] Albumin/Globulin 2 1 - 3 [facility] Osmolality 269 253 - 285 mOsm/kg [facility] BUN/Creatinine Ratio 13 6 - 25 [facility] 12/25/2023 2:18 PM EST 12/25/2023 6:07 PM EST Narrative [facility] - 12/25/2023 8:08 PM EST FASTING: NO Testing Performed at: [facility], [address] [place] [address], , Airset Caster: Sherice Auguste MD CL#[id number] Zulema Golden [place] [facility] Final Resul t [facility] [address] [place] [address]. [place] [address], * HEPATITIS C ANTIBODY W/ REFLEX TO [...] 12/07/2021 7:33 PM EST Testing Performed at: [facility], [address] [place] [address], [place] [address], , Airset Caster: Sherice Auguste MD CL#[id number] us Zulema [facility] Final Resul t Performing Organization Address [facility]/ZIP Co de Phone Number PHCT CONVERSIONS * PPD SKIN TEST (05/20/2019 5:22 PM EDT) # OF MM INDURATION (NOT REDNESS) 0 PH[facility] CONVERSIONS 05/20/2019 5:22 PM EDT us Jann Hastings MD PROCEDURES Final Result Performing Organization Address City/[facility] Co de Phone Number PHCT CONVERSIONS from Last 3 Months or Most Recently Relevant to Health Maintenance Insurance [facility] PPO Care Teams Recruitment Specialist Relationship Specialty Start Date End Date Unknown Pcp, Non Php PCP - General 03/01/25
--- OUTSIDE RECORDS SUMMARY | 2025-10-17 17:26 | XMS_ITS | Continuity of Care Document ---
Author Organization [place] [facility], [facility] Address [address] [place] [address] Care Team Providers Care Medical Record Consultant Name Role Phone FARTUN BISHOP Referring Provider [phone] Assessment Encounter Date Assessment Date Assessment LastModified by Organization Details LastModified Time 08/15/2025 08/15/2025 25-year-old patient presents for reevaluation. [...] discussed the risk of anaphylaxis with this. [email or web address] Not available 08/15/2025 12:59:42 Plan of Treatment Reminders Order Date Submit Date Provider Last Modified By Organization Details Last Modified Time Details Appointments Establish ed 15 2025 01:00P Tree BAIRD PA-C Not available Not available Not available Lab None recorded. Referral None recorded. Procedures None recorded. Surgeries None recorded. Imaging CT, sinuses, w/o contrast 2024 [address] [place] [address] [address], [address], 08/15/2025 13:00:49 Medication Orders None recorded. Patient TargetsNo targets recorded. Patient InstructionsNo instructions recorded. Reason for Referral None Reported. Results Created Date Observation Date Name Description Value Unit Range Abnormal Flag Note LastModifiedBy Organization Detail LastModifiedTime 07/20/20 25 altagracia metry testi ng* No observ ation record ed. [email or web address] Not Available 2024 13:17:58 08/15/20 CT, sinus es, w/o contr ast No observ ation record ed. [place] [address] [address], [address], 08/15/2025 13:00:47 09/10/20 25 08/15/2025 CT, sinus es, w/o contr ast No observ ation record ed. angelo [facility] Of [address], [address], 09/10/2025 13:54:52 Result Notes None recorded. Problems Name Problem SNOMED Code Status Onset Date Resolution Date Notes Provider Name and Address Organization Details Recorded Time Abnormal auditory perception 69669590 Active 025 FORTUNATO POSADA, [address], [address], [place] [facility] [place] 5 10:28:07 Nasal congestion 28681291 Active 025 BEE BAIRD PA-C [address] [facility], [place], [address], [place] - [facility] 5 11:23:02 Deviated nasal septum 091897276 Active 025 BEE BAIRD PA-C 100 [facility],[address], [place], [address], [place] [facility] [place] 5 11:23:09 Perennial allergic rhinitis 501035484 Active 025 JACOBO IBARRA, [facility] [address] [facility], [place], [address], [place] [facility] [place] 5 13:11:27 Chronic maxillary sinusitis 79964169 Active 025 BEE BAIRD PA-C 100 [facility], E [facility], [place], [address], [place] - [facility] [place] 5 13:00:00 Asthma - currently active 731073885 Active 025 Espinoza Mcleod [address] [facility], [place], [address], [place] - [facility] 5 14:26:16 Allergic rhinitis 02356965 Active 025 Espinoza Mcleod [address] [facility], [place], [address], [facility] - [facility] [place] 5 14:37:12 Problem Notes None recorded. Procedures Surgical History Date Name Laterality Status Provider Name and Address Organization Details Recorded Time Allergy Testing-Full completed JACOBO IBARRA, A [address] [facility], [place], [address], [place] - [facility] 07/20/2025 14:27:21 Air & Speech Audio with Tymps - 42622, 13925 & 40791 completed FORTUNATO POSADA, AUD [address], [place], [address], [facility] 06/28/2025 10:27:56 Imaging Results None recorded. Procedure Notes None recorded. Medical Equipment None Reported. Allergies Allergen ID Allergen Name Allergen Category Reaction Reaction Severity Criticality Documentation Date Start Date Code Code System Note Provider Name and Address Organization Details Recorded Time 825861 gabapenti n medicatio n fever mild Not available 07/20/2025 96181 RxNorm JACOBO KORZEC, RMA [address], [facility] [place], [address], [facility] 5 13:09:06 182309 guanfacin e medicatio n decreased blood pressure severe Not available 07/20/2025 98519 RxNorm JACOBO KORZEC, RMA [address], [place], [address], [facility] 5 13:09:06 248398 metformin medicatio n other moderate Not available 07/20/2025 6809 RxNorm JACOBO KORZEC, RMA [address], [place], [address], [facility] 5 13:09:06 Medications Name Sig Start Date Stop [...] Available Not Available No t Available Vitals None Recorded Social History Question Answer Notes LastModified by Organizat ion Details LastModified Time Tobacco Smoking Status Current Some Day Smoker [facility], [facility] 100 [facility],[place] [address], [place], [address], [facility] - [facility] 07/20/2025 13:09:19 How Many Years Have You Consumed Alcohol? 10 Information not available 07/20/2025 What Type Of Collections Attorney Do You Use? None Information not available [...] ICD10 Code Diagnosis IMO Codes Diagnosis Note 14527 JACOBO IBARRA, RMA Allergy 100 [facility],[place] [address] [place] [id number] 07/20/2025 12:45:21 07/20/2025 14:28:13 Perennial allergic rhinitis 926143610 J30.89 554279 74123 BEE BAIRD PA-C [facility] - [facility] [address] [place] [address] 08/15/2025 11:28:14 08/15/2025 12:12:34 Deviated nasal septum 321119894 J34.2 977534 Perennial allergic rhinitis 954179804 J30.89 778372 Nasal congestion 3982301 0 R09.81 31381 Chronic ma xillary sinusitis 27823247 J32.0 2493 Health Concerns Section Related Observation LastModified by Organization Detai ls LastModified Time None Recorded Concern Status LastModified by Organization Details LastModified Time None Recorded Payers Encounter Date Sequence Insurance Name Policy Number Policy Qiu Covered Member ID Qiu Member ID Guarantor Name 08/15/2025 2 [facility] - HEALTH NET PLAN (MEDICAID HMO) [facility] Fawad Reed [id number] Fawad Reed 08/15/[address] [facility] [id number] Arturo Forte [id number] Fawad Reed Notes Date Note Type Note Provider Name and Address Organization Details Recorded Time 08/15/2025 text/html ROS as noted in the HPI 25-year-old patient presents for reevaluation of nasal congestion. They continue to have chronic nasal congestion with postnasal drip. Occasionally they have sinus congestion as well. Tested for allergies as a child which was fairly unremarkable. Also had allergy testing as recommended. Noted to have septal deviation at last visit. Espinoza Mcleod, DO 100 [facility] [address], [place], [address], [facility] - [facility] 08/15/2025 16:44:38 OBGyn Episode No OBEpisode recorded.
--- OUTSIDE RECORDS SUMMARY | 2025-10-17 17:26 | XMS_ITS | Encounter Summary ---
Author Organization [facility] Address [address] [place] [address] Care Team Providers Care Hand Potter Name Role Phone Unknown Pcp, Non Php Primary Care Provider Unava ilable Reason for Visit * Reason Comments E-prescribing Refill Request Encounter Details Date Type Department Care Team (Late st Contact Info) Description 06/21/2025 Refill [facility] [address] [place] [address] Zulema Golden PA [address] [facility] [address] [place] [address] E-prescribing Refill Request Social History Tobacco Use [...] at . Any insurance accepted. Quit smoking resources-http://makesCertica Solutionstory.org HEMOGLOBIN A1C % < 7 Result Component [...] hyperlipidemia documented in this encounter Care Teams Hand Potter Relationship Specialty Start Date End Date Unknown Pcp, Non Php PCP - General 03/01/25 documented as of this encounter
--- OUTSIDE RECORDS SUMMARY | 2025-10-17 17:26 | XMS_ITS | Encounter Summary ---
Author Organization [facility] Address [address] [place] [address] Care Team Providers Care Floral Manager Name Role Phone Zulema Golden Primary Care Provider Encounter Details Date Type Department Care Team (Latest Contact Info) Description 05/05/2020 Scanned Document [facility] [address] [place] [id number] System, Provider Not In 12/31/2019 [facility] [...] on filedocumented in this encounter Care Teams Floral Manager Relationship Specialty Start Date End Date Zulema Golden PA [address] [facility] [address] [place] [address] PCP - General Internal Medicine 12/30/19 documented as of this encounter
--- OUTSIDE RECORDS SUMMARY | 2025-10-17 17:26 | XMS_ITS | Encounter Summary ---
Author Organization [facility] Address [address] [place] [address] Care Team Providers Care Truck Loader Name Role Phone Abad Mccann MD Primary Care Provider Zulema Golden Primary Care Provider [phone] Abad Mccann MD Unavailable [phone] Encounter Details Date Type Department Care Team (Late st Contact Info) Description 09/24/2017 Scanned Document [facility] [place] [address] [facility] [address] [place] [address] Sarah Sherman MD [address] [facility] [address] [place] [address] Social History Tobacco Use Types Packs/Day Years [...] on filedocumented in this encounter Care Teams Truck Loader Relationship Specialty Start Date End Date Abad Mccann MD [address] [place], [place] [id number] PCP - General Family Medicine 10/09/16 10/28/20 Zulema Golden [address] [place] [address] PCP - General Internal Medicine 10/29/20 Abad Mccann MD [address] [place] [address] [address] Family Medicine 10/29/20 documented as of this encounter
--- OUTSIDE RECORDS SUMMARY | 2025-10-17 17:26 | XMS_ITS | Encounter Summary ---
Author Organization [facility] Address [address] [place] [address] Care Team Providers Care Isotope Technologist Name Role Phone Zulema Golden Primary Care Provider Encounter Details Date Type Department Care Team (Latest Contact Info) Description 05/05/2020 Scanned Document [email or web address] [address] [place] [address] System, Provider Not In 12/31/2019 Endocrinology Review [...] on filedocumented in this encounter Care Teams Isotope Technologist Relationship Specialty Start Date End Date Zulema Golden PA [address] [facility] [address] [place] [address] PCP - General Internal Medicine 12/30/19 documented as of this encounter
--- OUTSIDE RECORDS SUMMARY | 2025-10-17 17:26 | XMS_ITS | Encounter Summary ---
Author Organization [facility] Address [address] [place] [address] Care Team Providers Care Spray Drier Operator Name Role Phone Abad Mccann MD Primary Care Provider Zulema Golden Primary Care Provider [phone] Abad Mccann MD Unavailable [phone] Encounter Details Date Type Department Care Team (Late st Contact Info) Description 09/24/2017 Scanned Document [facility] Breast [facility] & [facility] [place] [address] [facility] [address] [place] [address] Sarah Sherman MD 399 [facility] [address] [place] [address] Social History Tobacco Use Types Packs/Day Years [...] on filedocumented in this encounter Care Teams Spray Drier Operator Relationship Specialty Start Date End Date Abad Mccann MD [address] [place], [place] [phone] PCP - General Family Medicine 10/09/16 10/28/20 Zulema Golden [address] [place] [address] PCP - General Internal Medicine 10/29/20 Abad Mccann MD [address] [place] [address] [address] Family Medicine 10/29/20 documented as of this encounter
--- OUTSIDE RECORDS SUMMARY | 2025-10-17 17:26 | XMS_ITS | Encounter Summary ---
Author Organization [facility] Address [address] [place] [address] Care Team Providers Care Elevator Attendant Name Role Phone Abad Mccann MD Primary Care Provider [phone] Zulema Golden Primary Care Provider [phone] Abad Mccann MD Unavailable [phone] Encounter Details Date Type Department Care Team (Late st Contact Info) Description 12/11/2017 Scanned Document [facility] Breast [facility] & Surgery [place] [address] [facility] [address] [place] [address] Sarah Sherman MD [address] [facility] [address] [place] [address] Social History Tobacco Use Types Packs/Day Years [...] on filedocumented in this encounter Care Teams Elevator Attendant Relationship Specialty Start Date End Date Abad Mccann MD [address] [place] [address] PCP - General Family Medicine 10/09/16 10/28/20 Zulema Golden [address] [place] [address] PCP - General Internal Medicine 10/29/20 Abad Mccann MD [address] [place], [place] [address]mary [address] [place] [address] Family Medicine 10/29/20 documented as of this encounter
--- OUTSIDE RECORDS SUMMARY | 2025-10-17 17:26 | XMS_ITS | Clinical Summary ---
Author Organization [facility] Address [address] [place] [id number] Care Team Providers Care Manager Money Name Role Phone Zulema Golden Primary Care Provider [phone] Abad Mccann MD Unavailable [phone] Allergies Active Allergy Reactions Criticality Noted Date [...] (12/17/2017): Added automatically from request for surgery [id number] Family history of malignant neoplasm of breast 0 12/17/2017 Overview (12/17/2017): Added automatically from request for surgery [id number] Absence of breast, acquired, bilateral 8 Overview (12/17/2017): Added automatically from request for surgery [id number] 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 12/17/2017 Overview (12/17/2017): Added automatically from request for surgery [id number] Schizoaffective disorder, depressive type 2017 Resolved Problems [...] Pap Smear (Ages 21-65) 2019 Influenza Vaccine 05/20/2025 07/23/2022, , 07/06/2020, Additional history exists COVID-19 Vaccine (2024- season) 2025 02/22/2021, 01/31/2021 HPV Vaccines (No Doses Required) Completed Pneumococcal Vaccine: Pediatric (0-5 Years) and At-Risk Patients (6 to 49 Years) Aged Out No longer eligible based on patient's age to complete this topic Insurance [employer] PPO [facility] PPO CIG[employer] PPO [facility] [employer], [facility] Advance Directives * Full Code (Latest Code Status on File) Date Activated Date Inactivated Comments 01/29/2018 10:14 AM 02/23/2018 12:09 PM Question Answer Comments Decision Thoroughly Discussed with: Patient * Full Code Date Activated Date Inactivated Comments 11/12/2017 1:13 PM 01/29/2018 9:20 AM * Full Code Date Activated Date Inactivated Comments 01/10/2017 12:34 PM 01/13/2017 6:32 PM Care Teams Manager Money Relationship Specialty Start Date End Date Zulema Golden [address] [place] [address] PCP - General Internal Medicine 10/29/20 Abad Mccann MD [address] [place] [address] Family Medicine 10/29/20
--- OUTSIDE RECORDS SUMMARY | 2025-10-17 17:26 | XMS_ITS | Clinical Summary ---
Author Organization [facility] Address [address] [place] [address] Phone Care Team Providers Care Relay Checker Name Role Phone Zulema Golden Primary Care Provider [phone] Allergies Active Allergy Reactions Criticality Noted Date Comments Gabapentin Fever,Other High 08/22/2017 Hypotension and fever per patient Touch[employer] Comment: [id number]: fever Guanfacine Low blood pressure,Nausea And Vomiting,Unknown,Other [...] mouth 1 (one) time each day. Active Surgical History Surgery Date Site/Laterality Comments MASTECTOMY [...] X 05/07/2025 11:50 PM EDT Gender Identity Not Listed 05/07/2025 11:50 PM EDT Sexual Orientation Bisexual 05/07/2025 11 :50 PM EDT Last Filed Vital Signs Vital [...] of Health Screening 09/22/2022 Depression Screening 10/20/2024 HPV Vaccines (1 - 3-dose SCDM series) 2025 Diabetes: Annual Urine Albumin-Creatinine Ratio (uACR) 05/08/2025 Diabetes: Blood Sugar Control Test (HGBA1C) 05/08/2025 02/16/2024, 03/31/2018 COVID-19 Vaccine ( season) 2025 02/22/2021, 01/31/2021 Influenza Vaccine (#1) 2025 2, 07/20/2021, 07/06/2020, Additional history exists Diabetes: Annual GFR (Glomerular Filtration Rate) 05/08/2026 05/08/2025, 12/25/2023, 06/23/2022, Additional history exists Hypertension/CHF/CAD Annual BMP Blood Test 05/08/2026 05/08/2025, 12/25/2023, 06/23/2022, Additional history exists Cholesterol Screening (Lipid Panel) 12/24/2028 12/25/2023, 11/28/2017 DTaP,Tdap,and Td Vaccines (2 - Td or Tdap) 02/26/2029 02/26/2019 RSV Immunization Adult Patients (1 - 1-dose 75+ series) 2073 Hepatitis A Vaccines Aged Out 11/19/2019, 06/18/2019, [...] Procedure Name Priority Date/Time Associated Diagnosis Comments COMPREHENSIVE METABOLIC PANEL STAT 05/08/2025 12:48 AM EDT from Last 3 Months or Most Recently Relevant to Health Maintenance Results * (ABNORMAL) Comprehensive metabolic panel (05/08/2025 12:48 AM EDT) Sodium 137 135 - 145 mmol/L LAB CHEMISTRY METHOD 05/08/2025 1:44 AM [facility] Potassium 3.4(L) 3.5 - 5.1 mmol/L LAB CHEMISTRY METHOD 05/08/2025 1:44 AM [facility] Chloride 102 98 - 107 mmol/L LAB CHEMISTRY METHOD 05/08/2025 1:44 AM [facility] CO2 27 24 - 32 mmol/L LAB CHEMISTRY METHOD 05/08/2025 1:44 AM [facility] Anion Gap 8 5 - 14 LAB CHEMISTRY METHOD 05/08/2025 1:44 AM [facility] Glucose 75 70 - 199 mg/dL LAB CHEMISTRY METHOD 05/08/2025 1:44 AM [facility] BUN 10 7 - 20 mg/dL LAB CHEMISTRY METHOD 05/08/2025 1:44 AM [facility] Creatinine 0.93 0.50 - 1.30 mg/dL LAB CHEMISTRY METHOD 05/08/2025 1:44 AM [facility] eGFR 87 >=60 mL/min/1. 73m2 LAB CHEMISTRY METHOD 05/08/2025 1:44 AM [facility] Comment: For non-binary individuals or unknown sex, the equation for female sex is used to calculate the estimated glomerular filtration rate (eGFR). Calculation based on the Chronic Kidney Disease Epidemiology Collaboration (CKD- EPI) equation refit without adjustment for race. BUN/Creatinine Ratio 10.8(L) 12.0 - 20.0 LAB CHEMISTRY METHOD 05/08/2025 1:44 AM [facility] Calcium 8.7 8.4 - 10.2 mg/dL LAB CHEMISTRY METHOD 05/08/2025 1:44 AM [facility] AST (SGOT) 15 5 - 40 unit/L LAB CHEMISTRY METHOD 05/08/2025 1:44 AM EDT [facility] ALT (SGPT) 18 7 - 52 unit/L LAB CHEMISTRY METHOD 05/08/2025 1:44 AM EDT [facility] Alkaline Phosphatase 84 34 - 104 unit/L LAB CHEMISTRY METHOD 05/08/2025 1:44 AM EDT [facility] Total Protein 7.5 6.4 - 8.5 g/dL LAB CHEMISTRY METHOD 05/08/2025 1:44 AM EDT [facility] Albumin 4.3 3.5 - 5.0 g/dL LAB CHEMISTRY METHOD 05/08/2025 1:44 AM EDT [facility] Total Bilirubin 0.4 0.3 - 1.0 mg/dL LAB CHEMISTRY METHOD 05/08/2025 1:44 AM EDT [facility] Blood Venous blood specimen / Unknown Venipuncture / Unknown 05/08/2025 12:48 AM EDT 05/08/2025 12:59 AM EDT [facility] Susannah Cortes MD LAB BLOOD ORDERABLES Final R esult [facility] [address] [place] [address], from Last 3 Months or Most Recently Relevant to Health Maintenance Insurance [employer] Care Teams Relay Checker Relationship Specialty Start Date End Date Zulema Golden PA [address] [place] [id number] PCP - General Financial Auditor 01/31/21
== END 2025-10-17 16:17 | disposition home or self-care (01) ==
LOC: HO.ENCR 15:20
PROVIDERS: PCP Physician Assistant; Visit Provider Registered Nurse Diabetes Educator
DX: E11.65 Type 2 diabetes mellitus with hyperglycemia (principal)

== ENCOUNTER → 2025-10-17 15:19 | Outpatient (BNVA) | payer OTHER, SELFPAY | PROVIDERS: PCP Physician Assistant; Visit Provider Registered Nurse Diabetes Educator | DX: E11.65 Type 2 diabetes mellitus with hyperglycemia (principal); Z79.85 Long-term (current) use of injectable non-insulin antidiabetic drugs | CPT/HCPCS: G0108 ==